=== PATIENT | male | born 1980 | race African-American/Black ===

== ENCOUNTER 2016-11-14 12:08 | Emergency (ER) ==
[2016-11-14 12:57] LABS: MANUAL DIFF NEEDED? NO
[2016-11-14 13:03] LABS: BASO% 0.4 % (0.0-0.8); EOS# 0.23 X1000 (0.0-0.7); EOS% 2.2 % (0.0-10.0); HEMATOCRIT 40.6 % (42.0-52.0); HEMOGLOBIN 13.6 g/dL (14.0-18.0); IMM GRAN# 0.02 X1000 (0.0-0.04); IMM GRAN% 0.2 % (0.0-0.5); LYMPH# 2.31 X1000 (1.2-3.4); LYMPH% 22.3 % (20.5-51.1); MCH 33.7 PG (27-31); MCHC 33.5 g/dL (33-37); MCV 100.7 FL (81-99); MONO# 0.83 X1000 (0.11-0.59); MPV 9.8 FL (7.4-10.4); NEUT% 66.9 % (42.2-75.2); PLT 203 X1000 (130-400); RBC 4.03 XMIL (4.7-6.1)
[2016-11-14 13:20] LABS: INR 1.44; PROTIME 14.6 Seconds (9.2-11.7); PTT 24.4 Seconds (22.0-36.0)
[2016-11-14 13:30] LABS: ALBUMIN 3.5 g/dL (3.5-5.0); CALCIUM 9.5 mg/dL (8.8-10.2); MAGNESIUM 1.8 mg/dL (1.5-2.7); POTASSIUM 3.9 mmol/L (3.5-5.1); TOTAL BILIRUBIN 2.25 mg/dL (0.20-1.00)
--- NOTE | 2016-11-14 13:35 | ED EKG INTERP ---
EKG Interpretation - EKG Time of EKG reading by physician:: 12:23 EKG Read and Signed by:: Jessica Roy EKG Interpretation (*Must complete 3 of following elements*): Abnormal Rate: 88 (possible left atrial enlargement; left anterior fasciclar block; possible anterior infarct; ST and T wave abnormality, consider lateral ischemia ) Rhythm: NSR Attestation - Scribe Verification/Attestation Scribe:: Ekaterina Suárez Acting as Scribe for:: Jessica Roy Scribe documention review:: This chart was documented by a scribe and accurately reflects the service the provider performed and the decisions made by the provider.
[2016-11-14] MEDS ORDERED: LASIX IV ONE (13:47)
[2016-11-14] MEDS ORDERED: VALIUM PO ONE (13:47)
--- NOTE | 2016-11-14 13:54 | PROVIDER DOCUMENTATION ---
HPI-General Adult - General Chief Complaint: Anxiety Stated Complaint: GENERAL Time Seen by Provider: 11/14/16 13:43 Source: patient Allergies/Adverse Reactions: Patient Allergies Allergy/AdvReac Type Severity Reaction Status Date / Time No Known Allergies Allergy Verified 11/14/16 14:19 Home Medications: Home Medication List Medication Instructions Recorded Confirmed Last Taken Type Amlodipine [Norvasc] 5 mg PO DAILY #30 tablet 04/29/16 3 Days Ago Rx Carvedilol [Coreg] 12.5 mg PO BID #60 tablet 04/29/16 3 Days Ago Rx Furosemide 40 mg PO DAILY #30 tablet 04/29/16 3 Days Ago Rx Isosorbide Mononitrate E.r. [Imdur] 60 mg PO DAILY #60 tablet 04/29/16 3 Days Ago Rx LISINOpril [Prinivil] 10 mg PO BID #60 tablet 04/29/16 3 Days Ago Rx - History of Present Illness -Gen Adult Nature of Presenting Problems: Pt is a 36 yom who came to the ED with a cc of chest pain/ panic attack. Pt reports he had pneumonia a year ago and he said he hasn't felt better ever since then. Pt reports he has anxiety and he is taking his friends xanax but hasn't taken it in four days. Pt reports his chest is hurting and thinks its a panic attack. Pt has a hx of a stroke. Location of Pain/Injury: reports: chest Pain Radiation: reports: no radiation Quality of Pain: reports: sharp, tightness Severity: reports: mild Onset/Duration: reports: unsure Timing: reports: still present Associated Symptoms: reports: anxiety, chest pain Similar Symptoms Previously?: No Recently seen or treated by another doctor?: No Review of Systems - Adult - REVIEW OF SYSTEMS - ADULT Constitutional: denies: chills, fever Eyes: denies: decreased vision, double vision Ears, Nose, Mouth & Throat: reports: no symptoms reported Cardiovascular: reports: chest pain. denies: orthopnea, poor circulation Respiratory: reports: no symptoms reported Gastrointestinal: reports: no symptoms reported Genitourinary: reports: no symptoms reported Musculoskeletal: reports: no symptoms reported Integumentary: reports: no symptoms reported Neurological: reports: no symptoms reported Psychiatric: reports: anxiety, panic attacks. denies: anti-depressant use, emotional problems Endocrine: reports: no symptoms reported Hematologic/Lymphatic: reports: no symptoms reported Allergic/Immunologic: reports: no symptoms reported All Other Systems: Reviewed and Negative Past History - Adult - PAST MEDICAL HISTORY-ADULT Review of Records: reports: Old Records Reviewed, Nursing Assessment Review Major Childhood Illnesses: reports: denies history Cardiovascular: reports: HTN Respiratory: reports: denies history. denies: asthma Gastrointestinal: reports: denies history. denies: hepatitis Obstetrical/Gynecological: reports: denies history Genitourinary: reports: denies history Musculoskeletal: reports: denies history Neurological: reports: denies history Endocrine/Immune: reports: denies history Other Conditions: reports: denies history - PRIOR SURGERIES/PROCEDURES Surgical/Procedure History: reports: none - PRIOR HOSPITALIZATIONS Prior Hospitalizations: reports: none - IMMUNIZATION STATUS Childhood Immunizations: See Nurse Assessment Flu Vaccine: See Nurse Assessment - FAMILY HISTORY Family History: reviewed, not pertinent Physical Exam-General - PHYSICAL EXAM-ADULT Initial Vital Signs Reviewed: Yes - CONSTITUTIONAL General Appearance: alert, anxious - EYES Eyes: PERRL/EOMI, pink conjunctivae, fundi clear, no AV nicking - HEAD, EARS, NOSE, MOUTH & THROAT HENMT: normocephalic/atraumatic, moist mucous membranes, normal ENT inspection, TMs normal - RESPIRATORY Respiratory: chest non-tender, lungs clear, normal breath sounds, other ( tachypnic) - CARDIOVASCULAR Cardiovascular: normal peripheral pulses, regular rate, rhythm - GASTROINTESTINAL (ABDOMEN) Abdominal Exam: normal bowel sounds, non tender, soft - MUSCULOSKELETAL Back Exam: normal inspection, no CVA tenderness Extremity: non-tender - NEUROLOGIC Neurologic: grossly normal - PSYCHIATRIC Psych/Mental Status: oriented x 3, anxious Progress - PLAN OF CARE/RESULTS Progress/Plan/Lab Results: Vital Signs - 24 hr 11/14/16 12:15 Temperature 97.5 F L Pulse Rate 90 Respiratory 24 Rate Blood Pressure 166/121 O2 Sat by Pulse 99 Oximetry Orders Category Date Time Status IV Insertion ORDERED Care 11/14/16 13:47 Active ANGIOGRAM/PULMONARY ARTERIES [CT] Stat Exams 11/14/16 13:47 Ordered CHEST-2 VIEWS [RAD] Stat Exams 11/14/16 12:28 Taken CBC WITH ELECTRONIC DIFF [HEME] Stat Lab 11/14/16 12:30 Completed CK PROFILE [SP CHEM] Stat Lab 11/14/16 12:30 Completed COMPREHENSIVE METABOLIC PANEL [CHEM] Stat Lab 11/14/16 12:30 Completed D-DIMER [CHEM] Stat Lab 11/14/16 12:30 Completed MAGNESIUM [CHEM] Stat Lab 11/14/16 12:30 Completed PRO B-NATRIURETIC PEPTIDE Stat Lab 11/14/16 12:30 Completed PROTIME WITH INR [COAG] Stat Lab 11/14/16 12:30 Completed PTT [COAG] Stat Lab 11/14/16 12:30 Completed TROPONIN T Stat Lab 11/14/16 12:30 Completed Diazepam [Valium] Med 11/14/16 13:47 Discontinued 2 mg PO NOW ONE Furosemide [Lasix] Med 11/14/16 13:47 Discontinued 60 mg IV NOW ONE EKG [EKG] Stat Ther 11/14/16 12:18 Ordered Laboratory Tests 11/14/16 11/14/16 11/14/16 12:30 12:30 12:30 WBC 10.35 RBC 4.03 L Hgb 13.6 L Hct 40.6 L MCV 100.7 H MCH 33.7 H MCHC 33.5 RDW Std Deviation 13.2 Plt Count 203 MPV 9.8 Immature Gran % (Auto) 0.2 Neut % (Auto) 66.9 Lymph % (Auto) 22.3 Baldwin % (Auto) 8.0 Eos % (Auto) 2.2 Baso % (Auto) 0.4 Immature Gran # (Auto) 0.02 Neut # (Auto) 6.92 H Lymph # (Auto) 2.31 Baldwin # (Auto) 0.83 H Eos # (Auto) 0.23 Baso # (Auto) 0.04 PT INR PTT (Actin FS) D-Dimer 3.15 H Sodium 138 Potassium 3.9 Chloride 99 Carbon Dioxide 24 L Anion Gap 15 BUN 18 Creatinine 1.7 H Estimated GFR/1.73 m2 55 BUN/Creatinine Ratio 11 Glucose 153 H Calculated Osmolality 281 Calcium 9.5 Magnesium 1.8 Total Bilirubin 2.25 H AST 166 H ALT 200 H Alkaline Phosphatase 90 Creatine Kinase 108 Troponin T [id number]-[id number] Pept Total Protein 6.0 L Albumin 3.5 Globulin 2.5 Albumin/Globulin Ratio 1.4 11/14/16 11/14/16 11/14/16 12:30 12:30 12:30 WBC RBC Hgb Hct MCV MCH MCHC RDW Std Deviation Plt Count MPV Immature Gran % (Auto) Neut % (Auto) Lymph % (Auto) Baldwin % (Auto) Eos % (Auto) Baso % (Auto) Immature Gran # (Auto) Neut # (Auto) Lymph # (Auto) Baldwin # (Auto) Eos # (Auto) Baso # (Auto) PT 14.6 H INR 1.44 PTT (Actin FS) 24.4 D-Dimer Sodium Potassium Chloride Carbon Dioxide Anion Gap BUN Creatinine Estimated GFR/1.73 m2 BUN/Creatinine Ratio Glucose Calculated Osmolality Calcium Magnesium Total Bilirubin AST ALT Alkaline Phosphatase Creatine Kinase Troponin T < 0.010 [id number] Pept 8106 H Total Protein Albumin Globulin Albumin/Globulin Ratio - REASSESSMENT Reassessment #1 Time Reassessed: 15:50 (pt reports he feels better after urinating all of the fluid off. ) Status: improving Reassessment #2 Time Reassessed: 16:07 (pt feels better with medication and will follow up with a PCP. Pt is okay with going home. ) Status: improving - CT/MRI 1 CT Study: Angiogram (1. No evidence of pulmonary embolism 2. Cardiomegaly with apparent mild pulmonary edema/congestive heart failure.) Departure - Departure Time of Disposition Order: 16:06 DIAGNOSIS: Panic attack Congestive heart failure (CHF) Qualifiers: Congestive heart failure type: unspecified congestive heart failure type Congestive heart failure chronicity: unspecified congestive heart failure chronicity Qualified Code(s): I50.9 - Heart failure, unspecified Hypertension Qualifiers: Hypertension type: unspecified secondary hypertension Qualified Code(s): I15.9 - Secondary hypertension, unspecified; I15 - Secondary hypertension Disposition: HOME 01 Certified Medical Emergency: Emergent Condition: Stable Attestation - Scribe Verification/Attestation Scribe:: Ekaterina Suárez Acting as Scribe for:: Jessica Roy Scribe documention review:: This chart was documented by a scribe and accurately reflects the service the provider performed and the decisions made by the provider.
[2016-11-14] MEDS ORDERED: XOPENEX NEB INH ONE (14:04)
[2016-11-14] MEDS ORDERED: NS NEB INH SCH (14:15)
--- NOTE | 2016-11-14 15:36 | Diag Imaging Result Document ---
PROCEDURE NAME: ANGIOGRAM/PULMONARY ARTERIES - 11/14/2016 CT ANGIOGRAM OF PULMONARY ARTERIES WITH CONTRAST: Exam performed with intravenous contrast. A dose-reduction protocol was used. Axial and reformatted coronal images are obtained. COMPARISON: 02/04/2016. FINDINGS: There are no filling defects identified in the pulmonary arteries. There is cardiomegaly similar to the previous exam. There is a small right pleural effusion. There are hazy bilateral pulmonary opacities which may relate to pulmonary edema. There is mild valvular infiltrate or edema at the inferior right lower lobe. There is apparent mild scarring at the anterior right lower lobe. There is no dense consolidation or pneumothorax identified. IMPRESSION: 1. No evidence of pulmonary embolism. 2. Cardiomegaly with apparent mild pulmonary edema/congestive heart failure.
[2016-11-14 15:42] VITALS: BP 167/99
[2016-11-14] MEDS ORDERED: CATAPRES PO ONE (15:50)
--- NOTE | 2016-11-14 15:59 | Diag Imaging Result Document ---
PROCEDURE NAME: CHEST-2 VIEWS - 11/14/2016 CHEST 2 VIEWS: COMPARISON: 04/25/2016. FINDINGS: There is stable cardiomegaly. There is mild infiltrate or edema at the right base. There is no dense consolidation, gross pulmonary edema, pleural effusion, or pneumothorax identified. IMPRESSION: Stable cardiomegaly. Mild infiltrate or edema at the right base.
--- NOTE | 2016-11-16 10:38 | EKG Report ---
Test Performed on : 11/14/2016 12:23:25 PM Test Reason : anxiety Blood Pressure : / mmHG Vent. Rate : 088 BPM Atrial Rate : 088 BPM P-R Int : 174 ms QRS Dur : 094 ms QT Int : 402 ms P-R-T Axes : 059 -50 117 degrees QTc Int : 486 ms Normal sinus rhythm. Possible Left atrial enlargement Left anterior fascicular block Cannot rule out Inferior infarct (masked by fascicular block?) , age undetermined Possible Anterior infarct , age undetermined ST & T wave abnormality, consider lateral ischemia Abnormal ECG No previous ECGs available Unconfirmed Result
== END 2016-11-14 16:35 | disposition home or self-care (01) ==
LOC: ED 12:08
DX: F41.0 Panic disorder [episodic paroxysmal anxiety] (principal); I50.9 Heart failure, unspecified; I10 Essential (primary) hypertension; R94.31 Abnormal electrocardiogram [ECG] [EKG]; R07.89 Other chest pain; R06.82 Tachypnea, not elsewhere classified; Z86.73 Personal history of transient ischemic attack (TIA), and cerebral infarction without residual deficits
CPT/HCPCS: 71020; 71275; 80053; 82550; 83735; 83880; 84484; 85025; 85379; 85610; 85730; 93005; 94640; J1940; Q9967

== ENCOUNTER 2019-06-05 18:09 | Inpatient (IN) ==
[2019-06-05] MEDS ORDERED: LASIX IV ONE (18:49)
[2019-06-05 19:15] LABS: BASO# 0.04 X1000 (0.0-0.2); BASO% 0.3 % (0.0-0.8); EOS# 0.24 X1000 (0.0-0.7); EOS% 1.7 % (0.0-10.0); HEMATOCRIT 40.3 % (42.0-52.0); HEMOGLOBIN 13.9 g/dL (14.0-18.0); IMM GRAN# 0.04 X1000 (0.0-0.04); IMM GRAN% 0.3 % (0.0-0.5); LYMPH# 3.84 X1000 (1.2-3.4); LYMPH% 27.5 % (20.5-51.1); MCH 31.8 PG (27-31); MCHC 34.5 g/dL (33-37); MCV 92.2 FL (81-99); MONO# 1.39 X1000 (0.11-0.59); MPV 10.2 FL (7.4-10.4); NEUT# 8.41 X1000 (1.4-6.5); NEUT% 60.2 % (42.2-75.2); PLT 191 X1000 (130-400); RBC 4.37 XMIL (4.7-6.1); RDW 14.6 % (11.5-14.5); WBC 13.96 X1000 (4.8-10.8)
[2019-06-05 19:36] LABS: AGAP 14; ALBUMIN 3.9 g/dL (3.5-5.0); ALKALINE PHOSPHATASE 79 U/L (32-122); BUN 17 mg/dL (8-22); CALCIUM 8.8 mg/dL (8.8-10.2); CHLORIDE 100 mmol/L (98-107); COSMO 274; CREATININE 1.2 mg/dL (0.7-1.2); ESTIMATED GFR > 60; GLUCOSE 116 mg/dL (70-104); GOT 138 U/L (10-34); GPT 372 U/L (10-44); LIPASE 31 U/L (13-60); POTASSIUM 3.1 mmol/L (3.5-5.1); SODIUM 136 mmol/L (136-145); TCO2 22 mmol/L (25-35); TOTAL PROTEIN 6.8 g/dL (6.3-8.3)
[2019-06-05 19:37] LABS: AMYLASE 39 U/L (20-200); CK PROFILE 156 U/L (24-204)
--- NOTE | 2019-06-05 20:06 | Diag Imaging Result Doc PS360 ---
CHEST-PORTABLE - 06/05/2019 INDICATION: shortness of breath COMPARISON: 12/22/2016 FINDINGS: Stable cardiomegaly. Pulmonary vascularity is top normal. No infiltrates or edema. No pneumothorax or pleural effusion. IMPRESSION: Cardiomegaly. Electronically signed by Kaushik Mcelroy 06/05/2019 8:03 PM
[2019-06-05 23:38] LABS: BILIRUBIN URINE NEGATIVE (NEGATIVE); BLOOD URINE NEGATIVE (NEGATIVE); CLARITY CLEAR (CLEAR); COLOR YELLOW; GLUCOSE URINE NEGATIVE (NEGATIVE); KETONE URINE NEGATIVE (NEGATIVE); LEUKOCYTES URINE NEGATIVE (NEGATIVE); NITRITE URINE NEGATIVE (NEGATIVE); PROTEIN URINE TRACE mg/dL (NEGATIVE); SP GRAVITY URINE 1.005; UROBILINOGEN URINE NORMAL
[2019-06-05] MEDS: XANAX PO PRN (23:47)
[2019-06-05] MEDS: CATAPRES PO SCH (23:47)
[2019-06-05 23:48] LABS: URINE BACTERIA 3+ /HFP; URINE EPITHELIAL CELLS <10 /HPF (<10); URINE YEAST NONE SEEN /HPF
[2019-06-05 23:49] LABS: URINE CAST NONE SEEN /LPF; URINE CRYSTAL CA OXALATE PRESENT /HPF
[2019-06-05 23:50] LABS: URINE SOURCE CLEAN CATCH; URINE WBC <10 /HPF (<10)
--- NOTE | 2019-06-06 03:20 | EKG Report ---
Test Performed on : 06/05/2019 9:27:45 PM Test Reason : shortness of breath Blood Pressure : / mmHG Vent. Rate : 084 BPM Atrial Rate : 084 BPM P-R Int : 166 ms QRS Dur : 110 ms QT Int : 460 ms P-R-T Axes : 060 -50 100 degrees QTc Int : 543 ms Normal sinus rhythm. Biatrial enlargement Pulmonary disease pattern Left anterior fascicular block Left ventricular hypertrophy ST & T wave abnormality, consider lateral ischemia Prolonged QT Abnormal ECG When compared with ECG of 05-DEC-2018 19:19, premature ventricular complexes. are no longer present Nonspecific T wave abnormality now evident in Anterior leads Unconfirmed Result
[2019-06-06 06:33] LABS: BASO# 0.04 X1000 (0.0-0.2); BASO% 0.3 % (0.0-0.8); EOS# 0.28 X1000 (0.0-0.7); EOS% 1.9 % (0.0-10.0); HEMATOCRIT 39.5 % (42.0-52.0); HEMOGLOBIN 13.1 g/dL (14.0-18.0); IMM GRAN# 0.06 X1000 (0.0-0.04); IMM GRAN% 0.4 % (0.0-0.5); LYMPH# 4.23 X1000 (1.2-3.4); MCH 31.1 PG (27-31); MCHC 33.2 g/dL (33-37); MCV 93.8 FL (81-99); MONO# 1.83 X1000 (0.11-0.59); MONO% 12.5 % (1.7-9.3); MPV 10.3 FL (7.4-10.4); NEUT# 8.15 X1000 (1.4-6.5); NEUT% 55.9 % (42.2-75.2); PLT 181 X1000 (130-400); RBC 4.21 XMIL (4.7-6.1); RDW 14.8 % (11.5-14.5); WBC 14.59 X1000 (4.8-10.8)
[2019-06-06 06:38] LABS: ALBUMIN 3.6 g/dL (3.5-5.0); CALCIUM 8.9 mg/dL (8.8-10.2); CREATININE 1.4 mg/dL (0.7-1.2); PHOSPHORUS 3.1 mg/dL (2.7-4.5); POTASSIUM 3.6 mmol/L (3.5-5.1)
[2019-06-06] MEDS ORDERED: POTASSIUM CHLORIDE 60 MEQ in NS 500 ML IV ONE (08:00)
[2019-06-06] MEDS ORDERED: PRINIVIL PO SCH (09:00)
[2019-06-06] MEDS: PRINIVIL PO SCH (09:32)
[2019-06-06] MEDS: LASIX IV SCH ×2 (09:32→21:38)
[2019-06-06] MEDS: NORVASC PO SCH (09:32)
[2019-06-06] MEDS: CATAPRES PO SCH ×3 (09:32→17:21)
[2019-06-06] MEDS: XANAX PO PRN (09:45)
--- NOTE | 2019-06-06 13:42 | ECHO REPORT ---
ORDER DATE: 06/05/2019 INDICATION FOR THE STUDY: Congestive heart failure. FINDINGS: 1. The right atrium is severely enlarged with a dimension of 5.6 cm. 2. Moderate tricuspid regurgitation. RV systolic pressure of 56. 3. The right ventricle is dilated with severe reduction in RV systolic function. 4. Mild pulmonic insufficiency. 5. Severe left atrial enlargement with a volume index of 70. 6. No mitral valve prolapse. There is apical tenting of the mitral leaflets, consistent with a dilated left ventricle. Mild to moderate mitral regurgitation. No evidence of mitral stenosis. 7. Severe dilatation of the left ventricle with an end-diastolic dimension of 7.5 cm. Normal wall thicknesses with a posterior and interventricular septal wall thickness of 0.9 cm each. Severe reduction in LV systolic function with an estimated ejection fraction of 10%. Definity echocontrast was used and seems to demonstrate thrombus adherent to the distal inferior wall. The ejection fraction was noted to be 15-20% in April of 2016. 8. The aortic valve opens well. It is trileaflet. Mild insufficiency. No stenosis. 9. The aorta appears normal in visualized segments. 10. There is no pericardial effusion identified on this study. IMPRESSION: 1. Severe four-chamber enlargement. 2. Severe biventricular systolic dysfunction with a left ventricular systolic function of 10%. 3. Likely ventricular thrombus identified adherent to the distal inferior wall. Results of this were relayed to the primary team at 1325 hours. 4. Valvular insufficiencies as described above. cc: MD Preston Brown MD
[2019-06-06] MEDS ORDERED: LOVENOX SUBQ ONE (15:00)
[2019-06-06 15:17] LABS: INR 1.26; PROTIME 16.5 Seconds (11.0-16.0)
[2019-06-06] MEDS: COUMADIN PO SCH (21:38)
--- NOTE | 2019-06-06 23:24 | HISTORY AND PHYSICAL ---
CHIEF COMPLAINT: Shortness of breath. HISTORY OF PRESENT ILLNESS: The patient is a 38-year-old male whose entire history is unfortunately quite difficult to follow. He states that he just got out of correction today, but notes that he has been out of his medications for a month. He then states he has been having symptoms for a day or 2. Upon asking the question again, he has had symptoms for 2 or 3 weeks. He notes that he has had increased cough, increased shortness of breath and increased swelling. All of these symptoms seem to worsen when he lies in the bed. ALLERGIES: No known drug allergies. MEDICATIONS: He appears to have been on Lasix 40 mg, Norvasc 10 mg, clonidine 0.1 t.i.d. and lisinopril 10, although it is unclear as to when he has taken these in the past. PAST MEDICAL HISTORY: Congestive heart failure. He has had a stroke that affected his vision and his memory. PAST SURGICAL HISTORY: Denies any surgical intervention. REVIEW OF SYSTEMS: As noted above. Denies any fevers or chills. He does have cough, congestion, shortness of breath, increased work of breathing, dyspnea on exertion, pedal edema, PND, orthopnea. Denies true chest pains. Denies headaches. Denies focalized weakness. Denies dysuria or frequency. Denies constipation, melena or hematochezia. FAMILY HISTORY: Positive for hypertension. SOCIAL HISTORY: The patient does have a history of smoking, although notes he has not been smoking recently. Denies any recent illicit drug use. PHYSICAL EXAMINATION: VITAL SIGNS: Temperature 97 degrees, pulse 75, respiratory 18, BP 130/100, saturation 99% on room air. GENERAL: The patient is awake, alert, currently in mild respiratory distress, but he is also lying flat in his bed as he has just had an echocardiogram. HEENT: Normocephalic. NECK: Supple. No appreciable JVD. CARDIOVASCULAR: Regular rate. No murmurs. CHEST: Decreased breath sounds bilaterally, with mild wheezing throughout. The patient is obviously short of breath. ABDOMEN: Soft, nondistended. EXTREMITIES: Moves all extremities. He has trace edema. NEUROLOGIC: No focal changes. LABORATORY DATA: WBC is 13, creatinine 1.2, glucose 116. DIAGNOSTIC DATA: Chest x-ray demonstrates cardiomegaly, and pulmonary vascularity appears to be increased. ASSESSMENT: Congestive heart failure with exacerbation. The patient has not had an echocardiogram recently. We are going to perform this, place him on Lasix intravenously. Use breathing treatments as needed. Further orders as needed. ADDENDUM: Prior to dictation, the patient has had an echocardiogram. It demonstrates a significantly depressed EF of 10% as well as a probable LV thrombus. We have consulted Cardiology, given this information. We are going to transfer him to [facility] for further evaluation, place him on Lasix as well as Lovenox until we can further delineate the thrombus. cc: Shaheen Page MD
[2019-06-07] MEDS: LOVENOX SUBQ SCH ×2 (05:18→18:17)
[2019-06-07 06:37] LABS: INR 1.19; PROTIME 15.3 Seconds (11.0-16.0)
[2019-06-07 07:16] LABS: AGAP 15; ALBUMIN 3.6 g/dL (3.5-5.0); BUN 20 mg/dL (8-22); CALCIUM 8.5 mg/dL (8.8-10.2); CHLORIDE 100 mmol/L (98-107); COSMO 289; CREATININE 1.3 mg/dL (0.7-1.2); ESTIMATED GFR > 60; GLUCOSE 99 mg/dL (70-104); POTASSIUM 2.8 mmol/L (3.5-5.1); SODIUM 144 mmol/L (136-145); TCO2 29 mmol/L (25-35)
[2019-06-07] MEDS: CATAPRES PO SCH (08:37)
[2019-06-07] MEDS: LASIX IV SCH ×2 (08:37→20:06)
[2019-06-07] MEDS: PRINIVIL PO SCH (08:38)
[2019-06-07] MEDS: NORVASC PO SCH (08:38)
[2019-06-07] MEDS ORDERED: KLOR-CON PO ONE ×2 (08:58→14:47)
[2019-06-07] MEDS: COREG PO SCH ×2 (15:40→20:06)
[2019-06-07] MEDS: COUMADIN PO SCH (20:06)
--- NOTE | 2019-06-08 00:33 | CONSULTATION ---
DATE OF CONSULTATION: 06/07/2019 IMPRESSION: 1. Left ventricular thrombus. 2. Acute on chronic systolic heart failure, improving with diuresis. 3. Severe nonischemic cardiomyopathy. 4. Polysubstance abuse. 5. Previous pulmonary embolus in the past. 6. Hypertension. 7. Tobacco abuse. RECOMMENDATIONS: 1. Continue ANGEL inhibitor and beta-dot. 2. Continue diuresis. 3. Anticoagulation with Lovenox, transitioning to warfarin is appropriate. Target INR is 2.0 to 3.0. The rationale for anticoagulation discussed with the patient. 4. Cessation of polysubstance abuse and smoking strongly advised. HISTORY: This is a 38-year-old, male with past history of severe nonischemic cardiomyopathy, polysubstance abuse with cocaine, chronic cigarette use, previous pulmonary embolus, and hypertension was admitted for further management of acute on chronic systolic heart failure. He has had progressive shortness of breath for more than a week as well as some lower extremity swelling. He was recently hospitalized. He was recently incarcerated for a few weeks and was unable to get his medications during that time. He is being diuresed with IV Lasix and is improving. Echocardiography demonstrated severely depressed left ventricular ejection fraction of 10 to 15 percent as well as apical thrombus. PAST MEDICAL HISTORY: 1. Chronic systolic heart failure. 2. Severe nonischemic cardiomyopathy. 3. Polysubstance abuse. 4. Hypertension. 5. Previous pulmonary embolus. 6. Hypertension. 7. Previous cerebrovascular accident. PAST SURGICAL HISTORY: None. ALLERGIES: No known drug allergies. MEDICATIONS PRIOR TO ADMISSION: As listed. SOCIAL HISTORY: He is . He is disabled but has not obtained disability through SSI. He smokes 1/2 pack of cigarettes per day. He has history of cocaine abuse. Does not use alcohol. FAMILY HISTORY: Positive for hypertension. REVIEW OF SYSTEMS: Pulmonary: Noncontributory beyond history of present illness. Gastrointestinal: Noncontributory beyond history of present illness. Constitutional: Noncontributory beyond history of present illness. Remainder review of systems negative/noncontributory with 14 total systems reviewed. PHYSICAL EXAM: General: This is an adult male, in no distress on room air. Vital signs: Blood pressure 121/91, heart rate 88. HEENT: Extraocular movements appear intact. Mucous membranes are moist. Neck: Supple without jugular venous distention evident. Chest: Clear to auscultation. Cardiac: Reveals a regular rate and rhythm without appreciable murmur or gallop. Abdomen: Soft. Bowel sounds normal. Extremities: Without edema. Neurologic: Reveals him to be alert and fully oriented. Speech is fluent. Moves all 4 extremities equally well. Skin: Warm and dry. Psychiatric: Reveals mood to be appropriate. PERTINENT DATA: A 12-lead electrocardiogram demonstrates normal sinus rhythm, biatrial enlargement, left anterior fascicular block, and left hypertrophy with repolarization abnormality. LABORATORY DATA: Includes a sodium 144, potassium 2.8, chloride 100, carbon dioxide 29, BUN 20, creatinine 1.3. Glucose 99. White blood cell count 14.6, hematocrit 39.5, hemoglobin 13.1, platelet count 181,000. CPK 156. Troponin T less than 0.01. cc: Chapo Ward MD
[2019-06-08] MEDS: TYLENOL PO PRN ×3 (03:14→23:02)
--- NOTE | 2019-06-08 03:49 | PROGRESS NOTE ---
DATE: 06/07/2019 SUBJECTIVE: The patient is resting comfortably in bed. He denies any shortness of breath. He states that the swelling in his legs is a little bit better. OBJECTIVE: Vital Signs: Temperature 97.8 degrees, blood pressure 116/90, heart rate 91, respirations 18, O2 saturation 99% on 2 L nasal cannula. Intake 925; output 1.2 L. General: This is a young male, lying in bed in no acute distress. Heart: S1, S2 normal. Regular rate and rhythm. Lungs: Equal air entry bilaterally. No wheezing. No rales. Abdomen: Positive bowel sounds. Soft, nontender, nondistended. Extremities: 2+ edema bilaterally. Neurologic: The patient is alert and oriented x4. LABS: Sodium 144, potassium 2.8, chloride 100, CO2 29, BUN 20, creatinine 1.3, glucose 99. ASSESSMENT AND PLAN: 1. Acute on chronic systolic CHF exacerbation. The patient is currently on diuretic therapy. Continue with the current medications as directed by the collar sewer. 2. Severe nonischemic cardiomyopathy. Aware. The patient likely needs a LifeVest or possible automatic implantable cardiac defibrillator implantation. Further discussions to be planned by the collar sewer. 3. Left ventricular thrombus. The patient is currently on full dose Lovenox and warfarin therapy. Monitor the INR daily. 4. Alcohol dependence. The patient has been counseled about alcohol cessation. 5. Hypokalemia. Will replace the patient's potassium. 6. Polysubstance abuse. Aware. Counseled the patient about cessation. cc: Alexa Enriquez MD MTDD
[2019-06-08] MEDS: LOVENOX SUBQ SCH ×2 (05:32→18:28)
--- NOTE | 2019-06-08 06:40 | Diag Imaging Result Doc PS360 ---
EXAM: CHEST-PORTABLE HISTORY: dyspnea TECHNIQUE: Chest single view COMPARISON: 06/05/2019 FINDINGS: The lungs are well expanded. The heart remains enlarged. No pulmonary edema. No pneumonia. No pleural effusions identified. IMPRESSION: Cardiomegaly Electronically signed by Reynold Holley 06/08/2019 6:38 AM
[2019-06-08 06:42] LABS: HEMATOCRIT 44.6 % (42.0-52.0); HEMOGLOBIN 15.8 g/dL (14.0-18.0); MCH 33.3 PG (27-31); MCHC 35.4 g/dL (33-37); MCV 94.1 FL (81-99); MPV 10.9 FL (7.4-10.4); RBC 4.74 XMIL (4.7-6.1); RDW 14.9 % (11.5-14.5); WBC 13.09 X1000 (4.8-10.8)
[2019-06-08 06:51] LABS: INR 1.12; PROTIME 14.6 Seconds (11.0-16.0)
[2019-06-08 07:09] LABS: AGAP 15; ALBUMIN 3.5 g/dL (3.5-5.0); BUN 25 mg/dL (8-22); CHLORIDE 101 mmol/L (98-107); COSMO 285; CREATININE 1.3 mg/dL (0.7-1.2); ESTIMATED GFR > 60; GLUCOSE 124 mg/dL (70-104); MAGNESIUM 1.8 mg/dL (1.5-2.7); PHOSPHORUS 3.9 mg/dL (2.7-4.5); POTASSIUM 3.6 mmol/L (3.5-5.1); SODIUM 140 mmol/L (136-145); TCO2 24 mmol/L (25-35)
--- NOTE | 2019-06-08 07:32 | EKG Report ---
Test Performed on : 06/08/2019 06:52:59 AM Test Reason : dyspnea Blood Pressure : / mmHG Vent. Rate : 070 BPM Atrial Rate : 070 BPM P-R Int : 174 ms QRS Dur : 104 ms QT Int : 450 ms P-R-T Axes : 052 -46 083 degrees QTc Int : 486 ms Normal sinus rhythm. Biatrial enlargement Left axis deviation Left ventricular hypertrophy Nonspecific ST and T wave abnormality Prolonged QT Abnormal ECG When compared with ECG of 05-JUN-2019 21:27, (Unconfirmed) Nonspecific T wave abnormality no longer evident in Anterior leads QT has shortened Confirmed by Laura DANIEL, Justen Betts ([id number]) on 06/09/2019 6:59:11 AM
[2019-06-08] MEDS: NORVASC PO SCH (08:17)
[2019-06-08] MEDS: COREG PO SCH ×2 (08:17→20:24)
[2019-06-08] MEDS: LASIX IV SCH ×2 (08:18→20:23)
[2019-06-08] MEDS: PRINIVIL PO SCH (08:18)
[2019-06-08] MEDS ORDERED: MAGNESIUM SULFATE 2 GM/S.W.I. 2 GM/50 ML IVPB IV ONE (08:23)
[2019-06-08] MEDS: XANAX PO PRN (08:28)
--- NOTE | 2019-06-08 18:29 | PROGRESS NOTE ---
DATE: 06/08/2019 SUBJECTIVE: Patient continues without chest discomfort or shortness of breath on room air. OBJECTIVE: Blood pressure 110/82, heart rate 78, oxygen saturation 95% on room air. There is no significant jugular venous distention. Chest is clear to auscultation. Cardiac exam reveals a regular rate and rhythm without appreciable murmur or gallop. Extremities are without edema. LABORATORY DATA: White blood cell count 13.09, hematocrit 44.6, hemoglobin 15.8 and platelet count 222,000. ProTime 14.6, INR 1.12. Sodium 140, potassium 3.6, chloride 101, carbon dioxide 24, BUN 25, creatinine 1.3, and glucose 124. IMPRESSION: 1. Chronic systolic heart failure. Volume status improved with diuresis. 2. Left ventricular thrombus. 3. Severe nonischemic cardiomyopathy. 4. Polysubstance abuse. 5. Previous pulmonary embolus in the past. 6. Hypertension. 7. Chronic cigarette use. RECOMMENDATIONS: 1. Reduce amlodipine to 5 mg daily and increase lisinopril. 2. Transition from IV Lasix to oral Lasix 40 mg p.o. daily. 3. Continue efforts to anticoagulate with Lovenox transitioning to warfarin once INR is at least 2.0. Target INR 2.0 to 3.0. 4. Cessation of polysubstance abuse and smoking strongly advised. cc: Chapo Ward MD
--- NOTE | 2019-06-08 20:23 | PROGRESS NOTE ---
DATE: 06/08/2019 SUBJECTIVE: The patient is resting comfortably in bed. He has no complaints today. OBJECTIVE: Vital Signs: Temperature 97.6 degrees, blood pressure 124/81, heart rate 83, respirations 16, O2 saturations 100% on room air. General: This is a young male lying in bed in no acute distress. Heart: S1, S2 normal. Regular rate and rhythm. Lungs: Clear to auscultation bilaterally. Abdomen: Positive bowel sounds. Soft, nontender, nondistended. Extremities: No edema, no cyanosis. Neurologic: The patient is alert and oriented x4. LABORATORY DATA: White blood cell count 13, hemoglobin 15, hematocrit 44, platelets 222,000. Sodium 140, potassium 3.6, chloride 101, CO2 24, BUN 25, creatinine 1.3, glucose 125. ASSESSMENT AND PLAN: 1. Acute on chronic systolic congestive heart failure exacerbation. Continue with the current medications as directed by the corporate vp advertising & online. 2. Severe nonischemic cardiomyopathy. Aware. The patient will likely need a LifeVest prior to discharge. 3. Left ventricular thrombus. Continue on Lovenox and full-dose warfarin. We will continue to monitor the INR until therapeutic. 4. Alcohol dependence. The patient has been counseled about alcohol cessation. 5. Polysubstance abuse. Aware. The patient has been counseled about cessation. 6. Chronic kidney disease. Stable. cc: Alexa Enriquez MD
[2019-06-08] MEDS: COUMADIN PO SCH (20:24)
[2019-06-09] MEDS: XANAX PO PRN (04:07)
[2019-06-09 05:42] LABS: INR 1.17; PROTIME 15.1 Seconds (11.0-16.0)
[2019-06-09 05:50] LABS: CALCIUM 9.4 mg/dL (8.8-10.2); CREATININE 1.6 mg/dL (0.7-1.2); POTASSIUM 3.5 mmol/L (3.5-5.1)
[2019-06-09] MEDS: LASIX IV SCH (08:06)
[2019-06-09] MEDS: COREG PO SCH ×2 (08:06→21:12)
[2019-06-09] MEDS: TYLENOL PO PRN ×2 (08:06→21:12)
[2019-06-09] MEDS: PRINIVIL PO SCH (08:06)
[2019-06-09] MEDS: NORVASC PO SCH (08:06)
[2019-06-09] MEDS: LOVENOX SUBQ SCH ×2 (08:11→21:12)
--- NOTE | 2019-06-09 17:42 | PROGRESS NOTE ---
DATE: 06/09/2019 SUBJECTIVE: The patient is resting comfortably in bed. He has no complaints. OBJECTIVE: Vital Signs: Temperature 98.5 degrees, blood pressure 138/86, heart rate 87, respirations 15, O2 saturations 100% on room air. General: This is an elderly male lying in bed in no acute distress. Heart: S1, S2 normal. Regular rate and rhythm. Lungs: Clear to auscultation bilaterally. Abdomen: Positive bowel sounds. Soft, nontender, nondistended. Extremities: No edema. No cyanosis. Neurologic: The patient is alert and oriented x3. LABORATORY DATA: Sodium 141, potassium 3.5, chloride 98, CO2 28, BUN 29, creatinine 1.6, glucose 127. ASSESSMENT AND PLAN: 1. Acute on chronic systolic congestive heart failure exacerbation. Improved. The patient's diuretic therapy has been discontinued. Continue to monitor closely. 2. Severe nonischemic cardiomyopathy. Aware. 3. Left ventricular thrombus. We will increase the warfarin dosage to 7.5 mg at bedtime. Continue with Lovenox bridge. Continue to monitor the INR daily. 4. Alcohol dependence. The patient has been counseled about cessation. 5. Acute kidney injury. This is likely diuretic induced. The diuretic has been discontinued. We will monitor the patient's renal function closely. 6. Polysubstance abuse. Aware. The patient has been counseled about cessation. cc: Alexa Enriquez MD
--- NOTE | 2019-06-09 18:52 | PROGRESS NOTE ---
DATE: 06/09/2019 SUBJECTIVE: Patient continues without chest discomfort or dyspnea. He continues on room air. OBJECTIVE: Vital Signs: Blood pressure 138/86, heart rate 87, oxygen saturation 100% on room air. Neck: Jugular venous distention cannot be appreciated. Chest: Clear to auscultation bilaterally. Cardiac Exam: Reveals a regular rate and rhythm without appreciable murmur or gallop. Extremities: Without edema. LABORATORY DATA: Includes pro time 15.1, INR 1.2. Sodium 141, potassium 3.5, chloride 98, carbon dioxide 28, BUN 29, creatinine 1.6. Glucose 127. IMPRESSION: 1. Chronic systolic heart failure. The patient probably a bit over diuresed today with rise in BUN and creatinine suggesting intravascular volume depletion. 2. Severe nonischemic cardiomyopathy. 3. Left ventricular thrombus. 4. Polysubstance abuse. 5. Previous pulmonary embolus in the past. 6. Hypertension. 7. Chronic cigarette use. RECOMMENDATIONS: 1. Stop IV Lasix. 2. Lasix "holiday" tomorrow and resume oral Lasix Wednesday morning. 3. Anticoagulation with Lovenox transitioning to warfarin with target INR 2.0 to 3.0. 4. Cessation of polysubstance abuse and smoking strongly advised. 5. Dr. Magallon available if needed over the weekend. cc: Chapo Ward MD
[2019-06-09] MEDS ORDERED: COUMADIN PO SCH (21:00)
[2019-06-10] MEDS: XANAX PO PRN (01:11)
[2019-06-10 06:40] LABS: INR 1.27; PROTIME 16.1 Seconds (11.0-16.0)
[2019-06-10 07:06] LABS: AGAP 14; BUN 27 mg/dL (8-22); CALCIUM 9.1 mg/dL (8.8-10.2); CHLORIDE 101 mmol/L (98-107); COSMO 288; CREATININE 1.2 mg/dL (0.7-1.2); ESTIMATED GFR > 60; GLUCOSE 102 mg/dL (70-104); POTASSIUM 3.7 mmol/L (3.5-5.1); SODIUM 142 mmol/L (136-145); TCO2 27 mmol/L (25-35)
[2019-06-10 07:19] LABS: MAGNESIUM 2.1 mg/dL (1.5-2.7); PHOSPHORUS 3.4 mg/dL (2.7-4.5)
[2019-06-10] MEDS: COREG PO SCH ×2 (09:33→20:00)
[2019-06-10] MEDS: NORVASC PO SCH (09:33)
[2019-06-10] MEDS: PRINIVIL PO SCH (09:33)
[2019-06-10] MEDS: LOVENOX SUBQ SCH ×2 (09:34→20:00)
--- NOTE | 2019-06-10 17:18 | PROGRESS NOTE ---
DATE: 06/10/2019 SUBJECTIVE: The patient is resting in bed. He has no complaints. OBJECTIVE: Vital signs: Temperature 98.5 degrees, blood pressure 146/85, heart rate 99, respirations 21, O2 saturation is 99% on room air. General: This is a young male lying in bed in no acute distress. Heart: S1, S2 normal. Regular rate and rhythm. Lungs: Clear to auscultation bilaterally. Abdomen: Positive bowel sounds. Soft, nontender, nondistended. Extremities: No edema. No cyanosis. Neurologic: The patient is alert and oriented x4. LABORATORY DATA: INR 1.27. Sodium 142, potassium 3.7, chloride 101, CO2 of 27, BUN 27, creatinine 1.2. ASSESSMENT AND PLAN: 1. Acute on chronic systolic congestive heart failure exacerbation. Continue on the current cardiac medications. 2. Severe nonischemic cardiomyopathy. Aware. 3. Left ventricular thrombus. Continue on warfarin plus Lovenox with a goal INR of 2 to 3. 4. Alcohol dependence. The patient has been counseled about cessation. 5. Acute kidney injury. Improved. The patient's diuretic therapy has been held. 6. Polysubstance abuse. The patient has been counseled about cessation. 7. Disposition. The patient should be able to be discharged home once his INR is therapeutic. The patient will require assistance with obtaining his prescriptions upon discharge. Sales Technician has been consulted. cc: Alexa Enriquez MD
[2019-06-10] MEDS: TYLENOL PO PRN (20:00)
[2019-06-10] MEDS: COUMADIN PO SCH (20:00)
[2019-06-11] MEDS: XANAX PO PRN (04:21)
[2019-06-11 06:30] LABS: INR 1.45; PROTIME 17.9 Seconds (11.0-16.0)
[2019-06-11 06:54] LABS: MAGNESIUM 1.9 mg/dL (1.5-2.7); PHOSPHORUS 2.6 mg/dL (2.7-4.5)
[2019-06-11 06:56] LABS: AGAP 10; BUN 22 mg/dL (8-22); CHLORIDE 105 mmol/L (98-107); COSMO 290; CREATININE 1.1 mg/dL (0.7-1.2); ESTIMATED GFR > 60; GLUCOSE 132 mg/dL (70-104); POTASSIUM 3.6 mmol/L (3.5-5.1); SODIUM 143 mmol/L (136-145); TCO2 28 mmol/L (25-35)
[2019-06-11] MEDS: COREG PO SCH ×2 (08:52→20:34)
[2019-06-11] MEDS: PRINIVIL PO SCH (08:52)
[2019-06-11] MEDS: NORVASC PO SCH (08:52)
[2019-06-11] MEDS: LASIX PO SCH (08:52)
[2019-06-11] MEDS: LOVENOX SUBQ SCH ×2 (08:54→20:35)
[2019-06-11] MEDS: TYLENOL PO PRN (16:20)
--- NOTE | 2019-06-11 17:09 | PROGRESS NOTE ---
DATE: 06/11/2019 SUBJECTIVE: The patient is resting comfortably in bed. He has no complaints at this time. OBJECTIVE: Vital Signs: Temperature 97.6 degrees, blood pressure 124/74, heart rate 91, respirations 18, O2 saturation is 100% on room air. General: This is a young male, lying in bed in no acute distress. Heart: S1, S2 normal. Regular rate and rhythm. Lungs: Equal air entry bilaterally. No wheezing. No rales. No rhonchi. Abdomen: Positive bowel sounds. Soft, nontender, nondistended. Extremities: No edema, no cyanosis. Neurologic: The patient is alert and oriented x4. LABORATORY DATA: INR 1.4. BUN 22, creatinine 1.1 glucose 132. ASSESSMENT AND PLAN: 1. Acute on chronic systolic congestive heart failure exacerbation. Stable. Continue with current cardiac medications. 2. Left ventricular thrombus. Continue on Lovenox and warfarin. The patient's INR is 1.4 today. 3. Severe nonischemic cardiomyopathy. Aware. The patient will need a LifeVest. 4. Alcohol dependence. The patient has been counseled about cessation. 5. Polysubstance abuse. The patient has been counseled about cessation. DISPOSITION: The patient will be discharged home once his INR is therapeutic. cc: Alexa Enriquez MD MTDD
[2019-06-11] MEDS: COUMADIN PO SCH (20:34)
[2019-06-12] MEDS: TYLENOL PO PRN ×2 (02:48→23:22)
[2019-06-12] MEDS: XANAX PO PRN ×2 (02:48→23:22)
[2019-06-12 06:12] LABS: HEMATOCRIT 44.4 % (42.0-52.0); HEMOGLOBIN 14.7 g/dL (14.0-18.0); MCH 31.9 PG (27-31); MCHC 33.1 g/dL (33-37); MCV 96.3 FL (81-99); MPV 10.2 FL (7.4-10.4); RBC 4.61 XMIL (4.7-6.1); RDW 14.4 % (11.5-14.5); WBC 12.75 X1000 (4.8-10.8)
[2019-06-12 06:27] LABS: INR 1.74; PROTIME 20.7 Seconds (11.0-16.0)
[2019-06-12 06:47] LABS: AGAP 12; ALBUMIN 3.4 g/dL (3.5-5.0); BUN 19 mg/dL (8-22); CALCIUM 8.7 mg/dL (8.8-10.2); CHLORIDE 104 mmol/L (98-107); COSMO 280; ESTIMATED GFR > 60; GLUCOSE 100 mg/dL (70-104); PHOSPHORUS 3.8 mg/dL (2.7-4.5); POTASSIUM 4.3 mmol/L (3.5-5.1); SODIUM 139 mmol/L (136-145); TCO2 23 mmol/L (25-35)
[2019-06-12] MEDS: PRINIVIL PO SCH (08:21)
[2019-06-12] MEDS: NORVASC PO SCH (08:21)
[2019-06-12] MEDS: COREG PO SCH ×2 (08:21→20:59)
[2019-06-12] MEDS: LOVENOX SUBQ SCH ×2 (08:21→21:00)
[2019-06-12] MEDS: LASIX PO SCH (08:21)
--- NOTE | 2019-06-12 10:19 | PROGRESS NOTE ---
DATE: 06/12/2019 SUBJECTIVE: The patient is resting comfortably in bed. He has no complaints. OBJECTIVE: Vital Signs: Temperature 97.7 degrees, blood pressure 138/84, heart rate 94, respirations 15, O2 saturation 98% on room air. General: This is a young male, lying in bed in no acute distress. Heart: S1, S2 normal. Regular rate and rhythm. Lungs: Equal air entry bilaterally. No wheezing. No rales. No rhonchi. Abdomen: Positive bowel sounds. Soft, nontender, nondistended. Extremities: No edema. No cyanosis. Neurologic: The patient is alert and oriented x4. LABORATORY DATA: White blood cell count 12. INR 1.7. Sodium 139, potassium 4.3, chloride 104, CO2 of 23, BUN 19, creatinine 1, glucose 100. ASSESSMENT AND PLAN: 1. Acute on chronic systolic congestive heart failure exacerbation. Continue with the current cardiac medications as directed by the plating tank operator apprentice. 2. Left ventricular thrombus. Continue on Lovenox and warfarin. The patient's INR is 1.7. 3. Severe nonischemic cardiomyopathy. Aware. The patient will likely need a LifeVest. 4. Alcohol dependence. The patient has been counseled about cessation. 5. Polysubstance abuse. The patient has been counseled about cessation. 6. Leukocytosis. Will check a urinalysis and a chest x-ray. cc: Alexa Enriquez MD
--- NOTE | 2019-06-12 11:06 | Diag Imaging Result Doc PS360 ---
CHEST-PORTABLE - 06/12/2019 INDICATION: dyspnea COMPARISON: 06/08/2019 FINDINGS: Stable cardiomegaly. Pulmonary vascularity is grossly normal. No infiltrates or edema. No pneumothorax or large pleural effusion. IMPRESSION: Cardiomegaly. Electronically signed by Kaushik Mcelroy 06/12/2019 11:04 AM
[2019-06-12 15:19] LABS: URINE SOURCE CLEAN CATCH
[2019-06-12 15:22] LABS: BILIRUBIN URINE NEGATIVE (NEGATIVE); BLOOD URINE NEGATIVE (NEGATIVE); COLOR YELLOW; GLUCOSE URINE NEGATIVE (NEGATIVE); KETONE URINE NEGATIVE (NEGATIVE); LEUKOCYTES URINE NEGATIVE (NEGATIVE); NITRITE URINE NEGATIVE (NEGATIVE); PROTEIN URINE NEGATIVE (NEGATIVE); SP GRAVITY URINE 1.012; TURBIDITY URINE CLEAR (CLEAR); UROBILINOGEN URINE NORMAL (NORMAL)
[2019-06-12 15:23] LABS: UR EPITHELIAL CELLS <10 /HPF (<10); URINE BACTERIA NEGATIVE /HPF; URINE RBC <10 /HPF (<10); URINE WBC <10 /HPF (<10)
--- NOTE | 2019-06-12 18:35 | PROGRESS NOTE ---
DATE: 06/12/2019 SUBJECTIVE: Patient continues without chest discomfort or shortness of breath on room air. OBJECTIVE: Vital Signs: Blood pressure 128/87, heart rate 90, oxygen saturation 100% on room air. Neck: There is no significant jugular venous distention. Chest: Clear to auscultation bilaterally. Cardiac: A regular rate and rhythm without appreciable murmur, rub, or gallop. There is no evidence of peripheral edema. LABORATORY DATA: Includes a white blood cell count 12.75, hematocrit 44.4, hemoglobin 14.7, platelet count 304,000. Pro time 20.7, INR 1.7, sodium 139, potassium 4.3, chloride 104, carbon dioxide 23, BUN 19, creatinine 1. IMPRESSION: 1. Chronic systolic heart failure. Patient appears to be near euvolemic. 2. Severe nonischemic cardiomyopathy. 3. Left ventricular thrombus. 4. Polysubstance abuse. 5. Previous pulmonary embolus in the past. 6. Hypertension. 7. Chronic cigarette use. RECOMMENDATIONS: 1. Continue current cardiovascular regimen, unchanged. 2. If blood pressure rises, consider further increase in lisinopril. 3. Continue efforts to anticoagulate with warfarin with target INR 2 to 3. 4. Cessation of polysubstance abuse and smoking strongly advised. 5. The patient approaching maximal hospital benefit. It would appear appropriate for him to be discharged home tomorrow. cc: Chapo Ward MD
[2019-06-12] MEDS: COUMADIN PO SCH (20:59)
[2019-06-13 07:08] LABS: INR 1.93; PROTIME 22.5 Seconds (11.0-16.0)
[2019-06-13 07:22] LABS: AGAP 12; ALBUMIN 3.4 g/dL (3.5-5.0); BUN 23 mg/dL (8-22); CALCIUM 9.1 mg/dL (8.8-10.2); CHLORIDE 105 mmol/L (98-107); COSMO 285; CREATININE 1.1 mg/dL (0.7-1.2); ESTIMATED GFR > 60; GLUCOSE 98 mg/dL (70-104); PHOSPHORUS 4.9 mg/dL (2.7-4.5); SODIUM 141 mmol/L (136-145); TCO2 24 mmol/L (25-35)
[2019-06-13] MEDS: COREG PO SCH (09:31)
[2019-06-13] MEDS: LASIX PO SCH (09:31)
[2019-06-13] MEDS: LOVENOX SUBQ SCH (09:31)
[2019-06-13] MEDS: NORVASC PO SCH (09:32)
[2019-06-13] MEDS: PRINIVIL PO SCH (09:32)
[2019-06-13 11:31] VITALS: BP 123/79
== END 2019-06-13 14:18 | disposition home or self-care (01) | DRG 292 ==
LOC: P.MEDSURG 18:09 → P.ED 18:09 → OBSVTOIN 22:21 → SUATTDRO 22:21 → 2N 06-06 20:02 → 4N 06-12 10:04
PROVIDERS: ATTEND Internal Medicine

== ENCOUNTER 2019-07-11 10:10 | Inpatient (IN) ==
--- NOTE | 2019-07-11 10:32 | EKG Report ---
Test Performed on : 07/11/2019 10:22:00 AM Test Reason : SOB Blood Pressure : / mmHG Vent. Rate : 080 BPM Atrial Rate : 080 BPM P-R Int : 184 ms QRS Dur : 110 ms QT Int : 450 ms P-R-T Axes : 063 -38 139 degrees QTc Int : 519 ms Normal sinus rhythm. Left atrial enlargement Left axis deviation Left ventricular hypertrophy ST & T wave abnormality, consider lateral ischemia Prolonged QT Abnormal ECG When compared with ECG of 08-JUL-2019 23:51, (Unconfirmed) Criteria for Inferior infarct are no longer present Unconfirmed Result
[2019-07-11] MEDS ORDERED: LASIX IV ONE (11:07)
[2019-07-11 11:28] LABS: BASO# 0.03 X1000 (0.0-0.2); BASO% 0.3 % (0.0-0.8); EOS# 0.28 X1000 (0.0-0.7); EOS% 2.4 % (0.0-10.0); HEMATOCRIT 40.2 % (42.0-52.0); HEMOGLOBIN 13.1 g/dL (14.0-18.0); IMM GRAN# 0.03 X1000 (0.0-0.04); IMM GRAN% 0.3 % (0.0-0.5); LYMPH# 2.92 X1000 (1.2-3.4); LYMPH% 25.3 % (20.5-51.1); MCH 31.1 PG (27-31); MCHC 32.6 g/dL (33-37); MCV 95.5 FL (81-99); MONO# 0.84 X1000 (0.11-0.59); MONO% 7.3 % (1.7-9.3); MPV 10.3 FL (7.4-10.4); NEUT# 7.43 X1000 (1.4-6.5); NEUT% 64.4 % (42.2-75.2); PLT 247 X1000 (130-400); RBC 4.21 XMIL (4.7-6.1); RDW 15.5 % (11.5-14.5); WBC 11.53 X1000 (4.8-10.8)
[2019-07-11 11:41] LABS: INR 5.3; PROTIME 50.5 Seconds (11.0-16.0)
[2019-07-11 11:51] LABS: AGAP 13; ALB/GLOB RATIO 1.5; ALKALINE PHOSPHATASE 81 U/L (32-122); BUN 18 mg/dL (8-22); CALCIUM 8.7 mg/dL (8.8-10.2); CHLORIDE 103 mmol/L (98-107); CK PROFILE 171 U/L (24-204); COSMO 287; CREATININE 1.4 mg/dL (0.7-1.2); ESTIMATED GFR > 60; GLUCOSE 105 mg/dL (70-104); GOT 45 U/L (10-34); GPT 51 U/L (10-44); POTASSIUM 3.6 mmol/L (3.5-5.1); SODIUM 143 mmol/L (136-145); TCO2 27 mmol/L (25-35); TOTAL BILIRUBIN 0.97 mg/dL (0.20-1.00); TOTAL PROTEIN 6.7 g/dL (6.3-8.3)
--- NOTE | 2019-07-11 12:49 | Diag Imaging Result Doc PS360 ---
EXAM: CT ANGIOGRM PULMONARY ARTERIES INDICATION: sob, PE TECHNIQUE: This exam was performed using automated exposure control, adjustment of mA or kV according to patient size, and/or use of iterative reconstruction technique. Thin section axial images and 3-D MIPS were obtained. COMPARISON: 11/14/2016 FINDINGS: There is no evidence of pulmonary embolism. The aorta is not opacified but there is no evidence of thoracic aortic aneurysm. There is marked cardiomegaly that is essentially stable. There are a few calcified mediastinal lymph nodes on the left indicating prior granulomatous disease. There are other small shotty nonspecific mediastinal and hilar lymph nodes bilaterally that are similar to the previous study. There is stable fibrosis and/or chronic atelectasis at both lower lobes near the base as well as the right middle lobe. There is mild patchy groundglass opacity in the right lower lobe near the base suggesting mild edema or possibly developing pneumonia. There is trace pleural fluid at the right lung base. Limited views of the upper abdomen reveals reflux of contrast into the hepatic veins, which is a feature of heart failure. There is stable thickening of the left adrenal gland likely representing an underlying adenoma or hyperplasia. IMPRESSION: 1.Mild patchy groundglass opacity in the right lower lobe near the base suggesting edema versus developing pneumonia. 2.Stable patchy scarring at the lower lung zones bilaterally. 3.Trace right pleural effusion. 4.Stable marked cardiomegaly. 5.No evidence of pulmonary embolism. Electronically signed by Joseph Tirado 07/11/2019 12:46 PM
--- NOTE | 2019-07-11 14:45 | PROVIDER DOCUMENTATION ---
HPI-Cardiac General - General Chief Complaint: Shortness of Breath Stated Complaint: SOB,CHF Time Seen by Provider: 07/11/19 10:49 Allergies/Adverse Reactions: Patient Allergies Allergy/AdvReac Type Severity Reaction Status Date / Time No Known Allergies Allergy Verified 07/11/19 10:42 Home Medications: Home Medication List Medication Instructions Recorded Confirmed Last Taken Type Carvedilol [Coreg] 12.5 mg PO BID #60 tab 06/13/19 07/11/19 07/10/19 07:00 Rx Furosemide [Lasix] 40 mg PO DAILY #30 tab 06/13/19 07/11/19 07/11/19 07:00 Rx LISINOpril [Prinivil] 10 mg PO DAILY #30 tab 06/13/19 07/11/19 07/10/19 07:00 Rx Warfarin [Coumadin] 10 mg PO QHS #30 tab 06/13/19 07/11/19 07/10/19 21:00 Rx - History of Present Illness-Cardiac Nature of Presenting Problem: Patient with a h/o HTN, CHF, polysubstance abuse recent PE on Coumadin. Patient is here today for sob. he was treated here a month ago but did not have a follow up with PCP. Present sob started 3 weeks ago and getting worse. He decided on coming to the ER instead of seeing his wood pile driver operator Dr Chapo Quiroz for a defibrillator today. Denies chest pain Location: reports: other (sob) Quality of Pain: reports: none Onset/Duration: 4-6 hours ago Timing: still present Context/Activities at Onset: reports: none Modifying Factors: improves with: exercise Palpitation Quality: N/A History of arrythmia: reports: A-Fib Nitro Today/Relief: reports: no nitro taken today Aspirin Treatment Today: reports: no aspirin today Review of Systems - Adult - REVIEW OF SYSTEMS - ADULT Constitutional: reports: no symptoms reported Eyes: reports: no symptoms reported Ears, Nose, Mouth & Throat: reports: no symptoms reported Cardiovascular: reports: see HPI Respiratory: reports: see HPI Gastrointestinal: reports: no symptoms reported Genitourinary: reports: no symptoms reported Musculoskeletal: reports: no symptoms reported Integumentary: reports: no symptoms reported Neurological: reports: no symptoms reported Psychiatric: reports: no symptoms reported Endocrine: reports: no symptoms reported Hematologic/Lymphatic: reports: no symptoms reported Allergic/Immunologic: reports: no symptoms reported Past History - Adult - PAST MEDICAL HISTORY-ADULT Review of Records: reports: Nursing Assessment Review, Medications Reviewed, Social history reviewed & non-contributory. Major Childhood Illnesses: reports: denies history Cardiovascular: reports: CHF, HTN Respiratory: reports: asthma Gastrointestinal: reports: denies history. denies: hepatitis Obstetrical/Gynecological: reports: denies history Genitourinary: reports: denies history Musculoskeletal: reports: denies history Neurological: reports: denies history Endocrine/Immune: reports: denies history Other Conditions: reports: denies history - PRIOR SURGERIES/PROCEDURES Surgical/Procedure History: reports: none - PRIOR HOSPITALIZATIONS Prior Hospitalizations: reports: none - IMMUNIZATION STATUS Childhood Immunizations: See Nurse Assessment Flu Vaccine: See Nurse Assessment - FAMILY HISTORY Family History: reviewed, not pertinent - SOCIAL HISTORY Smoking: cigarettes (but quit recently) Substance Use: none presently/history of abuse (cocaine but non in the past 8 months), marijuana Physical Exam-General - PHYSICAL EXAM-ADULT Initial Vital Signs Reviewed: Yes - CONSTITUTIONAL General Appearance: appears well, alert, no apparent distress - EYES Eyes: PERRL/EOMI - HEAD, EARS, NOSE, MOUTH & THROAT HENMT: normocephalic/atraumatic - NECK Neck: non-tender, full range of motion, supple - RESPIRATORY Respiratory: chest non-tender, wheezing (all over) - CARDIOVASCULAR Cardiovascular: no edema, no JVD, other (irregular pulse) - GASTROINTESTINAL (ABDOMEN) Abdominal Exam: non tender, soft - MUSCULOSKELETAL Back Exam: normal inspection Extremity: normal range of motion - SKIN Integumentary: normal color - NEUROLOGIC Neurologic: grossly normal - PSYCHIATRIC Psych/Mental Status: oriented x 3 Progress - PLAN OF CARE/RESULTS Progress/Plan/Lab Results: Vital Signs - 8 hr 07/11/19 10:14 Temperature 98.5 F Pulse Rate 83 Respiratory Rate 18 Blood Pressure 138/104 O2 Sat by Pulse Oximetry 95 Laboratory Results - last 24 hr 07/11/19 07/11/19 07/11/19 10:37 10:37 10:37 WBC 11.53 H RBC 4.21 L Hgb 13.1 L Hct 40.2 L MCV 95.5 MCH 31.1 H MCHC 32.6 L RDW Std Deviation 15.5 H Plt Count 247 MPV 10.3 Immature Gran % (Auto) 0.3 Neut % (Auto) 64.4 Lymph % (Auto) 25.3 [place]well % (Auto) 7.3 Eos % (Auto) 2.4 Baso % (Auto) 0.3 Immature Gran # (Auto) 0.03 Neut # (Auto) 7.43 H Lymph # (Auto) 2.92 [place]well # (Auto) 0.84 H Eos # (Auto) 0.28 Baso # (Auto) 0.03 PT 50.5 H INR 5.30 Sodium 143 Potassium 3.6 Chloride 103 Carbon Dioxide 27 Anion Gap 13 BUN 18 Creatinine 1.4 H Estimated GFR/1.73 m2 > 60 BUN/Creatinine Ratio 13 Glucose 105 H Calculated Osmolality 287 Calcium 8.7 L Total Bilirubin 0.97 AST 45 H ALT 51 H Alkaline Phosphatase 81 Creatine Kinase 171 Troponin T Vzr-E-Eldkdyqtsom Pept Total Protein 6.7 Albumin 4.0 Globulin 2.7 Albumin/Globulin Ratio 1.5 07/11/19 07/11/19 10:37 10:37 WBC RBC Hgb Hct MCV MCH MCHC RDW Std Deviation Plt Count MPV Immature Gran % (Auto) Neut % (Auto) Lymph % (Auto) [place] % (Auto) Eos % (Auto) Baso % (Auto) Immature Gran # (Auto) Neut # (Auto) Lymph # (Auto) [place]well # (Auto) Eos # (Auto) Baso # (Auto) PT INR Sodium Potassium Chloride Carbon Dioxide Anion Gap BUN Creatinine Estimated GFR/1.73 m2 BUN/Creatinine Ratio Glucose Calculated Osmolality Calcium Total Bilirubin AST ALT Alkaline Phosphatase Creatine Kinase Troponin T < 0.010 Amt-P-Hiwxbkgleaw Pept 17356 H Total Protein Albumin Globulin Albumin/Globulin Ratio Orders Category Date Time Status CTA [CT ANGIOGRM PULMONARY ARTERIES] [CT] Stat Exams 07/11/19 11:08 Completed CBC WITH DIFF [HEME] Stat Lab 07/11/19 10:37 Completed CK PROFILE [SP CHEM] Stat Lab 07/11/19 10:37 Completed COMPREHENSIVE METABOLIC PANEL [CHEM] Stat Lab 07/11/19 10:37 Completed PROTIME WITH INR [COAG] Stat Lab 07/11/19 10:37 Completed TROPONIN T Stat Lab 07/11/19 10:37 Completed TROPONIN T Stat Lab 07/11/19 15:11 Received pro-bnp [PRO B-NATRIURETIC PEPTIDE] Stat Lab 07/11/19 10:37 Completed Furosemide [Lasix] Med 07/11/19 11:07 Discontinued 40 mg IV NOW ONE Hydralazine [Apresoline] Med 07/11/19 14:47 Discontinued 20 mg IV NOW ONE EKG [EKG] Stat Ther 07/11/19 10:18 Draft Result Diagrams: 07/11/19 10:37 07/11/19 10:37 - REASSESSMENT Reassessment #1 Time Reassessed: 14:45 Status: improving (Patient reports improvement of sob. lung exam reveals scanty wheezing- much improved from previous. he wonders why he still having sob inspite of his comnpliance with med. BP remains elevated. Will treat with hydralazine and call for admission) - CT/MRI 1 CT Study: Thorax ( EXAM: CT ANGIOGRM PULMONARY ARTERIES INDICATION: sob, PE TECHNIQUE: This exam was performed using automated exposure control, adjustment of mA or kV according to patient size, and/or use of iterative reconstruction technique. Thin section axial images and 3-D MIPS were obtained. COMPARISON: 11/14/2016 FINDINGS: There is no evidence of pulmonary embolism. The aorta is not opacified but there is no evidence of thoracic aortic aneurysm. There is marked cardiomegaly that is essentially stable. There are a few calcified mediastinal lymph nodes on the left indicating prior granulomatous disease. There are other small shotty nonspecific mediastinal and hilar lymph nodes bilaterally that are similar to the previous study. There is stable fibrosis and/or chronic atelectasis at both lower lobes near the base as well as the right middle lobe. There is mild patchy groundglass opacity in the right lower lobe near the base suggesting mild edema or possibly developing pneumonia. There is trace pleural fluid at the right lung base. Limited views of the upper abdomen reveals reflux of contrast into the hepatic veins, which is a feature of heart failure. There is stable thickening of the left adrenal gland likely representing an underlying adenoma or hyperplasia. IMPRESSION: 1.Mild patchy groundglass opacity in the right lower lobe near the base suggesting edema versus developing pneumonia. 2.Stable patchy scarring at the lower lung zones bilaterally. 3.Trace right pleural effusion. 4.Stable marked cardiomegaly. 5.No evidence of pulmonary embolism. Electronically signed by Joseph Tirado 07/11/2019 12:46 PM) - CONSULTS/PCP/HOSPITALIST Notification #1 *Consult/PCP/Hospitalist*: Alice Time Discussed: 03:20 Consult Disposition: Admit (Discussed with wood pile driver operator Dr May, also discussed with Alice who will admit patient for Hospitalist.) Departure - Departure Date of Disposition Decision: 07/11/19 Time of Disposition Decision: 15:39 DIAGNOSIS: Supratherapeutic international normalized ratio (INR) CHF exacerbation Qualifiers: Heart failure type: unspecified Qualified Code(s): I50.9 - Heart failure, unspecified Hypertension Qualifiers: Hypertension type: unspecified Qualified Code(s): I10 - Essential (primary) hypertension Pneumonia Qualifiers: Pneumonia type: due to unspecified organism Laterality: right Lung location: lower lobe of lung Qualified Code(s): J18.1 - Lobar pneumonia, unspecified organism Disposition: ADMITTED INPATIENT 09 Certified Medical Emergency: Emergent Condition: Fair Referrals and Follow-Ups: None,PCP [Primary Care Provider] - - Critical Care Note This patient required my direct & personal management of CC.: No Attestation - Physician/ HOANG Attestation Patient care was provided by Advanced Practice Provider:: No The physician spent face to face time with patient:: Yes Advanced Practice Provider documentation review:: Supervising physician onsite and consulted in the evaluation and care of this patient. The physician did have a face to face encounter with the patient.
[2019-07-11] MEDS ORDERED: APRESOLINE IV ONE (14:47)
[2019-07-11] MEDS ORDERED: LEVAQUIN 500 MG/D5W 500 MG/100 ML IVPB IV ONE (16:18)
[2019-07-11] MEDS ORDERED: TYLENOL PO PRN (16:32)
[2019-07-11] MEDS ORDERED: ZOFRAN IV PRN (16:32)
--- NOTE | 2019-07-11 16:50 | EKG Report ---
Test Performed on : 07/11/2019 3:15:37 PM Test Reason : ED. No order in [place] Blood Pressure : / mmHG Vent. Rate : 094 BPM Atrial Rate : 094 BPM P-R Int : 180 ms QRS Dur : 108 ms QT Int : 416 ms P-R-T Axes : 058 -48 115 degrees QTc Int : 520 ms Normal sinus rhythm. Biatrial enlargement Left axis deviation Left ventricular hypertrophy with repolarization abnormality Prolonged QT Abnormal ECG When compared with ECG of 11-JUL-2019 10:22, (Unconfirmed) No significant change was found Unconfirmed Result
[2019-07-11 19:12] LABS: URINE SOURCE CLEAN CATCH
[2019-07-11 19:18] LABS: BILIRUBIN URINE NEGATIVE (NEGATIVE); BLOOD URINE NEGATIVE (NEGATIVE); COLOR YELLOW; GLUCOSE URINE NEGATIVE (NEGATIVE); KETONE URINE NEGATIVE (NEGATIVE); LEUKOCYTES URINE NEGATIVE (NEGATIVE); NITRITE URINE NEGATIVE (NEGATIVE); PH URINE 7.5; PROTEIN URINE TRACE mg/dL (NEGATIVE); SP GRAVITY URINE 1.019; TURBIDITY URINE CLEAR (CLEAR); UROBILINOGEN URINE NORMAL (NORMAL)
[2019-07-11 19:20] LABS: UR EPITHELIAL CELLS <10 /HPF (<10); URINE BACTERIA NEGATIVE /HPF; URINE RBC <10 /HPF (<10); URINE WBC <10 /HPF (<10)
--- NOTE | 2019-07-11 20:02 | HISTORY AND PHYSICAL ---
PRIMARY CARE PROVIDER: None. BOILER WATER TESTER: Chapo Ward MD CHIEF COMPLAINT: Shortness of breath. HISTORY OF PRESENT ILLNESS: Mr. Kyle Nieto is a 38-year-old male with a medical history of severe nonischemic cardiomyopathy. He is now here with complaints of shortness of breath and nhxey-[id number]-lhvgqxg systolic congestive heart failure. He has had worsening orthopnea and he states today he has had at least a 6-pound fluid weight gain since his discharge. He was most recently here the first week of June. He had his prescriptions filled by June 13, and apparently he states he ran out of his lisinopril and his Lasix yesterday, according to him, but he should have had a few more left. He states he may have possibly taken more of his Lasix than prescribed, because at first he thought he was supposed to take it twice a day. He has had decreased appetite because of the shortness of breath. He has felt like he has had restless legs syndrome as well. White count is 11,000. When discussing adding an antibiotic for possible underlying pneumonia, he described having swelling along the gums line in the right lower part of his jaw, with some mild swelling of a lymph node noted. It really just looks like it is more bruising or hematoma. He denies any fever with this. He does have a supratherapeutic INR over 5 since he has been placed on Coumadin for left ventricular thrombus. There is also a report of pulmonary emboli, but there is no imaging here that reports pulmonary emboli. His echocardiogram that was performed here in early June shows LV thrombus, for which he was initiated on Coumadin. He denies any other signs or symptoms of bleeding. We will admit him. He was supposed to have been fitted for a LifeVest today. It was scheduled for 8:00. He states he had car trouble and did not show up until 10 a.m., and so they rescheduled him for later this month. Since he has received Lasix, he states he already feels better and he is breathing better. PAST MEDICAL HISTORY: 1. Apparently he had ARDS secondary to either bronchitis or pneumonia. He said there was some sort of bacterial infection in the lungs that required him to have tracheostomy at the age of 21 at [facility]. The tracheostomy has been removed since then. 2. Severe nonischemic cardiomyopathy. 3. Chronic systolic congestive heart failure. 4. CVA with no residual. 5. Hypertension. 6. Anxiety with panic attacks. 7. Left ventricular thrombus. PAST SURGICAL HISTORY: Tracheostomy with reversal. SOCIAL HISTORY: Lives with 4 children and his significant other with whom he has had his children. He smokes maybe once every couple of months. He is a social smoker, occasionally marijuana. He has used cocaine, with the last being around a year ago, and denies alcohol. FAMILY HISTORY: Mother had a stroke at age 42. ALLERGIES: No known drug allergies. HOME MEDICATIONS: 1. Coumadin 10 mg p.o. nightly. 2. Coreg 12.5 mg p.o. twice daily. 3. Lasix 40 mg p.o. daily. 4. Lisinopril 10 mg p.o. daily. REVIEW OF SYSTEMS: Fourteen-point review of systems are complete and all were negative except for those mentioned in the above HPI. PHYSICAL EXAMINATION: VITAL SIGNS: Temperature 98.5 degrees, heart rate 89, respiratory rate 22, blood pressure 122/92, O2 saturation 97% on room air. GENERAL: Mr. Kyle Nieto is a 38-year-old male. He is in no acute distress. He is able to answer questions appropriately. HEENT: Atraumatic, normocephalic. Pupils equal, round and reactive to light. Extraocular movements intact. Mucous membranes are moist. Along the right lower part of his gumline there is swelling noted. No signs or symptoms of infection. NECK: Trachea midline. CARDIOVASCULAR: S1, S2. Regular rate and rhythm. No rubs, gallops or murmurs. Trace lower extremity edema. Dorsalis and radial pulses +2. Negative carotid bruits. Mild JVD. PULMONARY: He is now clear to auscultate. Bilateral breath sounds, tolerating room air. GASTROINTESTINAL: Soft, nontender, nondistended. Positive bowel sounds x4. NEUROLOGIC: Alert and oriented x3. Follows commands. Sensory is intact. SKIN: Warm, dry, intact. LABORATORY DATA: White blood cells 11,000, hemoglobin 13, hematocrit 40, platelet count 247,000. INR is 5.3. Sodium 143, potassium 3.6, BUN 18, creatinine 1.4, glucose 105, calcium 8.7, bilirubin 0.97, AST 45, ALT 51. CK 171, troponin less than 0.01 x 2. ProBNP 11,307. Albumin 4.0. DIAGNOSTIC DATA: Pulmonary arteriogram: Mild patchy ground-glass opacity in the right lower lobe near the base, suggesting edema versus developing pneumonia; stable patchy scarring at the lower lung zones bilaterally; trace right pleural effusion; stable marked cardiomegaly; no evidence of PE. EKG at 10:18 a.m.: Normal sinus rhythm, rate 80; QTc was 519. EKG at 3:15: Normal sinus rhythm, rate 94; QTc 520. ASSESSMENT AND PLAN: 1. Iopga-zo-sxbkndi systolic congestive heart failure with severe nonischemic cardiomyopathy, ejection fraction 10%. He was supposed to be fitted for a LifeVest today but missed his appointment. He also states he ran out of his Lasix, although he should have a few days left of it. Also states he is out of his lisinopril, even though he should still have a few days of that as well. Cardiology is aware that the patient is here. He is only going to be here for observation, so we will consult them if we need to. He has already received an intravenous dose of Lasix, which has relieved his symptoms of shortness of breath. We will continue intravenous Lasix 40 mg twice daily. Normally, he is on Coreg 12.5 mg p.o. twice daily since he is in acute exacerbation. We will decrease the dose to 6.25 mg p.o. twice daily for now. 2. Hypertension. Continue lisinopril and Coreg. 3. Leukocytosis, could be a possible right lower jaw tooth abscess or it could be a right lower lobe pneumonia that is trying to develop. He did receive a onetime dose of Levaquin, but since QTc is prolonged we will not continue that. He will actually get Augmentin 875 mg p.o. twice daily. 4. History of anxiety attacks and panic attacks. No current medications for that. 5. Left ventricular thrombus found earlier in June. He was started on Coumadin. He is now supratherapeutic, so we will hold tonight's dose. He was given 10 mg. We will decrease it to 5 mg nightly, starting tomorrow night. We will do daily INRs. 6. Deep venous thrombosis prophylaxis. He is currently supratherapeutic on Coumadin. Dictated by LILIANA Zarate for Renny Sanon MD cc: LILIANA Zarate Patient with mild volume overload. 6 lbs weight gain in the last few days associated with some dyspnea. already improving with lasix administered in the ED. minimal R base crackles. lungs otherwise CTAB. good O2 sats on room air. will diurese overnight but can likely be discharged in the morning. MTDD
[2019-07-11] MEDS: COREG PO SCH (22:15)
[2019-07-11] MEDS: LASIX IV SCH (22:16)
[2019-07-11] MEDS: AUGMENTIN PO SCH (23:21)
[2019-07-12 05:11] LABS: UR AMPHETAMINES QUAL NONE DETECTED (NONE DETECT); UR BARBITUATES QUAL NONE DETECTED (NONE DETECT); UR BENZODIAZEPIN QUAL NONE DETECTED (NONE DETECT); UR CANNABINOIDS QUAL NONE DETECTED (NONE DETECT); UR COCAINE QUAL NONE DETECTED (NONE DETECT); UR METHADONE QUAL NONE DETECTED (NONE DETECT); UR OPIATES QUAL NONE DETECTED (NONE DETECT); UR OXYCODONE QUAL NONE DETECTED (NONE DETECT); UR PCP QUAL NONE DETECTED (NONE DETECT)
--- NOTE | 2019-07-12 07:04 | EKG Report ---
Test Performed on : 07/12/2019 06:40:58 AM Test Reason : chest pain Blood Pressure : / mmHG Vent. Rate : 072 BPM Atrial Rate : 072 BPM P-R Int : 196 ms QRS Dur : 108 ms QT Int : 476 ms P-R-T Axes : 062 -54 093 degrees QTc Int : 521 ms Normal sinus rhythm. Biatrial enlargement Left axis deviation Pulmonary disease pattern Left ventricular hypertrophy Nonspecific ST and T wave abnormality Prolonged QT Abnormal ECG When compared with ECG of 11-JUL-2019 15:15, (Unconfirmed) T wave inversion less evident in Lateral leads Unconfirmed Result
[2019-07-12 07:15] LABS: BASO# 0.05 X1000 (0.0-0.2); BASO% 0.5 % (0.0-0.8); EOS# 0.54 X1000 (0.0-0.7); EOS% 5.4 % (0.0-10.0); HEMATOCRIT 42.1 % (42.0-52.0); HEMOGLOBIN 14.2 g/dL (14.0-18.0); IMM GRAN# 0.02 X1000 (0.0-0.04); IMM GRAN% 0.2 % (0.0-0.5); LYMPH# 3.01 X1000 (1.2-3.4); LYMPH% 30.4 % (20.5-51.1); MCH 31.3 PG (27-31); MCHC 33.7 g/dL (33-37); MCV 92.7 FL (81-99); MONO# 0.84 X1000 (0.11-0.59); MONO% 8.5 % (1.7-9.3); NEUT# 5.45 X1000 (1.4-6.5); PLT 285 X1000 (130-400); RBC 4.54 XMIL (4.7-6.1); RDW 15.2 % (11.5-14.5); WBC 9.91 X1000 (4.8-10.8)
[2019-07-12 07:25] LABS: INR 4.09
[2019-07-12 07:26] LABS: PTT 60.4 Seconds (22.3-41.8)
[2019-07-12 07:48] LABS: AGAP 13; ALB/GLOB RATIO 1.2; ALBUMIN 3.9 g/dL (3.5-5.0); ALKALINE PHOSPHATASE 80 U/L (32-122); BUN 15 mg/dL (8-22); CALCIUM 9.3 mg/dL (8.8-10.2); CHLORIDE 100 mmol/L (98-107); COSMO 284; CREATININE 1.2 mg/dL (0.7-1.2); ESTIMATED GFR > 60; GLUCOSE 104 mg/dL (70-104); GOT 35 U/L (10-34); GPT 49 U/L (10-44); MAGNESIUM 1.9 mg/dL (1.5-2.7); SODIUM 142 mmol/L (136-145); TCO2 29 mmol/L (25-35); TOTAL BILIRUBIN 1.03 mg/dL (0.20-1.00); TOTAL PROTEIN 7.2 g/dL (6.3-8.3)
[2019-07-12] MEDS ORDERED: PRINIVIL PO SCH (09:00)
--- NOTE | 2019-07-12 09:17 | Diag Imaging Result Doc PS360 ---
CHEST-2 VIEWS - 07/12/2019 INDICATION: sob COMPARISON: 07/08/2019 FINDINGS: Stable significant cardiomegaly and pulmonary vascular congestion. Stable trace nonspecific atelectasis or edema at the lower lobes bilaterally. IMPRESSION: No change from prior. Electronically signed by Kaushik Mcelroy 07/12/2019 9:14 AM
[2019-07-12] MEDS: AUGMENTIN PO SCH (09:48)
[2019-07-12] MEDS: COREG PO SCH (09:48)
[2019-07-12] MEDS: LASIX IV SCH (09:49)
[2019-07-12 11:51] VITALS: BP 133/114
[2019-07-12] MEDS ORDERED: FLU VACCINE IM ONE (12:36)
[2019-07-12] MEDS ORDERED: COUMADIN PO SCH (21:00)
[2019-07-13] MEDS ORDERED: KLOR-CON PO ONE (10:21)
== END 2019-07-12 13:59 | disposition home or self-care (01) | DRG 292 ==
LOC: ED 10:10 → EDIPHOLD 16:38 → 4N 18:18
PROVIDERS: ATTEND Internal Medicine

== ENCOUNTER 2019-09-01 10:32 | Inpatient (IN) ==
--- NOTE | 2019-09-01 11:03 | PROVIDER DOCUMENTATION ---
HPI-General Adult - General Chief Complaint: Unresponsive Stated Complaint: FOUND UNRESPONSIVE Time Seen by Provider: 09/01/19 10:50 Source: EMS Allergies/Adverse Reactions: Patient Allergies Allergy/AdvReac Type Severity Reaction Status Date / Time No Known Allergies Allergy Verified 08/18/19 21:01 Home Medications: Home Medication List Medication Instructions Recorded Confirmed Last Taken Type Warfarin Sodium [Coumadin] 7.5 mg PO QHS #30 tab 07/12/19 08/23/19 Unknown Rx Furosemide [Lasix] 40 mg PO DAILY #30 tab 08/18/19 08/23/19 Unknown Rx Carvedilol [Coreg] 3.125 mg PO BID 08/23/19 08/23/19 Unknown History Sacubitril/Valsartan [Entresto 24 1 ea PO BID 08/23/19 08/23/19 Unknown History mg-26 mg Tablet] - History of Present Illness -Gen Adult Nature of Presenting Problems: Patient was brought by EMS today that responded to call by his that patient was unresponsive. Per ems, patient came home, went to bed and slumped out of bed this morning. He received a dose of narcan by ems and patient was able to open his eyes, minimally obeying commands but no verbal response. EMS gives a h/o HTN, CHF and drug abuse Review of Systems - Adult - REVIEW OF SYSTEMS - ADULT ROS:: unobtainable per condition Constitutional: reports: no symptoms reported Eyes: reports: no symptoms reported Ears, Nose, Mouth & Throat: reports: no symptoms reported Cardiovascular: reports: no symptoms reported Respiratory: reports: no symptoms reported Gastrointestinal: reports: no symptoms reported Genitourinary: reports: no symptoms reported Musculoskeletal: reports: no symptoms reported Integumentary: reports: no symptoms reported Neurological: reports: see HPI, loss of balance, other. denies: ataxia, dizziness/vertigo, headache/migraines, numbness, paresthesia, seizure, slurred speech, syncope Psychiatric: reports: see HPI, alcohol/drug dependence, emotional problems Endocrine: reports: no symptoms reported Allergic/Immunologic: reports: no symptoms reported All Other Systems: Reviewed and Negative Past History - Adult - PAST MEDICAL HISTORY-ADULT Review of Records: reports: Old Records Reviewed, Nursing Assessment Review, Medications Reviewed, Social history reviewed & non-contributory. Major Childhood Illnesses: reports: denies history Cardiovascular: reports: cardiac disease, CAD, CHF, PVD Respiratory: reports: denies history Gastrointestinal: reports: denies history Obstetrical/Gynecological: reports: denies history Genitourinary: reports: denies history Musculoskeletal: reports: denies history Neurological: reports: CVA Endocrine/Immune: reports: denies history Other Conditions: reports: denies history - PRIOR SURGERIES/PROCEDURES Surgical/Procedure History: reports: reviewed, not pertinent - IMMUNIZATION STATUS Childhood Immunizations: UTD - FAMILY HISTORY Family History: reviewed, not pertinent - SOCIAL HISTORY Smoking: cigarettes, greater than 1 pack/day Provider spent 3-5 mins advising pt. on dangers of tobacco.: Discussed manners to quit use, and f/u contacts for add'l counseling. Substance Use: none presently/history of abuse, marijuana, amphetamines, cocaine Alcohol Use Frequency: occasionally Living Situation: family Physical Exam-General - PHYSICAL EXAM-ADULT Initial Vital Signs Reviewed: Yes - CONSTITUTIONAL General Appearance: lethargic (and non verbal, responds minimally to commands), slow to respond - EYES Eyes: PERRL/EOMI, pink conjunctivae - HEAD, EARS, NOSE, MOUTH & THROAT HENMT: normocephalic/atraumatic - NECK Neck: non-tender (no grimacing) - RESPIRATORY Respiratory: chest non-tender, lungs clear, normal breath sounds - CARDIOVASCULAR Cardiovascular: regular rate, rhythm - GASTROINTESTINAL (ABDOMEN) Abdominal Exam: non tender, soft - MUSCULOSKELETAL Back Exam: normal inspection Extremity: non-tender, normal capillary refill - SKIN Integumentary: diaphoresis (and cold) - NEUROLOGIC Neurologic: experience specialist II-XII nml as tested, aphasia, other (altered). negative: grossly normal, no motor/sensory deficits - PSYCHIATRIC Psych/Mental Status: disoriented x 3, other (altered). negative: normal mood/affect, normal thought content, normal thought process, oriented x 3 Progress - PLAN OF CARE/RESULTS Progress/Plan/Lab Results: Vital Signs - 8 hr 09/01/19 10:41 09/01/19 10:54 Temperature 98.5 F Pulse Rate 86 Respiratory Rate 25 H Blood Pressure 142/109 O2 Sat by Pulse Oximetry 94 L Laboratory Results - last 24 hr 09/01/19 10:48 POC Glucose 125 H Orders Category Date Time Status Cardiac Monitoring DIRECTED Care 09/01/19 10:55 Ordered Finger Stick Blood Sugar (ED) DIRECTED Care 09/01/19 10:55 Ordered Saline Loc NOW Care 09/01/19 10:55 Ordered CHEST-PORTABLE [RAD] Stat Exams 09/01/19 10:[address] HEAD W/O CONTRAST [CT] Stat Exams 09/01/19 10:55 Ordered CBC WITH ELECTRONIC DIFF [HEME] Stat Lab 09/01/19 10:55 Uncollected CK PROFILE [SP CHEM] Stat Lab 09/01/19 10:55 Uncollected COMPREHENSIVE METABOLIC PANEL [CHEM] Stat Lab 09/01/19 10:55 Uncollected LACTATE, PLASMA [CHEM] Stat Lab 09/01/19 10:57 Uncollected PRO B-NATRIURETIC PEPTIDE Stat Lab 09/01/19 10:58 Ordered PROTIME WITH INR [COAG] Stat Lab 09/01/19 10:55 Uncollected PTT [COAG] Stat Lab 09/01/19 10:55 Uncollected TROPONIN T Stat Lab 09/01/19 10:55 Uncollected URINALYSIS W/POSS RFLX CULT [URINALYSIS] Stat Lab 09/01/19 10:55 Uncollected URINE DRUG SCREEN Stat Lab 09/01/19 10:55 Uncollected EKG [EKG] Stat Ther 09/01/19 10:55 Ordered Result Diagrams: 09/03/19 05:45 09/03/19 05:45 - REASSESSMENT Reassessment #1 Time Reassessed: 13:44 Status: unchanged (seen and examined by me. Case discussed with Dr. Yu on shift change. It is unclear why patient has AMS at this time, awaiting CT scan. Will need admission. ?hypertensive encephalopathy vs substance abuse. Will give IV lasix and labetalol, pr ASA as troponin is elevated.) Reassessment #2 Time Reassessed: 14:44 Status: unchanged - EKG 1 Time of EKG reading by physician:: 10:55 EKG Read and Signed by:: Edilson Yu EKG Interpretation (*Must complete 3 of following elements*): Abnormal Rate: 83 Rhythm: sinus [place]: normal QRS: normal Comments: prolonged QTC - XRAY 1 XRAY Study: Chest Impression: See EMR Report (marked cardiomegally) - CT/MRI 1 CT Study: Head Impression: Abnormal, See EMR Report ( CT HEAD W/O CONTRAST - 09/01/2019 INDICATION: stroke like symptoms COMPARISON: 04/23/2016 FINDINGS: There is a rather large area of old encephalomalacia at the posterior left cerebral hemisphere from a prior left posterior cerebral artery territory stroke. There is also an old stroke in the posterior right parietal lobe. There is a small lacunar infarct in the head of the right caudate which was not present previously. This is age-indeterminate. No intracranial mass or hemorrhage. The skull is intact. The sinuses are clear. IMPRESSION: There is an age- indeterminate lacunar infarction in the right caudate head that was not present previously. Otherwise no change from prior. This exam was performed using automated exposure control, adjustment of mA or kV according to patient size, an d/or use of iterative reconstruction technique Electronically signed by Kaushik Mcelroy 09/01/2019 2:19 PM 09/01/19 1419 Interpreting Physician: Kaushik Mcelroy MD Dictated Date/Time: 09/01/19 1411 cc: Edilson Yu MD; None,PCP) - CONSULTS/PCP/HOSPITALIST Notification #1 *Consult/PCP/Hospitalist*: Lalo Reason/Comments: consulted by Aimee around 1300, reportedly had normal Coronaries on cath Consult Disposition: Admit (can follow as consult) #2 Consult: slaten Time Discussed: 14:45 Consult Disposition: Will see in ED, Admit - CHANGE OF SHIFT REPORT (ED Provider) 1 Report Given and Care Transferred to:: Dr Paul as I was leaving for [place] Time of Transfer: 13:00 Departure - Departure Date of Disposition Decision: 09/01/19 Time of Disposition Decision: 14:29 DIAGNOSIS: Hypertensive encephalopathy syndrome, Marijuana abuse, Elevated troponin I measurement Altered mental status, unspecified Qualifiers: Altered mental status type: stupor Qualified Code(s): R40.1 - Stupor CVA (cerebral vascular accident) Qualifiers: CVA mechanism: thrombosis Precerebral and cerebral artery: anterior cerebral artery Laterality of affected vessel: right Qualified Code(s): I63.321 - Cerebral infarction due to thrombosis of right anterior cerebral artery Disposition: ADMITTED INPATIENT 09 Certified Medical Emergency: Emergent Condition: Serious - Critical Care Note This patient required my direct & personal management of CC.: Yes Total Time (mins): 45 Critical Care Statement: This patient required my direct personal management to treat or rule out processes, the absence of which, could potentiallly result in sudden, clinically significant life or limb threatening deterioration. Attestation - Physician/ HOANG Attestation Patient care was provided by Advanced Practice Provider:: No The physician spent face to face time with patient:: Yes Advanced Practice Provider documentation review:: Supervising physician onsite and consulted in the evaluation and care of this patient. The physician did have a face to face encounter with the patient. Stroke tPA Guidelines - Inclusion Criteria for IV tPA 18 years old or older: Yes Ischemic stroke with measurable deficit: No Onset <3 hours ago *OR* 3-4.5 hours ago: Unable to Obtain - Exclusion Criteria for IV tPA Evidence of intracranial hemorrhage on CT: No Presentation suggest SAH: No CT reveals defined area of hypodensity: Yes Evidence of AVM, neoplasm, aneurysm: No Seizure at stroke onset: No Active internal bleeding or acute trauma: No Platelet Count Less Than 100,000: No Heparin Within Last 48 HRS (PTT >Lab normal limits): No INR > 1.7 (warfarin use): No Use IIB/IIIA inhibitors within 24 hours: No Serious Head Trauma Within Last 3 Months: No Arterial Puncture Within Last 7 Days: No Lumbar Puncture Within Last 7 Days: No Repeated systolic Blood Pressure >185 or Diastolic >110: No - Additional Exclusion Criteria for IV tPA Currently on Coumadin: No Patient older than 80: No Prior stroke and diabetes: No Baseline NIHSS score > 25: No - Relative Contraindications to IV tPA CT reveals extensive area of infarct (>1/3 MCA territory): No Minor or rapidly improving stroke symptoms: No Major Surgery or Serious Trauma In Previous 14 Days: No AMI within 3 months: No Gastrointestinal or Urinary Tract hemorrhage in Past 21 Days: No Post - AMI pericarditis: No Blood Glucose Less Than 50 mg/dl or Greater Than 400 mg/dl: No - Consultation Candidate for:: NOT A CANDIDATE - NIH Stroke Scale NIH Type: Initial Evaluation Level of Consciousness: 1-Drowsy, but arousable with minimal stimulation LOC Questions (ask month and age): 2-Both Incorrect LOC Commands (ask to open & close eyes;make a fist, let go): 2-Both Incorrect Best Gaze (horizontal eye movement): 0-Normal Visual (use finger movement, counting or visual threat): 0-No Visual Loss Facial Palsy (show teeth or raise eyebrows & close eyes tght: 0-Symmetrical Movement Motor Function-left arm: 2-Some Effort Against [place] Motor Function-right arm: 2-Some Effort Against [place] Motor Function-left le-Some Effort Against [place] Motor Function-right le-Some Effort Against [place] Limb Ataxia(excxrh-vzza-[id number], or heel to patel): 0-No Ataxia Sensory(pin prick to face,arms,trunk,legs-compare side/side): 0-No Ataxia Best Language(name item/read sentence.Ex-Down to Earth): 3-Mute Dysarthria(Pt read words or say words Ex.Mama,Tip-Top,Thanks: 3-Intubated or Other Extinction and Inattention: 0-Normal Modified [place] Score Criteria: 5-severe disability
[2019-09-01 11:17] LABS: BASO# 0.09 X1000 (0.0-0.2); BASO% 0.9 % (0.0-0.8); EOS# 0.56 X1000 (0.0-0.7); EOS% 5.8 % (0.0-10.0); HEMATOCRIT 48.6 % (42.0-52.0); LYMPH# 3.84 X1000 (1.2-3.4); LYMPH% 39.6 % (20.5-51.1); MCHC 32.9 g/dL (33-37); MONO# 1.18 X1000 (0.11-0.59); MONO% 12.2 % (1.7-9.3); MPV 10.7 FL (7.4-10.4); NEUT# 4.02 X1000 (1.4-6.5); NEUT% 41.5 % (42.2-75.2); PLT 323 X1000 (130-400); RBC 5.34 XMIL (4.7-6.1); RDW 14.7 % (11.5-14.5); WBC 9.69 X1000 (4.8-10.8)
--- NOTE | 2019-09-01 11:32 | Diag Imaging Result Doc PS360 ---
EXAM: CHEST-PORTABLE HISTORY: unresponsive TECHNIQUE: Single view COMPARISON: None. FINDINGS: The lungs are well expanded. The heart is enlarged. The vessels are not distended. There are no infiltrates. No effusion identified. IMPRESSION: Marked cardiomegaly Electronically signed by Reynold Holley 09/01/2019 11:30 AM
[2019-09-01 11:37] LABS: URINE SOURCE CATH
[2019-09-01 11:41] LABS: BILIRUBIN URINE NEGATIVE (NEGATIVE); BLOOD URINE NEGATIVE (NEGATIVE); COLOR YELLOW; GLUCOSE URINE NEGATIVE (NEGATIVE); KETONE URINE NEGATIVE (NEGATIVE); LEUKOCYTES URINE NEGATIVE (NEGATIVE); NITRITE URINE NEGATIVE (NEGATIVE); PH URINE 7.5; PROTEIN URINE 300 mg/dL (NEGATIVE); SP GRAVITY URINE 1.014; TURBIDITY URINE CLEAR (CLEAR); UROBILINOGEN URINE 2 mg/dL (NORMAL)
[2019-09-01 11:42] LABS: UR EPITHELIAL CELLS <10 /HPF (<10); URINE BACTERIA NEGATIVE /HPF; URINE RBC <10 /HPF (<10); URINE WBC <10 /HPF (<10)
--- NOTE | 2019-09-01 11:51 | EKG Report ---
Test Performed on : 09/01/2019 10:49:51 AM Test Reason : unresponsive Blood Pressure : / mmHG Vent. Rate : 083 BPM Atrial Rate : 083 BPM P-R Int : 186 ms QRS Dur : 112 ms QT Int : 440 ms P-R-T Axes : 064 -51 099 degrees QTc Int : 517 ms Sinus rhythm. with fusion complexes Biatrial enlargement Left axis deviation Pulmonary disease pattern Left ventricular hypertrophy with repolarization abnormality Prolonged QT Abnormal ECG No previous ECGs available Unconfirmed Result
[2019-09-01 11:53] LABS: UR AMPHETAMINES QUAL NONE DETECTED (NONE DETECT); UR BARBITUATES QUAL NONE DETECTED (NONE DETECT); UR BENZODIAZEPIN QUAL NONE DETECTED (NONE DETECT); UR CANNABINOIDS QUAL PRESUMPTIVE POSITIVE (NONE DETECT); UR COCAINE QUAL NONE DETECTED (NONE DETECT); UR METHADONE QUAL NONE DETECTED (NONE DETECT); UR OPIATES QUAL NONE DETECTED (NONE DETECT); UR OXYCODONE QUAL NONE DETECTED (NONE DETECT); UR PCP QUAL NONE DETECTED (NONE DETECT)
[2019-09-01 12:01] LABS: INR 1.11; PROTIME 14.5 Seconds (11.0-16.0); PTT 24.4 Seconds (22.3-41.8)
[2019-09-01 12:09] LABS: ALB/GLOB RATIO 1.1; ALBUMIN 3.4 g/dL (3.5-5.0); CREATININE 1.2 mg/dL (0.7-1.2); POTASSIUM 3.3 mmol/L (3.5-5.1); TOTAL BILIRUBIN 0.9 mg/dL (0.20-1.00); TOTAL PROTEIN 6.4 g/dL (6.3-8.3)
--- NOTE | 2019-09-01 13:19 | EKG Report ---
Test Performed on : 09/01/2019 12:31:03 PM Test Reason : REPEAT Blood Pressure : / mmHG Vent. Rate : 084 BPM Atrial Rate : 084 BPM P-R Int : 188 ms QRS Dur : 112 ms QT Int : 444 ms P-R-T Axes : 060 -50 106 degrees QTc Int : 524 ms Normal sinus rhythm. Biatrial enlargement Left axis deviation Pulmonary disease pattern Left ventricular hypertrophy with repolarization abnormality Inferior infarct (cited on or before 18-AUG-2019) Prolonged QT Abnormal ECG When compared with ECG of 23-AUG-2019 13:28, (Unconfirmed) No significant change was found Unconfirmed Result
[2019-09-01] MEDS: LABETALOL IV ONE ×2 (13:43→15:12)
[2019-09-01] MEDS ORDERED: NS 1,000 ML IV ONE (13:44)
[2019-09-01] MEDS ORDERED: ASPIRIN PR ONE (13:55)
[2019-09-01 14:04] LABS: ALLEN TEST YES; BE 1.9 mmoll (-3.0-3.0); BLOOD TYPE ARTERIAL; HCO3-(ACT) 26.3 mmoll (20.0-26.0); METHB 0.7 % (0.0-1.5); O2(CT) 23.2 mL/dL (15.0-23.0); O2HB 95.3 % (95.0-99.0); PCO2(98.6) 37 mmHg (35-45); PO2(98.6) 84 mmHg (60-100); SAMPLE BLOOD; THB 17.3 g/dL (11.5-17.4); pH(98.6) 7.45 (7.35-7.45)
[2019-09-01 14:05] LABS: MODALITY ROOM AIR
--- NOTE | 2019-09-01 14:21 | Diag Imaging Result Doc PS360 ---
CT HEAD W/O CONTRAST - 09/01/2019 INDICATION: stroke like symptoms COMPARISON: 04/23/2016 FINDINGS: There is a rather large area of old encephalomalacia at the posterior left cerebral hemisphere from a prior left posterior cerebral artery territory stroke. There is also an old stroke in the posterior right parietal lobe. There is a small lacunar infarct in the head of the right caudate which was not present previously. This is age-indeterminate. No intracranial mass or hemorrhage. The skull is intact. The sinuses are clear. IMPRESSION: There is an age-indeterminate lacunar infarction in the right caudate head that was not present previously. Otherwise no change from prior. This exam was performed using automated exposure control, adjustment of mA or kV according to patient size, and/or use of iterative reconstruction technique Electronically signed by Kaushik Mcelroy 09/01/2019 2:19 PM
[2019-09-01] MEDS: LASIX IV ONE ×2 (15:04→15:07)
[2019-09-01] MEDS ORDERED: ZOFRAN IV PRN (16:16)
[2019-09-01] MEDS ORDERED: ATIVAN IV ONE (16:41)
[2019-09-01] MEDS ORDERED: LABETALOL IV PRN (16:43)
[2019-09-01] MEDS ORDERED: ATIVAN IV PRN (16:44)
[2019-09-01] MEDS ORDERED: NS 1,000 ML IV SCH (16:45)
[2019-09-01] MEDS ORDERED: MORPHINE IV PRN (16:46)
[2019-09-01] MEDS: FOLIC ACID 1 MG in NS 50 ML IV SCH (16:47)
[2019-09-01] MEDS: THIAMINE IM SCH (17:10)
--- NOTE | 2019-09-01 17:32 | HISTORY AND PHYSICAL ---
ADDENDUM: I have seen and examined Mr. Nieto today in the emergency room. was at the bedside at the time of the encounter. Mr. Nieto himself is remarkably obtunded and he is not able to give me any history. According to the , Mr. Nieto is known to have congestive heart failure, severe dilated nonischemic cardiomyopathy with a known ejection fraction of 10% on a recent echocardiogram in May of this year, who is supposed to be following up with Dr. Ward. Unfortunately, he does not seem to be keeping up with his appointment nor very compliant with medications. I understand Mr. nieto was at home until the day before Chris Merna, and he disappeared. The thinks he might have gone to the house of the [facility]. He did not take his medications with him. He was lost for about 3 days, came home this morning at about 3:00 in the morning. According to the , Mr. Nieto spoke to her and then he went to sleep. At about 10:00 this morning, Mr. Nieto woke up, and when he got up, he just fell down on the floor and he became unresponsive. According to the , she noted that he was still breathing, but he was just not talking. EMS was called. Per documentation from the ER note, it appears that EMS gave him a dose of Narcan and patient was able to open his eyes, minimally obeying commands, but no verbal response. The patient was brought to the emergency room, where he was evaluated. His initial vitals revealed a blood pressure of 142/109, pulse of 89, respiration was 25. The patient's O2 saturation was 94. He was evaluated. A chest x-ray did show marked cardiomegaly, but no distended vessels or any infiltrates. He had a CT scan of his head, which showed an old encephalomalacia in the left posterior cerebral artery territory. There is also an age- indeterminate lacunar infarct in the right caudate head that was not present in the previous CT scan in April 2016. Currently, he continues to be nonverbal. He seems to be barely responding to some verbal commands, but for the most part, he is not cooperative. He keeps moving all his lower extremities constantly. According to the , he has restless leg syndrome. His urine toxicology did show positive presumed cannabinoids. Alcohol was none. Rest of urine drug screen was unremarkable. LABORATORY DATA: Also been reviewed. ASSESSMENT/PLAN: 1. Altered mental status with no focalization. Presumably related to recreational drug use, however, we are uncertain. The patient's urine toxicology was positive for cannabinoids. It is stated that he responded minimally to Narcan. Mr. Nieto is going to be admitted to the ICU for close neurological observation. We will get hopefully an MRI of the brain when he is more stable and we will get an EEG whenever possible to rule out seizures if he continues to be unresponsive. 2. 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 We will follow this up with an MRI if possible. 3. History of severe dilated nonischemic cardiomyopathy with ejection fraction of 10% noted. At this point, Mr. Nieto is not showing any signs of congestive heart failure. We will continue to control his blood pressure. 4. Severe uncontrolled hypertension. Unsure if this is related to any drugs or if it is from his previous history of hypertension that is not being controlled because of noncompliance. We are going to start Mr. Nieto on p.r.n. labetalol, but we will also put him on Ativan. If it is drug related, then that will help even better. We will restart him on his home medications once his mentation gets clear. We will also we are going to put Mr. Nieto on a very low dose, 20 mL of normal saline overnight, and pay critical attention to his volume status. 5. Troponin elevation presumably from demand mismatch. We are going to continue to trend this and Cardiology will be consulted if it continues to be elevated. In general, Mr. Nieto is extremely critical. He is very altered. I think it is all related to some form of recreational drug use. However, a genuine underlying neurological event cannot be completely ruled out. His initial CT scan does show an age-indeterminate lacunar infarct in the right caudate head and an old left PUBLIC ADDRESS SYSTEM INSTALLER territory encephalomalacia. If he continues to be altered tomorrow, we will pursue an MRI and we will also pursue an EEG. For now, slow gentle hydration overnight and neurological observation in the ICU. Please refer to the details of the history and physical that has been dictated by the AQUACULTURAL WORKER SUPERVISOR. I have discussed the plan with her and I have also discussed the plan with the who was at the bedside at the time of the encounter. CRITICAL TIME SPENT: One hour. cc: Estuardo Domínguez MD
[2019-09-01] MEDS ORDERED: MORPHINE IV ONE (18:14)
[2019-09-01 19:26] LABS: CK INDEX 1.3 (0.0-2.5); CK-MB 2.81 ng/mL (0.0-5.0)
--- NOTE | 2019-09-01 20:14 | HISTORY AND PHYSICAL ---
CHIEF COMPLAINT: Unresponsive. HISTORY OF PRESENT ILLNESS: This is a 38-year-old gentleman with a prior history of chronic systolic failure with ejection fraction of 10%, hypertension, and a left ventricular thrombus per echocardiogram of 06/05/2019. He presented to the emergency room via EMS after being found by his unresponsive. The patient is obtunded. At the time of my exam, he does have a significant other at the bedside with whom he lives. The significant other states that the patient "disappeared for 3 days and returned at 3:00 this morning and went straight to bed". She stated at about 10:00 this morning, he woke up and fell on the floor and became unresponsive. 911 was called. According to the emergency room chart, EMS gave Narcan. The patient opened his eyes, minimally obeyed commands, gave no verbal response. On arrival to the emergency room, he was nonverbal. He has constantly moved his lower extremities, which his states is normal for him, having restless leg syndrome. He does withdraw from pain. CT scan of the head revealed old encephalomalacia in the left posterior cerebral artery territory, with an age-indeterminate lacunar infarct in the right caudate head that was not present on the scan in April 2016. PAST MEDICAL HISTORY: Taken from prior admissions: 1. Severe nonischemic cardiomyopathy, with an ejection fraction of 10%. 2. Chronic systolic congestive heart failure. 3. CVA with no residual. 4. Hypertension. 5. Left ventricular thrombus. 6. History of ARDS secondary to bronchitis or pneumonia at the age of 21, that required him have a tracheostomy. That has since been removed. SURGICAL HISTORY: Tracheostomy with reversal. SOCIAL HISTORY: He has 4 children with a significant other with whom he lives. He smokes cigarettes. He does smoke marijuana. He drinks alcohol. The significant other is not forthcoming regarding any illicit drug use. ALLERGIES: No known drug allergies documented in the chart. HOME MEDICATIONS: Per the significant other, home medications list will be obtained per the nursing staff. REVIEW OF SYSTEMS: Unable to obtain from the patient. PHYSICAL EXAMINATION: GENERAL: This is a 38-year-old gentleman who is lying on the stretcher in the emergency room, obtunded, with constant movement of his lower extremities, who does withdraw from pain, but does not follow commands. VITAL SIGNS: Blood pressure is 136/76 with a heart rate of 92, respirations are 22, temperature is 98.5 degrees, with O2 saturations 94 to 96 percent. HEENT: Head is normocephalic, atraumatic. Mucous membranes are moist. Pupils are equal, round, and react to light. Sclerae are anicteric. NECK: Supple with trachea midline. CARDIOVASCULAR: Regular rate and rhythm. S1 and S2 are appreciated. He has no lower extremity edema. Peripheral pulses are palpable x4 extremities. PULMONARY: Breath sounds are clear with no increased work of breathing noted. Chest rises and falls symmetrically with respiration. GASTROINTESTINAL: Abdomen is soft, nondistended, with bowel sounds in all 4 quadrants. SKIN: Warm and dry. NEUROLOGIC: He moves extremities at random. He does withdraw from pain. He does not follow commands and he has been nonverbal since arrival to the emergency room. LABORATORY DATA: WBC is 9.6 with hemoglobin 16, hematocrit 48.6, and platelets of 323,000. INR is 1.11. Sodium 140, potassium 3.3, BUN 14, creatinine 1.2, with a glucose of 148. Troponin is 0.119 with a proBNP of 8939. Urinalysis is essentially negative. Urine drug screen is presumptive positive for cannabinoids. CT of the head revealed an age indeterminate lacunar infarct in the right caudate head that was not present on April 2016 scan. Chest x-ray revealed marked cardiomegaly with no infiltrates and no effusion identified. EKG revealed sinus rhythm at a rate of 84. ASSESSMENT AND PLAN: 1. Altered mental status. This is presumably related to recreational drug use, although we are uncertain. He was minimally responsive to Narcan. We will admit him to the intensive care unit for close observation, with neurologic checks every 4 hours. Once he is stable enough, we will get MRI of the brain. 2. 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 We will follow up with MRI and neurologic checks. 3. History of severe dilated nonischemic cardiomyopathy with ejection fraction of 10%, in a patient who is noncompliant with medications. We will monitor vital signs, inputs, outputs. 4. Severe uncontrolled hypertension. We will use labetalol p.r.n. with Ativan p.r.n. 5. Elevated troponin. This is presumably from a demand mismatch. We will continue to trend troponin and cardiac enzymes and consult Cardiology if the enzymes continue to be elevated. 6. Left ventricular thrombus. Aware. 7. The patient was examined and plan was discussed with Dr. Domínguez. Further treatments pending hospital course. Dictated by LILIANA Kenny for Estuardo Domínguez MD cc: LILIANA Kenny MD
[2019-09-01 22:08] LABS: URINE SOURCE CATH
[2019-09-01 22:29] LABS: BILIRUBIN URINE NEGATIVE (NEGATIVE); BLOOD URINE TRACE (NEGATIVE); COLOR YELLOW; GLUCOSE URINE NEGATIVE (NEGATIVE); KETONE URINE NEGATIVE (NEGATIVE); LEUKOCYTES URINE NEGATIVE (NEGATIVE); NITRITE URINE NEGATIVE (NEGATIVE); PROTEIN URINE 200 mg/dL (NEGATIVE); SP GRAVITY URINE 1.012; TURBIDITY URINE CLEAR (CLEAR); UROBILINOGEN URINE NORMAL (NORMAL)
[2019-09-01 22:30] LABS: UR EPITHELIAL CELLS <10 /HPF (<10); URINE BACTERIA NEGATIVE /HPF; URINE RBC <10 /HPF (<10); URINE WBC <10 /HPF (<10)
[2019-09-02 06:49] LABS: BASO# 0.06 X1000 (0.0-0.2); BASO% 0.5 % (0.0-0.8); EOS# 0.24 X1000 (0.0-0.7); EOS% 1.8 % (0.0-10.0); HEMATOCRIT 54.8 % (42.0-52.0); HEMOGLOBIN 17.9 g/dL (14.0-18.0); IMM GRAN# 0.03 X1000 (0.0-0.04); IMM GRAN% 0.2 % (0.0-0.5); LYMPH# 2.57 X1000 (1.2-3.4); LYMPH% 19.4 % (20.5-51.1); MCH 29.2 PG (27-31); MCHC 32.7 g/dL (33-37); MCV 89.5 FL (81-99); MONO# 1.47 X1000 (0.11-0.59); MONO% 11.1 % (1.7-9.3); MPV 10.4 FL (7.4-10.4); PLT 285 X1000 (130-400); RBC 6.12 XMIL (4.7-6.1); RDW 14.6 % (11.5-14.5); WBC 13.27 X1000 (4.8-10.8)
[2019-09-02 06:57] LABS: AGAP 18; ALB/GLOB RATIO 0.8; ALBUMIN 3.3 g/dL (3.5-5.0); ALKALINE PHOSPHATASE 92 U/L (32-122); BUN 14 mg/dL (8-22); CALCIUM 9.2 mg/dL (8.8-10.2); CHLORIDE 102 mmol/L (98-107); COSMO 279; CREATININE 1.1 mg/dL (0.7-1.2); ESTIMATED GFR > 60; GLUCOSE 120 mg/dL (70-104); GOT 29 U/L (10-34); GPT 26 U/L (10-44); MAGNESIUM 1.8 mg/dL (1.5-2.7); POTASSIUM 3.3 mmol/L (3.5-5.1); SODIUM 139 mmol/L (136-145); TCO2 19 mmol/L (25-35); TOTAL BILIRUBIN 1.34 mg/dL (0.20-1.00); TOTAL PROTEIN 7.2 g/dL (6.3-8.3)
--- NOTE | 2019-09-02 10:03 | PROGRESS NOTE ---
DATE: 09/02/2019 SUBJECTIVE: This morning Mr. Nieto is seen in the ICU. The mother of his kids was at the bedside at the time of the encounter. Per the pin drafting machine operator, Mr. Nieto remains fairly the same. She did however say that he was able to wake up and look at her early on today. During the encounter, the nurses changed his bed lining, and he was able to move very actively, participating to change his lining moving more actively towards his right side, not so much towards the left side. He was also able to drink a cup of water with ice. He would wake up and look at the side where the pin drafting machine operator is, but he continues to be nonverbal. OBJECTIVE: Vital signs: Blood pressure is 133/103, pulse of 92 respiration is 18, temperature is 99.4 degrees. General exam: Mr. Nieto is a 38-year-old gentleman. He is in bed. He does not seem to be in any distress. HEENT: Mucosa is pink and moist. Anicteric. Acyanotic. Neck: Supple. I did not see any JVD, and there was no carotid bruit. There is an old tracheostomy scar in the anterior lower neck. Chest: Good air entry bilaterally. There were no crepitations, no rhonchi. Cardiovascular: Regular rate and rhythm. No murmurs, no rubs, no gallops. GI/Abdomen: Soft, nontender. Bowel sounds present. Extremities: There was no pedal edema. SILHOUETTE ARTIST: Patient is sleepy. However, he would wake up intermittently, look in the pin drafting machine operator's direction, and then close his eyes back. He was, however, awake and followed commands enough to drink a cup of water in front of me and the attending nurse and the mother of the kids. He was able to move very actively his left side, not so the right. He would lift up his arm and move the left lower extremity, but when I stimulate the right side, he would barely move the right lower extremity. When the nurses ask him to move his right upper extremity in attempt to put on his gown, he was not able to help with that. His face has also mild right-sided facial weakness. ASSESSMENT: 1. Altered mental status. Initially there was no focalization. However, this morning there is what appears to be a right-side weakness. Unsure if the patient had an acute cerebrovascular accident, so we are going to repeat his CAT scan this morning. Of note, the CAT scan that was done yesterday did show an old left posterior cerebral territorial old stroke, but there was also lacunar infarct in the right caudate head. The weakness is at the right side, and we would hope to see more findings on the left side of his brain. Unfortunately, the age- indeterminate infarct in the CAT scan was on the right side. We are going to repeat a CAT scan to see if there have been any changes. Mr. Nieto's, however, mentation seems to be getting better because this morning he is able to sit up. He is able to help the nurses change his bedding by moving. 2. Suspected recreational drug use. Initially, Mr. Nieto's presentation of altered mental status was suspected to be all related to drug induced. His urine drug screen was positive for cannabinoids. This morning, I think his mentation is getting clearer. 3. Uncontrolled hypertension. For now we are going to be extremely cautious with the blood pressure management because we are not certain if Mr. Nieto has a new stroke. We will give more recommendations on the blood pressure management after the new neural imaging. Unfortunately, we cannot do an MRI over the weekend. 4. History of severe dilated nonischemic cardiomyopathy with ejection fraction of 10% is noted. 5. Mildly elevated troponin on admission, presumably from demand ischemia. 6. Clinical volume depletion. Patient is on very low gentle intravenous fluids, and we are keeping a very close eye on his fluid status. cc: Estuardo Domínguez MD Critical time spent 1 hour [facility]ENTERSharifa
[2019-09-02] MEDS: THIAMINE IM SCH (10:28)
--- NOTE | 2019-09-02 10:44 | Diag Imaging Result Doc PS360 ---
CT HEAD W/O CONTRAST - 09/02/2019 INDICATION: right sided weakness COMPARISON: 09/01/2019 FINDINGS: There is now appearance of significant hypodensity of the anterior left middle cerebral artery territory consistent with a recent stroke here. This mainly involves the lateral left frontal lobe, and also the temporal lobe. No mass effect or hemorrhage. IMPRESSION: Recent, relatively large stroke in the left middle cerebral artery territory. This report was discussed with RT Lianne on 09/02/2019 at 10:40 AM and was readback. This exam was performed using automated exposure control, adjustment of mA or kV according to patient size, and/or use of iterative reconstruction technique Electronically signed by Kaushik Mcelroy 09/02/2019 10:42 AM
--- NOTE | 2019-09-02 11:16 | Diag Imaging Result Doc PS360 ---
CT ANGIOGRAM HEAD/NECK - 09/02/2019 INDICATION: CVA. Right side weakness TECHNIQUE: Axial CT images were obtained after administering intravenous contrast. Three-dimensional angiographic images were generated. COMPARISON: None FINDINGS: Normal aortic arch and great vessels. The carotid artery systems are patent bilaterally. No vascular calcification or significant plaque buildup. There is significant thrombosis of the M1 segment of the left middle cerebral artery within the sylvian fissure. Other cerebral arteries are patent and appear normal. Vertebral and basilar arteries are patent. Cerebellar arteries are patent. IMPRESSION: Significant vascular thrombosis of the left middle cerebral artery. No other significant arterial disease. This indicates a thromboembolic phenomenon. This report was discussed with Moira on 09/02/2019 at 11:10 AM and was readback. This exam was performed using automated exposure control, adjustment of mA or kV according to patient size, and/or use of iterative reconstruction technique Electronically signed by Kaushik Mcelroy 09/02/2019 11:14 AM
[2019-09-02] MEDS ORDERED: HEPARIN IV PRN (13:20)
[2019-09-02] MEDS ORDERED: HEPARIN 25,000 UNITS/D5W 25,000 UNIT/250 ML IV.SOLN IV SCH (13:30)
[2019-09-02 13:58] LABS: INR 1.12; PROTIME 14.6 Seconds (11.0-16.0)
[2019-09-02 13:59] LABS: PTT 26.4 Seconds (22.3-41.8)
--- NOTE | 2019-09-02 14:30 | PROGRESS NOTE ---
DATE: 09/02/2019 This morning Mr. Nieto did have a right-side weakness and we were concerned of a CVA, so we repeated a CAT scan. The report of the CAT scan shows that there is a recent relatively large stroke in the left and middle cerebral artery territory. The head and neck CTA shows a significant vascular thrombosis of the left middle cerebral artery. No other significant arterial disease. This indicated a thromboembolic phenomenon. Of note, Mr. Nieto is known to have ventricular thrombus on a recent echo in May and he was supposed to be on Coumadin. Apparently, he has not been taking his Coumadin nor any of his other medications. His current INR is 1.11. Upon receiving the results of the CAT scan, I called [facility] transfer center and was able with Dr. Odom, who is the neurologist sanitation worker hosing machinery, read the report of the recent CAT scan and the CTA and he recommended that he Mr. Nieto seems to be out of the window of any intervention and that [facility] at this point does not have any neuro spotter driver covering for the weekend so they would not be able to do even anything if we send him there and he did recommend that we try [facility] or any other place. I called [facility] transfer center and I was able to talk with Dr. Jessica Hughes, who is the stroke neurologist sanitation worker hosing machinery, told him about the presentation of Mr. Nieto, his past medical history, and the fact that he also has a clot in the left ventricle with ejection fraction of 10 and that he came yesterday and he seems to have been just altered encephalopathic generally but this morning he did show signs of right-sided weakness and a CAT scan report as well as a CTA report were all read to him. His recommendation was that for now Mr. Nieto is out of any window for even thrombectomy since the stroke is even apparent on the CAT scan and that most times if they do any thrombectomy in this instance the patient get worse outcomes. He also recommends that the reason why he had this large stroke is because of the clots in his heart and that being noncompliant with his Coumadin has been the cause, so he recommended to start him on heparin drip and repeat his CAT scan tomorrow morning and just keep the APTT within therapeutic range. I did voiced my concern of hemorrhagic transformation however Dr Hughes thinks that though the risk is real, Mr Pillar will need Heparin and the sooner the better. We will continue with his recommendations over here and get a CAT scan tomorrow morning and hopefully I will get neurology to see him here on Wednesday. I have discussed these recommendations with the attending nurse. cc: Estuardo Domínguez MD MTDD
[2019-09-02] MEDS: FOLIC ACID 1 MG in NS 50 ML IV SCH (16:09)
[2019-09-03 06:18] LABS: BASO# 0.05 X1000 (0.0-0.2); BASO% 0.3 % (0.0-0.8); EOS# 0.16 X1000 (0.0-0.7); EOS% 1.1 % (0.0-10.0); HEMATOCRIT 52.1 % (42.0-52.0); HEMOGLOBIN 17.1 g/dL (14.0-18.0); IMM GRAN# 0.03 X1000 (0.0-0.04); IMM GRAN% 0.2 % (0.0-0.5); LYMPH# 3.34 X1000 (1.2-3.4); LYMPH% 23.3 % (20.5-51.1); MCH 29.5 PG (27-31); MCHC 32.8 g/dL (33-37); MCV 89.8 FL (81-99); MONO# 1.69 X1000 (0.11-0.59); MONO% 11.8 % (1.7-9.3); MPV 10.5 FL (7.4-10.4); NEUT# 9.09 X1000 (1.4-6.5); NEUT% 63.3 % (42.2-75.2); PLT 256 X1000 (130-400); RDW 14.8 % (11.5-14.5); WBC 14.36 X1000 (4.8-10.8)
[2019-09-03 06:27] LABS: AGAP 17; ALB/GLOB RATIO 0.9; ALBUMIN 3.3 g/dL (3.5-5.0); ALKALINE PHOSPHATASE 92 U/L (32-122); BUN 16 mg/dL (8-22); CALCIUM 9.4 mg/dL (8.8-10.2); CHLORIDE 102 mmol/L (98-107); COSMO 283; CREATININE 1.5 mg/dL (0.7-1.2); ESTIMATED GFR > 60; GLUCOSE 114 mg/dL (70-104); GOT 62 U/L (10-34); GPT 48 U/L (10-44); POTASSIUM 3.4 mmol/L (3.5-5.1); SODIUM 141 mmol/L (136-145); TCO2 22 mmol/L (25-35); TOTAL BILIRUBIN 1.08 mg/dL (0.20-1.00); TOTAL PROTEIN 7.1 g/dL (6.3-8.3)
[2019-09-03] MEDS: THIAMINE IM SCH (10:00)
[2019-09-03] MEDS ORDERED: NS 1,000 ML IV SCH (12:00)
[2019-09-03] MEDS ORDERED: PROTONIX PO ONE (12:02)
--- NOTE | 2019-09-03 12:25 | PROGRESS NOTE ---
DATE: 09/03/2019 SUBJECTIVE: This morning, Mr. Nieto remains aphasic. He was able to move the left side very actively. He is also able to move the right lower extremity upon stimulation. However, he is not moving the right upper extremity. OBJECTIVE: Vital Signs: Blood pressure 127/105, pulse of 89, respirations 20, temperature is 97.4 degrees. General: Mr. Nieto is a 38-year-old gentleman. He is in bed. No distress. He is not on any supplemental oxygen. HEENT: Mucosa is pink and moist. Anicteric. Acyanotic. Neck: Supple. Chest: Good air entry bilaterally. There are no crepitations, no rhonchi. Cardiovascular: Regular rate and rhythm. No murmurs, no rubs, no gallops. GI: Abdomen is soft. Bowel sounds present. Extremities: No pedal edema. DANCE STUDIO MANAGER: The patient is sleepy, but easily arousable. I understand he woke up this morning and fed himself for breakfast. He seems to follow commands. He is able to move the left side very actively on command. He will withdrawal very actively the right lower extremity, but he is not moving the right upper extremity, and he remains aphasic. IMAGING: A CT scan yesterday did show a recent relatively large stroke in the left middle cerebral artery territory. A head CTA showed a significant vascular thrombosis of the left middle cerebral artery. ASSESSMENT: 1. Right-sided hemiparesis associated with aphasia secondary to acute cerebrovascular accident in the left dominant hemisphere (middle cerebral artery territory infarct). A CTA showed an acute thrombosis in the middle cerebral artery, which is presumed to be thromboembolic from the heart. I spoke extensively with Dr. Hughes yesterday, and he did give us some recommendations. He did say that the patient was not a candidate for any neurological intervention at this point, and just medical management and observation. And to start heparin 2. Uncontrolled hypertension. We are going to continue to allow some permissive hypertension to help perfuse the penumbra of the ischemic zone. 3. Severe dilated nonischemic cardiomyopathy with ejection fraction of 10% is noted with LV clot on previous echo. The patient continues to be euvolemic. 4. Elevated troponin on admission, presumably from demand ischemia. However, it could also reflect the injury from the brain. 5. Clinical volume depletion. Will continue with gentle intravenous fluids. 6. Recreational drug use with urine drug toxicology positive for cannabinoids. 7. Subtherapeutic INR. Non compliance with warfarin therapy In general, I think Mr. Nieto remains stable. I think his right upper extremity seems to be weaker today than yesterday. We are going to continue to monitor neurologically. We are going to continue with his heparin drip. A CT scan of the brain, which was recommended by Dr. Hughes for this morning, is still pending. We will get Neurology to evaluate Mr. Nieto tomorrow morning. Will continue with the folic acid. Will also continue with timing proton pump inhibitor, and start him on statin as well as aspirin. We are going to repeat a bedside echocardiogram, looking mainly for ejection fraction and possible thrombus in the heart. I think at some point, Mr. Nieto, within the next day or two, would have to overlap Coumadin with the heparin therapy, and get him therapeutic on INR before he gets discharged. cc: Estuardo Domínguez MD Addendum: Ct head of head shows hemorrhagic transformation. Dc Heparin. Neuro checks q [address] Simon in the morning. Continue with gentle hydration. Monitor BP and repeat CT scan in AM. MTDD
[2019-09-03] MEDS ORDERED: HEPARIN 25,000 UNITS/D5W 25,000 UNIT/250 ML IV.SOLN IV SCH (13:02)
[2019-09-03] MEDS: THERA M PLUS PO SCH (13:10)
--- NOTE | 2019-09-03 13:46 | Diag Imaging Result Doc PS360 ---
CT HEAD W/O CONTRAST - 09/03/2019 INDICATION: cva. pte on heparin. r/o hemorrhagic transformasti COMPARISON: 09/01/2019 FINDINGS: There is a moderately large acute intraparenchymal hematoma. This is centered in the middle of the right frontal-temporal lobe area. There is some mass effect with deviation of the midline towards the right, by about 2 to 3 mm. This also compresses the anterior horn of the left lateral ventricle. Maximally, the hematoma measures 3.4 x 1.9 cm. The skull is intact. The sinuses are clear. IMPRESSION: Recent, large left middle cerebral artery territory stroke. Complicated by an acute intraparenchymal hemorrhage. This report was discussed with RT Lianne on 09/03/2019 at 1:40 PM and was readback. This exam was performed using automated exposure control, adjustment of mA or kV according to patient size, and/or use of iterative reconstruction technique Electronically signed by Kaushik Mcelroy 09/03/2019 1:43 PM
[2019-09-03] MEDS ORDERED: COREG PO SCH (21:00)
[2019-09-04 05:16] LABS: BASO# 0.04 X1000 (0.0-0.2); BASO% 0.3 % (0.0-0.8); EOS# 0.15 X1000 (0.0-0.7); HEMATOCRIT 48.7 % (42.0-52.0); IMM GRAN# 0.04 X1000 (0.0-0.04); IMM GRAN% 0.3 % (0.0-0.5); LYMPH# 2.63 X1000 (1.2-3.4); LYMPH% 18.2 % (20.5-51.1); MCH 29.9 PG (27-31); MCHC 32.9 g/dL (33-37); MONO# 1.92 X1000 (0.11-0.59); MONO% 13.3 % (1.7-9.3); MPV 10.4 FL (7.4-10.4); NEUT# 9.64 X1000 (1.4-6.5); NEUT% 66.9 % (42.2-75.2); PLT 197 X1000 (130-400); RBC 5.35 XMIL (4.7-6.1); RDW 14.8 % (11.5-14.5); WBC 14.42 X1000 (4.8-10.8)
[2019-09-04 05:51] LABS: AGAP 13; ALB/GLOB RATIO 0.9; ALBUMIN 2.9 g/dL (3.5-5.0); ALKALINE PHOSPHATASE 80 U/L (32-122); BUN 19 mg/dL (8-22); CALCIUM 8.5 mg/dL (8.8-10.2); CHLORIDE 104 mmol/L (98-107); COSMO 282; CREATININE 1.2 mg/dL (0.7-1.2); ESTIMATED GFR > 60; GLUCOSE 104 mg/dL (70-104); GOT 37 U/L (10-34); GPT 35 U/L (10-44); POTASSIUM 3.5 mmol/L (3.5-5.1); SODIUM 140 mmol/L (136-145); TCO2 23 mmol/L (25-35); TOTAL BILIRUBIN 1.13 mg/dL (0.20-1.00); TOTAL PROTEIN 6.3 g/dL (6.3-8.3)
[2019-09-04] MEDS: PROTONIX PO SCH (06:02)
--- NOTE | 2019-09-04 07:53 | ECHO REPORT ---
ORDER DATE: 09/03/2019 INTERPRETING PHYSICIAN: Dr. Magallon REQUESTING PHYSICIAN: Hospitalist CLINICAL INDICATIONS: This is a 38-year-old male, test requested for evaluation of ejection fraction and a presence of ventricular thrombus as noted on previous study from 06/05/2019. Optison added for optimization of endocardium M-MODE MEASUREMENTS: Right ventricle: cm. Left ventricle end diastole: 7.2 cm. Left ventricle end systole: 3.9 cm. Posterior wall: 1.0 cm. Interventricular septum: 1.0 cm. Left atrium: cm. Aortic root: cm. SUMMARY OF 2-DIMENSIONAL IMAGIN. Left ventricular chamber is markedly dilated. The end systolic volume is 361 mL with an index of 194 mL per m sq of body surface area, indicating that it is really a huge ventricle. Global ejection fraction is severely decreased, estimated at 15% to 20%. 2. Aortic valve looks grossly normal. Color flow mapping is unremarkable. 3. Tricuspid valve looks grossly normal. Color flow mapping indicates mild regurgitation. 4. The mitral valve shows also minimal degree of regurgitation. 5. There is evidence of an apical thrombus that appears to have sort of a polypoid appearance. It is attached to the most apical portion of the inferior wall of the left ventricle measuring 2.3 x 1.5 cm in largest dimensions. It is very dense, indicating that it is an old organized thrombus. There is evidence of spontaneous echocontrast within the left ventricular chamber indicating low flow status. 6. The color flow mapping of the aortic valve showed mild degree of aortic regurgitation. 7. The color flow mapping of the mitral valve indicated mild to moderate degree of regurgitation. 8. Inferior vena cava is at the upper limits of normal. 9. When compared to prior study from May, I do not believe there is any significant change. cc: MD Estuardo Headley MD [facility] MED[facility] CENTERSharifa
--- NOTE | 2019-09-04 08:55 | Diag Imaging Result Doc PS360 ---
EXAM: CT HEAD W/O CONTRAST 09/04/2019 HISTORY: CVA with bleed TECHNIQUE: This exam was performed using automated exposure control, adjustment of mA or kV according to patient size, and/or use of iterative reconstruction technique. COMMENT: The current study is compared with the previous examination of 09/03/2019. In addition to the hematoma in the basal ganglia on the left, there is also a subcortical bleed in the left parietal convexity measuring almost 14 mm in greatest dimension with peripheral cytotoxic edema. This was less apparent on the previous examination. The hematoma which extends from the head of the caudate nucleus through the putamen on the left measures at least 4.4 cm in greatest dimension and is slightly larger in appearance than on the previous study with more discretely visible cytotoxic edema surrounding the hematoma. The septum pellucidum is displaced at least 5 mm to the right which has increased slightly since the previous examination at which time it was less than 4 mm. There is encephalomalacia in the posterior temporal and occipital lobes on the left adjacent to the lower portion of the falx and the tentorium, which has not changed since the previous study and is likely related to an old infarction in the distribution of the left posterior cerebral artery. There are some small lucencies in the right cerebellar hemisphere which were also present previously and are likely also be due to previous infarcts. There is encephalomalacia posteriorly in the right parietal lobe which also has not changed. The paranasal sinuses which are visible are clear and the calvarium is intact. IMPRESSION: 1. Subcortical intraparenchymal bleed in the posterior left parietal lobe. This was not evident at the time the previous study. 2. Slightly enlarged basal ganglia hematoma on the left with worsened cytotoxic edema. 3. Old infarcts as described. The findings were discussed with Estuardo Domínguez MD at 09/04/2019 8:53 AM. Electronically signed by Brenton Dey 09/04/2019 8:53 AM
[2019-09-04] MEDS: THERA M PLUS PO SCH (09:04)
[2019-09-04] MEDS: VITAMIN B-1 PO SCH (09:05)
--- NOTE | 2019-09-04 09:49 | CONSULTATION ---
DATE OF CONSULTATION: 09/04/2019 HISTORY OF PRESENT ILLNESS: Mr. Nieto is 38 years old and he had imaging evidence of acute ischemic dominant left hemisphere infarction. Subsequent scan showed some hemorrhagic conversion in that territory. He is not able to provide history. There is not a historian available at the bedside right now. Therefore, my history is taken solely from review of the current hospitalization records. He apparently was away from home for a time, returned, later seemed to be sleeping and then had a fall. He was poorly responsive on arrival in the emergency room 3 days ago. Initially, there was not clear focal neurologic feature identified. He developed definite right hemiparesis and that has continued. Initial noncontrast CT showed the old posterior infarctions bilaterally. (Brain MRI in 2016 showed the left posterior hemisphere infarction to be acute then and the right posterior hemisphere infarction to be old at that time.) He had noncontrast CT repeated the next day, showing evidence of acute ischemic infarction in the left middle cerebral territory. Followup scan the next day showed area of bleeding into that recent left MCA territory infarction. He has had CT scan repeated this morning. CT angiogram showed left middle cerebral artery thrombus. There is reported to be longstanding problems with poor heart function, low ejection fraction, documented left ventricular thrombus on echocardiogram several months ago. Echocardiogram this admission shows left apical thrombus, EF 15%-20%. He apparently was not compliant with his medical management including warfarin. He presented with PT 14.5 seconds, INR 1.11. He received IV heparin earlier this admission and that was stopped after discovery of intracerebral hemorrhage. PTT was 24.4 seconds on admission, reached 70s while on heparin and is back to 30.5 seconds this morning. Systolic blood pressures were 140s/100s initially, 120s/90s in recent hours. He has been afebrile. PHYSICAL EXAMINATION: On exam, Mr. Nieto is awake and alert. He seems attentive. He was able to mumble, but I could not stand any words. He seemed to attempt to follow commands, but was not able to follow any commands. He mimicked inconsistently. He has a left gaze preference, but there is full lateral eye movement with passive head turning. He seemed to regard me and to fix his gaze on me when I was in his left visual field, but not when I was to his right. He moved his left limbs purposefully. He did not move the right limbs purposefully during my time at the bedside. He did withdraw his right leg briskly with minimal noxious stimulation. IMPRESSION AND PLAN: Large dominant left middle cerebral artery infarction with moderate volume hemorrhage in the area of infarction. He has right hemiparesis and global dysphasia. I did not examine swallowing, visual field or sensation. There is imaging evidence of prior posterior hemisphere infarctions bilaterally, apparently occurring at different times since MRI showed the left to be acute and the right to be old in 2016. Risk factors include hypertension, but more concerning are his heart disease and ventricular thrombus as cardioembolic source of left MCA thrombus. I agree with recommendation for intermission coordinator anticoagulation when stable. However, in light of the size of ischemic infarction and recent cerebral hemorrhage, I think we need to withhold anticoagulation short term. We can make a decision to resume or continue holding anticoagulation in a few days, depending on his clinical course. Short term, I would continue allowing moderate hypertension from purely acute stroke management standpoint, but suspect cardiac status will limit that. Longer term, he will need to have blood pressure managed to best support his heart function. Thanks for asking Neurology to see Mr. Nieto. cc: MD SAUNDRA Borden III
--- NOTE | 2019-09-04 10:58 | PROGRESS NOTE ---
DATE: 09/04/2019 SUBJECTIVE: This morning, Mr. Nieto continues to be stable. The girlfriend was at the bedside at the time of the encounter. Mr. Nieto remains aphasic. However, he seems to understand when is asked to perform some tasks. He has been feeding himself and he uses very well the left side. It is documented that he has consumed 100% of his meals. OBJECTIVE: Current Vital Signs: Blood pressure is 128/102, pulse of 97, respirations are 23, temperature is 98.2 degrees. General Examination: Mr. Nieto is a 38-year-old, male. He is in bed. No distress. HEENT: Mucosa is pink and moist. Anicteric. Acyanotic. Neck: Supple. No JVD. Respiratory System: There is good air entry bilaterally. No crepitations. No rhonchi. No accessory muscle use. Cardiovascular: Regular rate and rhythm. No murmurs, no rubs, no gallops. GI: Abdomen is soft, nontender. Bowel sounds present. : Berrios catheter is in place. HOME HEALTH CLINICIAN: The patient is more alert this morning. He seems to follow basic commands. He is able to actively move the left side of his body upon command. He is not able to move the right side. He is able to withdrawal the right lower extremity on painful stimulation with positive Babinski but he is not able to lift it against gravity. He is not able to move the right upper extremity at all. Laboratory Data: WBC is 14.42, hemoglobin is 16, platelet count of 197,000. Chemistry is also reviewed and, for the most part, unremarkable. The patient's current medications have all been reviewed. A repeat CT scan this morning shows subcortical intraparenchymal bleed in the posterior left parietal lobe. There is also a slight enlarged basal ganglia hematoma on the left with worsened cytotoxic edema. There are old infarcts as well. ASSESSMENT: 1. Right side hemiparesis associated with aphasia secondary to acute left dominant hemispheric stroke (mid cerebral artery territorial infarct). A CT scan this morning shows hemorrhagic transformation which seems to be slightly worsened with cytotoxic edema. I have reached out to the [facility] team. Dr. Hughes is off today and I was able to talk with his partner, Dr. Waldron. We were also able to push all the CAT scan images into the [facility] PAC system. Dr. Waldron was able to review the images himself. At this point, he recommends to continue withholding anticoagulation for now. However, he thinks that long- term, the patient will need anticoagulation. He also recommends to continue monitoring and repeat his CAT scan tomorrow to make sure that there is not any major shift. Mr. Nieto is also pending evaluation today by neurology. 2. Uncontrolled hypertension. We will continue to allow some permissive hypertension for now. On the long-term, however, it is going to be imperative for Mr. Nieto to have adequate blood pressure control. 3. Severe dilated nonischemic cardiomyopathy with ejection fraction of 10% on a previous echocardiogram. A limited echocardiogram yesterday showed an ejection fraction of 15-20%. There is still a left ventricle apical thrombus noted on the echocardiogram. 4. Elevated troponin on admission, presumably from demand ischemia. 5. Clinical volume depletion, improved. 6. Recreational drug use with urine drug screen positive for cannabinoids. 7. Subtherapeutic INR, concerning for noncompliance with warfarin therapy. PLAN: In general, I think Mr. Nieto is clinically stable. A CAT scan this morning shows mild worsening. I have reached out to the [facility] team, spoken with Dr. Waldron, and his recommendations are noted in the plan. Mr. Nieto is also pending evaluation today by neurology. We will continue to monitor him in the ICU. We will repeat his CAT scan for tomorrow. In terms of disposition, I think Mr. Nieto will need to be discharged to rehab to see if he can benefit from any gain of function of his neurological deficit. cc: Estuardo Domínguez MD
[2019-09-05 06:11] LABS: BASO# 0.04 X1000 (0.0-0.2); BASO% 0.3 % (0.0-0.8); EOS% 2.2 % (0.0-10.0); HEMATOCRIT 45.5 % (42.0-52.0); HEMOGLOBIN 14.8 g/dL (14.0-18.0); IMM GRAN# 0.04 X1000 (0.0-0.04); IMM GRAN% 0.3 % (0.0-0.5); LYMPH# 2.88 X1000 (1.2-3.4); LYMPH% 20.7 % (20.5-51.1); MCHC 32.5 g/dL (33-37); MCV 92.1 FL (81-99); MONO# 1.59 X1000 (0.11-0.59); MONO% 11.4 % (1.7-9.3); MPV 10.4 FL (7.4-10.4); NEUT# 9.07 X1000 (1.4-6.5); NEUT% 65.1 % (42.2-75.2); PLT 162 X1000 (130-400); RBC 4.94 XMIL (4.7-6.1); RDW 14.9 % (11.5-14.5); WBC 13.92 X1000 (4.8-10.8)
[2019-09-05] MEDS: PROTONIX PO SCH (06:33)
[2019-09-05 06:46] LABS: AGAP 14; ALBUMIN 2.9 g/dL (3.5-5.0); BUN 21 mg/dL (8-22); CALCIUM 8.9 mg/dL (8.8-10.2); CHLORIDE 97 mmol/L (98-107); COSMO 271; CREATININE 1.3 mg/dL (0.7-1.2); ESTIMATED GFR > 60; GLUCOSE 91 mg/dL (70-104); PHOSPHORUS 3.4 mg/dL (2.7-4.5); POTASSIUM 3.7 mmol/L (3.5-5.1); SODIUM 134 mmol/L (136-145); TCO2 23 mmol/L (25-35)
--- NOTE | 2019-09-05 07:47 | Diag Imaging Result Doc PS360 ---
EXAM: CT HEAD W/O CONTRAST 09/05/2019 HISTORY: hemorrhagic transformation TECHNIQUE: This exam was performed using automated exposure control, adjustment of mA or kV according to patient size, and/or use of iterative reconstruction technique. COMMENT: The hemorrhagic infarcts present in the posterior left parietal convexity and basal ganglia region on the left are again noted. The extent of the bleed in the basal ganglia appears to have diminished slightly since the previous examination. There is no apparent change in the left parietal bleed. The degree of shift of the midline has also diminished to less than 4 mm. Otherwise are has been no appreciable change. IMPRESSION: Slightly improved cytotoxic edema and mass effect on the left as described. Electronically signed by Brenton Dey 09/05/2019 7:44 AM
[2019-09-05] MEDS: VITAMIN B-1 PO SCH (08:32)
[2019-09-05] MEDS: THERA M PLUS PO SCH (08:32)
--- NOTE | 2019-09-05 09:21 | PROGRESS NOTE ---
DATE: 09/05/2019 The patient's attending, hospitalist physician was previously Dr. Domínguez, though will be Dr. Oleary this morning, 09/05/2019. Mr. Nieto is a 38-year-old, male who was admitted on 09/01/2019 after having a syncopal episode. He was found to have right side hemiparesis associated with aphasia secondary to acute left dominant hemispheric stroke with a mid cerebral artery territorial infarct. He also was noted to have severe diastolic, nonischemic cardiomyopathy with an ejection fraction of 10% on a previous echocardiogram. His echocardiogram performed 2 days ago did show an ejection fraction of 15-20%. There was still a left ventricle apical thrombus noted. Yesterday morning, on September 04, Dr. Domínguez did order the patient to have a CT of head without contrast. It did show a hemorrhagic transformation of his stroke which seems to be slightly worsened with cytotoxic edema. He did call and speak to the [facility] Neurology team. He spoke with Dr. Waldron. They did discuss the patient's case. Dr. Waldron, from Dr. Domínguez's progress note, did review the images themselves and recommended to continue withholding anticoagulation. He did recommend to continue monitoring and repeat his CAT scan the next morning to make sure there was no major shift. The patient did have his repeat CT of the head without contrast performed this morning. The radiologist with the overnight radiology interpretation group did call critical findings of involving left basal ganglia, intraparenchymal hemorrhage with surrounding edema, similar 5 mm right or midline shift, and intraventricular extension. There was also similar left parietal vertex parenchymal hemorrhage with surrounding edema. There were chronic bilateral multifocal areas of encephalomalacia from prior infarcts. Given these findings, I did notify Dr. Otero, the overnight hospitalist attending physician. He and myself did go to the patient's bedside to assess him. The patient does seem to be pretty much at his baseline that he has been at since admission except for the nurse did state that he has been more drowsy throughout the night, a little bit harder to arouse then he has been previously. Other than this, all of his other neurological symptoms have not changed. He does still have the right-sided hemiparesis. He does open his eyes to verbal calling of his name with very light tactile stimulation. He will follow commands. He was able to squeeze my hand and wiggle his foot when asked. He does have a GCS of 11 at this time. Pupils are equal, round, and reactive bilaterally, though his pupils are dilated at approximately 4 to 5 mm bilaterally. He does moan and will nod his head yes and no, though he has been nonverbal. He does have global aphasia noted. This had been previously present, and is not new. Given the patient's CT findings, Dr. Otero and I did notify Dr. Oleary who will be taking over for Dr. Domínguez's patient today. We did update him on his history of present illness, past medical history, current medical problems, current physical examination, old and new CT results that were obtained this morning. We will continue to monitor the patient very closely in the ICU. He is on continuous cardiac telemetry and pulse oximetry. He does receive vital signs every 15 minutes per ICU protocol. We will continue with close neurological monitoring. Further orders and recommendations pending hospital course, diagnostic studies, and physician evaluation. Dictated by LILIANA Dixon for Steven Otero MD cc: Steven Otero MD MTD
--- NOTE | 2019-09-05 14:29 | PROGRESS NOTE ---
DATE: 09/05/2019 Mr. rose is actually neurologically improved. He is moving his feet and his arms. He opens his eyes. He appears to be comfortable. Temperature is 97.1 degrees, pulse 96, respirations 26, blood pressure 125/98. Pupils are equal and round. Lungs are clear in all lung shannon. Cardiovascular. Regular rhythm, rate without murmur or S3. Abdomen is soft, nondistended. No pedal edema and he is responding to voice and touch. ASSESSMENT AND PLAN: 1. Right-sided hemiparesis associated with aphasia secondary to acute left dominant hemispheric stroke, mid cerebral artery territorial infarct. CT scan done yesterday morning showed hemorrhagic transformation which seems to be slightly worsened with cytotoxic edema. We called [facility]. Dr. Hughes was off today but he was able to see Dr. Waldron and felt like we were able to send the CAT scan images to [facility]. Dr. Waldron reviewed the images. Recommend continue withholding anticoagulation. Thinks that long-term the patient will need anticoagulation. Also recommends continue monitoring CAT scans. We repeated 1 this morning, is question on whether it is worse but clinically he seems to be improving. 2. Uncontrolled hypertension so going to allow permissive hypertension for now and his blood pressures look like they are doing well. The ranges 125 to 138, diastolic it is 99 to 115. He is getting Protonix 40 mg a day and he is getting thiamine 100 mg p.o. daily. 3. Severe dilated nonischemic cardiomyopathy ejection fraction 10% on previous echocardiogram. Limited echocardiogram showed ejection fraction 15 to 20 percent. Still left ventricular apical thrombus noted in the echocardiogram. 4. Elevated troponin on admission presumably from demand ischemia, demand supply mismatch. 5. Clinical volume depletion improved. 6. Recreational drug use and urine drug screen positive for cannabinoids. 7. Subtherapeutic INR concerning for compliance of his Coumadin therapy . SUMMARY: He clinically is improving and continue conservative therapy. He is off anticoagulation. Neurologically hopefully will continue to improve. At some point we are going to have to put him back on anticoagulant because his mural thrombus. Dr. Simon is following along. [facility] did not want to transfer him at this time. cc: Mateusz Oleary MD
--- NOTE | 2019-09-05 16:30 | PROGRESS NOTE ---
DATE: 09/05/2019 SUBJECTIVE: No major overnight events. The significant other at bedside reports the patient has seemed to move his right lower extremity today. She believes she has noticed a gradual improvement. OBJECTIVE: vital signs: Blood pressures generally 120s to 140s systolic over 90s to low 100s diastolic today, pulse 95, respiratory rate 20. Neurologic: Mr. Nieto is sitting up in bed awake and alert. He regards as I enter the room. He tracks. I do not observe a gaze preference today at rest. There is full spontaneous horizontal eye movement. Pupils are equal, round, and reactive to bright light. Gaze is conjugate. There was not obvious facial droop at rest. With questions he seems to subtly mumble or he shakes his head and that seems to be mostly appropriate. He did raise his thumb on command. When asked to show 2 fingers, he simply raised his hand. He did not follow other commands. He did not speak. There was purposeful movement of the left arm and leg. I did today see him spontaneously move his right lower extremity with gravity. I did not see movement of the right upper extremity. He does respond to noxious stimuli in the right and left extremities with grimace and using the left arm to reach over. He also withdrew the right leg. DIAGNOSTICS: Head CT this morning with impression of slightly improved cytotoxic edema and mass effect on the left. LABORATORIES: Reviewed in the chart. PTT of 30. ASSESSMENT AND PLAN: Large dominant left middle cerebral artery territory ischemic infarct with moderate hemorrhagic transformation while on heparin. He has a right hemiparesis with evidence of global aphasia. Currently he seems clinically stable though he is not out of the window and needs continued close monitoring and neurologic checks. If there is any concern of clinical worsening, worsening headache, any vomiting, or difficulty arousing, then I would recommend urgent repeat CT. I would continue holding heparin for now given his recent large infarct and subsequent hemorrhagic conversion while on heparin. I understand he needs it more senior living, however. cc: Tsering Patel MD MTDD
[2019-09-06] MEDS: PROTONIX PO SCH (06:14)
[2019-09-06 06:30] LABS: BASO# 0.05 X1000 (0.0-0.2); BASO% 0.5 % (0.0-0.8); EOS# 0.41 X1000 (0.0-0.7); EOS% 3.8 % (0.0-10.0); HEMATOCRIT 47.2 % (42.0-52.0); HEMOGLOBIN 15.3 g/dL (14.0-18.0); IMM GRAN# 0.03 X1000 (0.0-0.04); IMM GRAN% 0.3 % (0.0-0.5); LYMPH# 3.36 X1000 (1.2-3.4); LYMPH% 31.1 % (20.5-51.1); MCH 29.7 PG (27-31); MCHC 32.4 g/dL (33-37); MCV 91.5 FL (81-99); MONO# 1.28 X1000 (0.11-0.59); MONO% 11.8 % (1.7-9.3); MPV 10.9 FL (7.4-10.4); NEUT# 5.68 X1000 (1.4-6.5); NEUT% 52.5 % (42.2-75.2); PLT 155 X1000 (130-400); RBC 5.16 XMIL (4.7-6.1); RDW 14.7 % (11.5-14.5); WBC 10.81 X1000 (4.8-10.8)
[2019-09-06 06:53] LABS: AGAP 16; ALB/GLOB RATIO 0.7; ALBUMIN 2.7 g/dL (3.5-5.0); ALKALINE PHOSPHATASE 73 U/L (32-122); BUN 19 mg/dL (8-22); CALCIUM 8.8 mg/dL (8.8-10.2); CHLORIDE 101 mmol/L (98-107); COSMO 280; CREATININE 1.2 mg/dL (0.7-1.2); ESTIMATED GFR > 60; GLUCOSE 98 mg/dL (70-104); GOT 31 U/L (10-34); GPT 25 U/L (10-44); POTASSIUM 3.9 mmol/L (3.5-5.1); SODIUM 139 mmol/L (136-145); TCO2 22 mmol/L (25-35); TOTAL BILIRUBIN 0.88 mg/dL (0.20-1.00); TOTAL PROTEIN 6.4 g/dL (6.3-8.3)
[2019-09-06] MEDS: THERA M PLUS PO SCH (08:27)
[2019-09-06] MEDS: VITAMIN B-1 PO SCH (08:27)
--- NOTE | 2019-09-06 11:38 | PROGRESS NOTE ---
DATE: 09/06/2019 SUBJECTIVE: Mr. Nieto is moving his left leg and left arm well. On his right side, he is wiggling his toes on the right foot and moving a little bit the right hand and he does open his eyes, he is hearing me and he denies any pain at this point. OBJECTIVE: Vital signs: He remains afebrile, temperature 97.4 degrees, pulse 99, respirations 24 and blood pressure 133/111. Blood pressures have been 164/115, 138/110, 125/106, 146/110, 133/111. HEENT: Pupils are equal. Neck: No distended neck veins. Lungs: Clear in all lung shannon. Cardiovascular: Regular rhythm and rate without murmur or S3. Abdomen: Soft. Skin: Warm and dry. Urine output is almost 2000 mL. ASSESSMENT AND PLAN: 1. Large dominant left middle cerebral artery territory ischemic infarct with moderate hemorrhage transformation while he was on heparin. He has a dense right hemiparesis with evidence of global aphasia. Seems to be clinically stable. He needs close monitoring. He is off blood thinner, but he is more awake and easier to arouse. 2. He has a cardiomyopathy with a mural thrombus and eventually will have to have some anticoagulation. Prevented from doing that now with his hemorrhagic stroke. 3. Uncontrolled hypertension. At this point, permissive hypertension. Blood pressures look pretty optimal. 4. Elevated troponin on admission, probably from demand ischemia. His volume status looks good. LABORATORY DATA: Blood work today, white count 54422, hematocrit is 47, platelet count is 155,000. Chemistry: Sodium 139, potassium 3.9, chloride 101, BUN 19, creatinine 1.2, so renal function looks good. REVIEW OF HIS ORDERS: He is on multivitamin, getting Protonix 40 mg daily, and he is on thiamine 100 mg p.o. daily. He is on a low-salt, healthy heart diet. cc: Mateusz Oleary MD
[2019-09-07] MEDS: PROTONIX PO SCH (06:41)
[2019-09-07] MEDS: THERA M PLUS PO SCH (09:31)
[2019-09-07] MEDS: VITAMIN B-1 PO SCH (09:31)
--- NOTE | 2019-09-07 09:57 | PROGRESS NOTE ---
DATE: 09/07/2019 Mr. Nieto is moving his left side well. He opens his eyes, understands, hears and understands speech. He is not able to talk. His right arm is completely flaccid. Right foot he can wiggle his toes. OBJECTIVE: Vital Signs: He remains afebrile, temperature 97.1 degrees, pulse 85, respirations 22, blood pressure 144/108. HEENT: Pupils are equal and round. Lungs: Are clear in all lung shannon. Cardiovascular: Regular rhythm and rate without murmur or S3. Abdomen: Is soft. Skin: Is warm and dry. Urine output is 2000 mL. ASSESSMENT AND PLAN: 1. Large dominant left middle cerebral artery territory ischemic infarct with some moderate hemorrhage while on anticoagulation so we stopped the anticoagulation. Neurologically has seen some improvement, especially in his ability to his awareness. He still has global aphasia and had total paresis of his right arm and very little movement of his right leg, some movement of his right toes. 2. Cardiomyopathy with mural thrombus. At some point, we will have to anticoagulate. At this point we have no choice but to hold the anticoagulation. 3. Uncontrolled hypertension. Blood pressures have been diastolic running a little bit high, but otherwise we will leave these along with tolerant hypertension. He is on thiamine. cc: Mateusz Oleary MD
--- NOTE | 2019-09-07 15:26 | PROGRESS NOTE ---
DATE: 09/07/2019 Mr. Nieto has been gradually more alert and attentive. Family at the bedside reports he was very attentive to physical therapy earlier today. He has not spoken. He continues afebrile. Systolic blood pressures have ranged 120s-160s over the last 12 hours. WBC count is down to 10,810. He has chronic mild low bicarb level and nothing else remarkable on chemistry profile. He is getting thiamine. He does not have anything on his medication list that would likely contribute to encephalopathy. On exam, he is awake, alert, attentive. He seemed to make good effort at communication. When I asked him to hold up fingers, he raised his left hand, opened and closed his hand, pronated and supinated his hand but did not hold up fingers. He did not follow any simple commands. He did not speak. He did not blink with visual threat approaching from the right on brief testing. He moved his left arm and leg purposefully. He moved his right leg. I did not see right arm movement. Neck is supple. IMPRESSION: Dominant left hemisphere syndrome with initial acute ischemic infarction, subsequent conversion into hemorrhagic lesion, stable course over the last several days. There is no clinical evidence of increased intracranial pressure, new bleeding, new infarction. I do not have any new suggestion. I would continue holding anticoagulation at this point. We might repeat CT scan later to assess extent of hemorrhage. If he deteriorates, we will need more urgent repeat imaging. Thanks for asking neurology to see Mr. Nieto. cc: MD SAUNDRA Borden III
[2019-09-08] MEDS: PROTONIX PO SCH (06:14)
[2019-09-08] MEDS: THERA M PLUS PO SCH (08:12)
[2019-09-08] MEDS: VITAMIN B-1 PO SCH (08:12)
--- NOTE | 2019-09-08 10:03 | PROGRESS NOTE ---
DATE: 09/08/2019 OBJECTIVE: Mr. Nieto is awake,alert, attentive. He seemed to make some effort to speak, but I could not understand his words. He slightly protruded his tongue to command. He raised his left arm to command. He used his left arm purposefully. I did not see voluntary right arm movement. IMPRESSION: Dominant left hemisphere syndrome with imaging evidence of ischemic infarction and transformation into hemorrhagic lesion. Clinical course has been stable for several days. There is no evidence of increased intracranial pressure, expansion of hemorrhage or new infarction. He is more consistently alert and he was able to follow commands slightly better today than yesterday. I do not have any new thoughts or new suggestions from Neurology standpoint. I would continue to hold full anticoagulation at this point. We will need another noncontrast CT of the head electively before making further decisions. That scan could be done Wednesday and could be done sooner if he shows clinical change. Thanks for asking Neurology to see Mr. Nieto. cc: MD SAUNDRA Borden III
--- NOTE | 2019-09-08 11:01 | PROGRESS NOTE ---
DATE: 09/08/2019 SUBJECTIVE: Mr. rose is able to move, squeeze with his right hand. He is moving his right leg a little more proximally. He is awake and alert. He is able to swallow and feed himself this morning. OBJECTIVE: Vital Signs: Temp 96.9 degrees, pulse 85, respirations 27, blood pressure 133/101. HEENT: Pupils are equal and round. Lungs: Clear in all lung shannon. Cardiovascular: Regular rhythm and rate without murmur or S3. Abdomen: Soft. Skin: Warm and dry. Urine Output: 1400 mL. ASSESSMENT AND PLAN: 1. Continue present measures. He appears to be showing slow improvement. He has a large dominant left middle cerebral artery territory ischemic infarct with moderate hemorrhage. We stopped the anticoagulant. Clinically, he seems to be improving a little bit. Blood pressure is stable. 2. Cardiomyopathy with mural thrombus. Aware. 3. History of uncontrolled hypertension in the past. REVIEW OF ORDERS: So, I have reviewed his orders. Continue thiamine 100 mg a day, Protonix 40 mg a day, and multivitamin. Physical therapy and speech therapy involved. cc: Mateusz Oleary MD
[2019-09-09] MEDS: PROTONIX PO SCH (06:26)
[2019-09-09] MEDS: THERA M PLUS PO SCH (08:33)
[2019-09-09] MEDS: VITAMIN B-1 PO SCH (08:33)
--- NOTE | 2019-09-09 11:59 | PROGRESS NOTE ---
DATE: 09/09/2019 SUBJECTIVE: Mr. Nieto is doing much better. 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 He does move his toes and distal foot. Left side he is moving well. He is grunting but nbot to form words. He is able swallow. He understands what I am saying. They would like to move a floor, so we are going to move to a floor today. OBJECTIVE: Vital signs: Temperature 97.6 degrees, pulse 96, respirations 20, blood pressure 151/115. HEENT: Pupils are equal and round. Lungs: Clear in all lung shannon. Cardiovascular: Regular rhythm and rate without murmur or S3. Abdomen: Soft. Skin: Warm and dry. Urine output has been 1500 mL. ASSESSMENT AND PLAN: 1. Cerebrovascular accident followed by moderate hemorrhage in the left middle cerebral artery territory. Clinically, he is making improvement. Continue physical therapy and speech therapy. He can move to a floor. 2. Cardiomyopathy with thrombus. Eventually will have to go back on anticoagulant but I want to wait several weeks. 3. Blood pressure appears well controlled. We are tolerating elevated blood pressure. I think he would benefit from an ANGEL inhibitor and I am going to start him on lisinopril and we will just do 5 mg twice a day for now. cc: Mateusz Oleary MD MTDD
[2019-09-09] MEDS: PRINIVIL PO SCH (21:18)
[2019-09-10] MEDS: PROTONIX PO SCH (06:08)
[2019-09-10] MEDS: PRINIVIL PO SCH ×2 (08:15→21:41)
[2019-09-10] MEDS: VITAMIN B-1 PO SCH (08:15)
[2019-09-10] MEDS: THERA M PLUS PO SCH (08:15)
--- NOTE | 2019-09-10 15:49 | PROGRESS NOTE ---
DATE: 09/10/2019 SUBJECTIVE: Mr. Nieto is breathing comfortably, and he actually almost got out of bed. He is moving his right leg a little better attempting to squeeze my hand. He is still not able to form any words, but he can moan and groan. OBJECTIVE: General: He is awake and alert and is understanding what is said to him. Vital Signs: Temperature 98.4 degrees, pulse 106, respirations 25, blood pressure 176/132. HEENT: Visual shannon are full. He is swallowing good. Pupils are equal and round. LUNGS: Are clear in all lung shannon.Cardiovascular: Regular rhythm and rate without murmur or S3. Abdomen: Soft. Skin: Warm and dry. Extremities: He can move his right foot and toes and even move his ankle some. The rest of the right leg is flaccid and his right arm he is not able to move. ASSESSMENT AND PLAN: 1. Dominant left hemisphere syndrome. Imaging evidence of ischemic infarction and transformation and hemorrhagic lesion, so we have held the blood thinner. He has showed some improvement, so continue physical therapy and speech therapy. 2. He has a cardiomyopathy with a mural thrombus. So eventually we are going to have to anticoagulate. 3. Blood pressure is still running pretty high. I am going to go up on the lisinopril to 10 mg twice a day, and we will add Norvasc to that. I do want permissive hypertension, but his diastolic numbers are still pretty high. cc: Mateusz Oleary MD
[2019-09-11] MEDS: PROTONIX PO SCH (06:07)
[2019-09-11] MEDS: THERA M PLUS PO SCH (08:25)
[2019-09-11] MEDS: PRINIVIL PO SCH ×2 (08:25→20:38)
[2019-09-11] MEDS: VITAMIN B-1 PO SCH (08:25)
--- NOTE | 2019-09-11 08:47 | PROGRESS NOTE ---
DATE: 09/11/2019 SUBJECTIVE: Mr. Nieto is moving his right leg a little more. He is able to attempt some squeeze. He is formulating some words, and so seeing some improvement. He is moving his right foot and ankle well, and some movement in his leg. OBJECTIVE: Vital Signs: He remains afebrile with temperature 97.1 degrees, pulse 99, respirations 20, blood pressure 156/115. HEENT: Pupils are equal and round. Lungs: Lungs are clear in all lung shannon anterolateral. Cardiovascular exam: Regular rhythm and rate without murmur or S3. Abdomen: Soft. Skin: Warm and dry. ASSESSMENT AND PLAN: 1. Dominant left hemisphere cerebrovascular accident; it started out ischemic infarction and then transformation to mild hemorrhagic lesion. We had to stop his blood thinner, but he has shown clinical improvement. I think he would benefit from going to rehabilitation for both speech and physical therapy, and we will ask Social Service to help us find a place. 2. Cardiomyopathy with mural thrombus. At some point, we are going to have to reinitiate his anticoagulant. I would like to hold off another couple weeks. 3. Blood pressure has been running a little bit high. I have adjusted his blood pressure medicine up. I do not want to drop his pressure too much because of his recent cerebrovascular accident and hemorrhagic stroke, but he is on lisinopril 10 mg twice a day. I think I will go up to 20 mg twice a day, and instead maybe I will add Norvasc. We will try 2.5 mg twice a day in addition to lisinopril 10 mg twice a day. cc: Mateusz Oleary MD
[2019-09-11] MEDS: NORVASC PO SCH ×2 (11:29→20:38)
[2019-09-12] MEDS ORDERED: MORPHINE IV ONE (01:36)
[2019-09-12] MEDS: PROTONIX PO SCH ×2 (06:07→06:12)
[2019-09-12] MEDS: THERA M PLUS PO SCH (08:46)
[2019-09-12] MEDS: NORVASC PO SCH ×2 (08:46→23:35)
[2019-09-12] MEDS: PRINIVIL PO SCH ×2 (08:46→23:35)
[2019-09-12] MEDS: VITAMIN B-1 PO SCH (08:46)
--- NOTE | 2019-09-12 17:01 | PROGRESS NOTE ---
DATE: 09/12/2019 SUBJECTIVE: Mr. Nieto we sent him down to get an ultrasound, venous ultrasound of his leg. He did not have any DVT. It does look like he may have some peripheral vascular disease, but he did not want to pursue arterial studies. OBJECTIVE: Vital Signs: He remains afebrile, temperature 97.8 degrees, pulse 114, respirations 38, blood pressure 155/98. HEENT: Pupils are equal and round. Lungs: Clear in all lung shannon. Cardiovascular: Regular rhythm and rate without murmur or S3. Abdomen: Soft. Skin: Warm and dry. ASSESSMENT AND PLAN: 1. Dominant left hemisphere cerebrovascular accident, started off with ischemic infarction and transformation to mild hemorrhagic lesion. We stopped his blood thinner, and he has had some clinical improvement, although very slow, on his right side. He is moving his right leg a little better, still not much strength or acquisition analyst strength in his right arm. His right arm is flaccid. 2. Cardiomyopathy with mural thrombus. At some point, we are going to have to give him anticoagulants, but at this point we had no choice but to hold it. 3. Watching his blood pressures, diastolic is still running high. I have titrated up the medicine to see if it will help. He is on Norvasc 2.5 mg twice daily. I will increase that to 5 mg b.i.d. He is on Prinivil 10 mg twice a day. We are giving him thiamine 100 mg daily. Continue physical therapy and speech therapy. I do not know that he will be eligible for inpatient rehab or even home health, so continue therapy while we are here and try and formulate discharge plans. cc: Mateusz Oleary MD
[2019-09-13] MEDS ORDERED: MORPHINE IV ONE (00:39)
[2019-09-13] MEDS: PROTONIX PO SCH ×2 (05:24→06:22)
[2019-09-13 06:02] LABS: BASO# 0.05 X1000 (0.0-0.2); BASO% 0.2 % (0.0-0.8); HEMATOCRIT 47.7 % (42.0-52.0); HEMOGLOBIN 15.7 g/dL (14.0-18.0); IMM GRAN# 0.09 X1000 (0.0-0.04); IMM GRAN% 0.3 % (0.0-0.5); LYMPH# 3.27 X1000 (1.2-3.4); LYMPH% 12.3 % (20.5-51.1); MCH 29.7 PG (27-31); MCHC 32.9 g/dL (33-37); MCV 90.3 FL (81-99); MONO# 2.39 X1000 (0.11-0.59); MPV 10.3 FL (7.4-10.4); NEUT# 20.85 X1000 (1.4-6.5); NEUT% 78.2 % (42.2-75.2); PLT 255 X1000 (130-400); RBC 5.28 XMIL (4.7-6.1); RDW 15.2 % (11.5-14.5); WBC 26.65 X1000 (4.8-10.8)
[2019-09-13 06:06] LABS: INR 1.37; PROTIME 17.2 Seconds (11.0-16.0)
[2019-09-13 06:07] LABS: PTT 33.9 Seconds (22.3-41.8)
[2019-09-13 06:14] LABS: URINE SOURCE CATH
[2019-09-13 06:22] LABS: BILIRUBIN URINE SMALL (NEGATIVE); BLOOD URINE LARGE (NEGATIVE); COLOR YELLOW; GLUCOSE URINE NEGATIVE (NEGATIVE); KETONE URINE NEGATIVE (NEGATIVE); LEUKOCYTES URINE NEGATIVE (NEGATIVE); NITRITE URINE NEGATIVE (NEGATIVE); PH URINE 6.5; PROTEIN URINE >600 mg/dL (NEGATIVE); SP GRAVITY URINE 1.037; TURBIDITY URINE CLEAR (CLEAR); UROBILINOGEN URINE 4 mg/dL (NORMAL)
[2019-09-13 06:31] LABS: UR EPITHELIAL CELLS <10 /HPF (<10); URINE BACTERIA NEGATIVE /HPF; URINE RBC 20-40 /HPF (<10); URINE WBC <10 /HPF (<10)
[2019-09-13 06:34] LABS: AGAP 15; ALB/GLOB RATIO 0.9; ALBUMIN 3.2 g/dL (3.5-5.0); ALKALINE PHOSPHATASE 93 U/L (32-122); BUN 23 mg/dL (8-22); CALCIUM 8.9 mg/dL (8.8-10.2); CHLORIDE 96 mmol/L (98-107); COSMO 266; CREATININE 1.1 mg/dL (0.7-1.2); ESTIMATED GFR > 60; GLUCOSE 129 mg/dL (70-104); GOT 225 U/L (10-34); GPT 78 U/L (10-44); POTASSIUM 4.4 mmol/L (3.5-5.1); SODIUM 130 mmol/L (136-145); TCO2 19 mmol/L (25-35); TOTAL PROTEIN 6.7 g/dL (6.3-8.3)
[2019-09-13 06:58] LABS: CK PROFILE 13181 U/L (24-204)
--- NOTE | 2019-09-13 07:05 | Diag Imaging Result Doc PS360 ---
EXAM: CHEST-1 VIEW 09/13/2019 HISTORY: sepsis protocol TECHNIQUE: AP portable at 0517 COMMENT: There is cardiomegaly. The inspiration is suboptimal and less optimal than on 09/01/2019. Otherwise are has been no significant change. IMPRESSION: Stable chest. Electronically signed by Brenton Dey 09/13/2019 7:03 AM
[2019-09-13 07:30] LABS: CK INDEX 0.4 (0.0-2.5); CK-MB 56.99 ng/mL (0.0-5.0)
[2019-09-13 07:57] LABS: BANDS 6 % (0-1); LYMPHS 12 % (21-51); MONO 2 % (1-9); SEGS 80 % (42-75)
[2019-09-13 08:18] LABS: URINE CASTS GRANULAR PRESENT
[2019-09-13] MEDS ORDERED: DUONEB (A & A) INH PRN (08:48)
[2019-09-13] MEDS ORDERED: MILK OF MAGNESIA PO PRN (08:50)
[2019-09-13] MEDS ORDERED: DULCOLAX PR PRN (08:50)
--- NOTE | 2019-09-13 09:24 | PROGRESS NOTE ---
DATE: 09/13/2019 SUBJECTIVE: Mr. Nieto is more restless. He has got a cough. He did have a little bit of fever. Concerned about maybe some aspiration pneumonitis. He is breathing more comfortably now, but he is pretty uncomfortable. We will try and give him some tramadol and use some morphine if needed. He still has no movement out of his arm, very little out of his leg. He can wiggle some of his toes on the right side. He is understanding what we are saying, and he can shake his head and he is able to swallow. They have not noticed any trouble with swallowing. OBJECTIVE: Vital Signs: Pulse 100, respirations 30, blood pressure 150/110. Eyes: Pupils are equal and round. Neck: No distended neck veins. Lungs: Lungs are clear in all lung shannon. Cardiovascular exam: Regular rhythm and rate without murmur or S3. Abdomen: Abdomen is soft. Skin: Skin is warm and dry. ASSESSMENT AND PLAN: Chest x-ray from this morning stable with cardiomegaly. I do not see any infiltrate. I am going to go ahead and put him on some Rocephin, give him some for his bowels as he is constipated. Try some milk of magnesia. Continue physical therapy and occupational therapy. We have gone up on his blood pressure medicines slowly. His diastolic pressure is still running a little bit high. He is on lisinopril 10 mg twice a day and amlodipine 5 mg twice daily. I have started him on ceftriaxone 2 grams intravenous every 24 hours. He is getting his thiamine 100 mg daily, and we will try the tramadol to help with some pain, morphine for severe pain, help him get comfortable. We will do the DuoNebs every 2 hours as needed. cc: Mateusz Oleary MD
[2019-09-13] MEDS: ULTRAM PO PRN ×2 (09:34→16:58)
[2019-09-13] MEDS: PRINIVIL PO SCH ×3 (09:35→20:09)
[2019-09-13] MEDS: NORVASC PO SCH ×2 (09:35→19:59)
[2019-09-13] MEDS: THERA M PLUS PO SCH (09:35)
[2019-09-13] MEDS: ROCEPHIN 2 GM in NS 50 ML IV SCH (09:35)
[2019-09-13] MEDS: VITAMIN B-1 PO SCH (09:49)
[2019-09-13] MEDS: DUONEB (A & A) INH SCH ×4 (10:57→23:43)
--- NOTE | 2019-09-13 11:10 | Diag Imaging Result Doc PS360 ---
EXAM: CHEST-PORTABLE 09/13/2019 HISTORY: elevated temp/wbc TECHNIQUE: Portable semiupright chest COMMENT: There is cardiomegaly. The lungs appear to be clear and unchanged since 09/13/2019 at 0517. IMPRESSION: Stable chest. Electronically signed by Brenton Dey 09/13/2019 11:08 AM
--- NOTE | 2019-09-13 15:32 | PROGRESS NOTE ---
DATE: 09/13/2019 SUBJECTIVE: Mr. Nieto has continued stable course neurologically. OBJECTIVE: On exam today, he is awake, alert, attentive. He communicated with gestures. He mimicked better today than several days ago. He continues globally dysphasic, unable to follow simple commands. He did not speak to me. IMPRESSION: Dominant left hemisphere infarction, subsequent hemorrhage into the area of infarction, stable course clinically. No clinical evidence of further bleeding, extension of infarct or new problem. At this point, I think we can consider resuming his anticoagulation. I will first order noncontrast CT to make sure there is not evidence of further bleeding or new infarction that would contraindicate anticoagulation. Thanks for asking Neurology to see Mr. Nieto. cc: Enzo Simon III, MD MTDD
[2019-09-13] MEDS: MORPHINE IV PRN (19:59)
--- NOTE | 2019-09-13 22:06 | Diag Imaging Result Doc PS360 ---
EXAM: CT HEAD W/O CONTRAST INDICATION: evaluate left hemisphere hemorrhage, infarct TECHNIQUE: This exam was performed using automated exposure control, adjustment of mA or kV according to patient size, and/or use of iterative reconstruction technique. COMPARISON: 09/05/2019 FINDINGS: There is a known aging left basal ganglion parenchymal hematoma. The blood is less dense than the previous study and the surrounding vasogenic edema has slightly decreased. However, there is still significant surrounding vasogenic edema and there is only slightly less effacement of the left lateral ventricle as compared to the previous study. There is adjacent cortical hyperdensity at the insula indicating laminar necrosis. There is stable encephalomalacia involving the right parietal lobe, left occipital lobe, and left parietal lobe. There is a stable chronic lacunar infarct involving the caudate head on the right. No new infarcts are identified. The surrounding soft tissues and bony structures are essentially unremarkable. IMPRESSION: 1.Evolving subacute hemorrhagic infarct involving the left basal ganglion with signs of insular laminar necrosis. 2.Multifocal encephalomalacia is stable. Electronically signed by Joseph Tirado 09/13/2019 10:04 PM
[2019-09-13] MEDS ORDERED: APRESOLINE IV ONE (22:53)
[2019-09-13] MEDS ORDERED: TYLENOL PO PRN (23:01)
[2019-09-14] MEDS: DUONEB (A & A) INH SCH ×6 (03:28→23:07)
[2019-09-14] MEDS: PROTONIX PO SCH (06:08)
[2019-09-14] MEDS: THERA M PLUS PO SCH (08:12)
[2019-09-14] MEDS: PRINIVIL PO SCH ×2 (08:12→21:19)
[2019-09-14] MEDS: NORVASC PO SCH ×2 (08:12→21:19)
[2019-09-14] MEDS: VITAMIN B-1 PO SCH (08:12)
[2019-09-14] MEDS: ROCEPHIN 2 GM in NS 50 ML IV SCH (08:12)
--- NOTE | 2019-09-14 10:38 | PROGRESS NOTE ---
DATE: 09/14/2019 SUBJECTIVE: Mr. Nieto is sleeping. He had eaten a good amount of his breakfast. He still has Berrios catheter in and we are going to take the Berrios catheter out. He has not much more motor activity in his right arm or leg. OBJECTIVE: Vital signs: Temperature 98.4 degrees, pulse 110, respirations 16, blood pressure 137/101. HEENT: Pupils are equal and round. Lungs: Clear in all lung shannon. Cardiovascular: Regular rhythm and rate without murmur or S3. Input and Output: Urine output is 1500 mL. IMAGING: Head CT done yesterday evolving subacute hemorrhagic infarct involving left basilar ganglia and signs of laminar necrosis, multifocal encephalomalacia which is stable. ASSESSMENT AND PLAN: He has a dominant left hemisphere infarction and subsequent images, a hemorrhage to the area of infarction. Stable course. We will take out his Berrios catheter. Discharge plans are going to be complicated. He really does not have much option but other than to go home and they may need to reconsider his anticoagulation. He does have dilated cardiomyopathy with a mural thrombus. The CT of his head was done yesterday and we may want to hold off on anticoagulation for another couple weeks. HIS ORDERS: I do not see any change. He has had hypertension, blood pressure seems to be coming down nice. cc: Mateusz Oleary MD
[2019-09-14] MEDS: ULTRAM PO PRN (10:56)
--- NOTE | 2019-09-14 13:40 | PROGRESS NOTE ---
DATE: 09/14/2019 Mr. Nieto looks about the same clinically. He remains awake, alert, attentive. He continues globally dysphasic. There is no new neurologic deficit. Follow-up CT yesterday showed stable findings regarding the recent ischemic infarction and hemorrhage. There is no evidence of new bleeding or of new infarction. There continues to be some evidence of mass effect, but that is a little bit improved. At this point, I think we can consider cautiously resuming his anticoagulation. I discussed with his bulk truck driver at the bedside (she identified herself as his ), and she understands the risk for bleeding with resumption of anticoagulation and the risk for recurrent ischemic stroke without anticoagulation. Thanks for asking Neurology to see Mr. Nieto. cc: MD SAUNDRA Borden III
[2019-09-14 15:25] LABS: ALLEN TEST YES; BE 0.7 mmoll (-3.0-3.0); BLOOD TYPE ARTERIAL; HCO3-(ACT) 25.4 mmoll (20.0-26.0); O2(CT) 22.1 mL/dL (15.0-23.0); O2HB 95.2 % (95.0-99.0); PCO2(98.6) 27 mmHg (35-45); PO2(98.6) 84 mmHg (60-100); SAMPLE BLOOD; SAO2 98.3 % (95.0-100.0); THB 16.5 g/dL (11.5-17.4); pH(98.6) 7.52 (7.35-7.45)
--- NOTE | 2019-09-14 15:25 | EKG Report ---
Test Performed on : 09/14/2019 3:16:40 PM Test Reason : CAT CALL Blood Pressure : / mmHG Vent. Rate : 108 BPM Atrial Rate : 108 BPM P-R Int : 160 ms QRS Dur : 096 ms QT Int : 372 ms P-R-T Axes : 070 -58 081 degrees QTc Int : 498 ms Sinus tachycardia. Biatrial enlargement Left axis deviation Inferior infarct (cited on or before 23-AUG-2019) Anterior infarct , age undetermined Abnormal ECG When compared with ECG of 01-SEP-2019 12:31, (Unconfirmed) ST no longer depressed in Lateral leads T wave inversion less evident in Lateral leads Confirmed by Jose Armando DANIEL, Erick Quintero ([id number]) on 09/15/2019 7:02:44 PM
[2019-09-14 15:29] LABS: MODALITY ROOM AIR
[2019-09-14 15:36] LABS: BASO# 0.06 X1000 (0.0-0.2); BASO% 0.2 % (0.0-0.8); EOS# 0.05 X1000 (0.0-0.7); EOS% 0.2 % (0.0-10.0); HEMATOCRIT 47.5 % (42.0-52.0); HEMOGLOBIN 15.6 g/dL (14.0-18.0); IMM GRAN# 0.12 X1000 (0.0-0.04); IMM GRAN% 0.4 % (0.0-0.5); LYMPH# 2.45 X1000 (1.2-3.4); LYMPH% 8.5 % (20.5-51.1); MCH 29.7 PG (27-31); MCHC 32.8 g/dL (33-37); MCV 90.3 FL (81-99); MONO# 2.67 X1000 (0.11-0.59); MONO% 9.2 % (1.7-9.3); MPV 9.8 FL (7.4-10.4); NEUT# 23.58 X1000 (1.4-6.5); NEUT% 81.5 % (42.2-75.2); PLT 244 X1000 (130-400); RBC 5.26 XMIL (4.7-6.1); RDW 15.6 % (11.5-14.5); WBC 28.93 X1000 (4.8-10.8)
[2019-09-14 15:59] LABS: LYMPHS 13 % (21-51); MONO 11 % (1-9); SEGS 76 % (42-75)
[2019-09-14 16:01] LABS: AGAP 13; BUN 24 mg/dL (8-22); CALCIUM 9.1 mg/dL (8.8-10.2); CHLORIDE 96 mmol/L (98-107); COSMO 270; CREATININE 0.9 mg/dL (0.7-1.2); ESTIMATED GFR > 60; GLUCOSE 122 mg/dL (70-104); POTASSIUM 4.2 mmol/L (3.5-5.1); SODIUM 132 mmol/L (136-145); TCO2 23 mmol/L (25-35)
--- NOTE | 2019-09-14 16:02 | Diag Imaging Result Doc PS360 ---
EXAM: CT HEAD W/O CONTRAST 09/14/2019 HISTORY: ams TECHNIQUE: This exam was performed using automated exposure control, adjustment of mA or kV according to patient size, and/or use of iterative reconstruction technique. COMMENT: There is an apparent evolving infarction involving the insula and basal ganglia on the left with cytotoxic edema and shift of the midline structures to the right. The shift is less than 3 mm currently which has decreased somewhat since the previous study of 09/13/2019 at which time it was over 3 mm. There is hyperdensity along the insular cortex and in the basal ganglia consistent with laminar necrosis and hemorrhagic infarct. This was also present at the time the previous study. There is chronic encephalomalacic change in the occipital lobe on the left and the posterior parietal lobe on the right. The visualized paranasal sinuses are clear. The calvarium is intact. IMPRESSION: Subacute infarction in the insula and basal ganglia on the left as described above with slightly improved mass effect compared to 09/13/2019. Electronically signed by Brenton Dey 09/14/2019 3:59 PM
--- NOTE | 2019-09-14 17:53 | PROGRESS NOTE ---
DATE: 09/14/2019 SUBJECTIVE: About 3:30 or 3:20 this afternoon he developed Kussmaul breathing. He appeared flaccid on his left side and he was lethargic, altered mental status. He has remained afebrile. We took him down for a CT scan without contrast and that was done, that was about 3:50 p.m., and he had a subacute infarction in the insula and basal ganglia of the left, as described above, slightly improved mass effect compared to 09/13/2019. My concern is that he has had more emboli, probably from the mural thrombus. He had a venous study done yesterday and apparently there is some venous thrombosis as well. OBJECTIVE: Neurologic: He is moving his left side again and he is answering yes or no and seems neurologically to be back to where he was this morning. Vital signs: Temp 99.5 degrees, pulse was 100, respirations 20, blood pressure 130/1104. HEENT: His pupils are equal. Neck: Supple. Lungs: Clear anterior and lateral. Cardiovascular: Regular rhythm and rate without murmur or S3. Abdomen: Soft. Skin: Warm and dry. ASSESSMENT AND PLAN: 1. CT scan yesterday showed some stable findings regarding recent ischemic infarction. No evidence of new bleeding or new infarction. This new CAT scan suggest improvement in the mass effect, but it suggests a subacute infarction in the insulin and basal ganglia on the left with slightly improved mass effect. I do not see new areas of involvement and nothing on the right. However, concerned that he has thrown emboli. I am going to put him on anticoagulant. I think we have to go ahead and treat, we have 2 reasons. One is the venous thrombus, but the other is the mural thrombus. 2. He has a severe dilated cardiomyopathy with a mural thrombus. 3. Blood pressures. We are going to tolerate higher pressures, but I have tried to get his diastolic down a little bit. I have him on Norvasc 5 mg twice a day and lisinopril 10 mg twice a day. I have explained the risks to the family. They understand that if he develops hemorrhagic stroke it could be very bad but also if he throws more emboli, it could also be a very bad situation and they understand the risk. I have also explained that we have called [facility] in [place] and they do not feel like they can do anything that we are not doing and have not wanted to transfer. One additional concern is that when we did the venous ultrasound, his arterial flow in his legs was not good and so I suspect he has significant peripheral vascular disease. LABORATORY: Review of his lab. His white count is still elevated. I do not see any infiltrate on x-ray, but I have had him on some antibiotics. We are concerned about aspiration. He is getting 2 g of ceftriaxone IV q.24 hours. I am going to continue his thiamine. cc: Mateusz Oleary MD
--- NOTE | 2019-09-14 18:11 | Extremity Venous Study ---
PROCEDURE NAME: Venous U/S Right Leg - 09/12/2019 GRAIN BROKER: Juan A. REQUESTING PHYSICIAN: LILIANA Gregg. INDICATIONS: Leg pain. GRAIN BROKER NOTE: 1. The patient was somewhat uncooperative with the exam, limiting the exam. 2. There was also some arterial abnormality that was incidentally noted. Dr. Oleary was notified. However, the patient refused dedicated arterial evaluation. FINDINGS: Examining the venous system of the right lower extremity, the vessels were compressible with forward flow with no evidence of intraluminal thrombus. SUMMARY: No deep or superficial venous thrombosis seen in the right lower extremity. cc: MD Adam Yeung CRNP
[2019-09-14] MEDS: LOVENOX SUBQ SCH (18:35)
[2019-09-14] MEDS: MORPHINE IV PRN (21:17)
[2019-09-15] MEDS: ULTRAM PO PRN ×2 (02:30→16:48)
[2019-09-15] MEDS: MORPHINE IV PRN ×3 (03:36→20:56)
[2019-09-15] MEDS: DUONEB (A & A) INH SCH ×6 (03:45→23:20)
[2019-09-15 04:39] LABS: BASO# 0.08 X1000 (0.0-0.2); BASO% 0.3 % (0.0-0.8); EOS# 0.11 X1000 (0.0-0.7); EOS% 0.4 % (0.0-10.0); HEMATOCRIT 46.5 % (42.0-52.0); HEMOGLOBIN 15.3 g/dL (14.0-18.0); IMM GRAN% 0.3 % (0.0-0.5); MCH 29.7 PG (27-31); MCHC 32.9 g/dL (33-37); MCV 90.3 FL (81-99); MONO# 2.58 X1000 (0.11-0.59); MONO% 8.6 % (1.7-9.3); MPV 10.8 FL (7.4-10.4); NEUT# 24.09 X1000 (1.4-6.5); NEUT% 80.4 % (42.2-75.2); PLT 265 X1000 (130-400); RBC 5.15 XMIL (4.7-6.1); RDW 16.3 % (11.5-14.5); WBC 29.96 X1000 (4.8-10.8)
[2019-09-15] MEDS: PROTONIX PO SCH ×2 (05:51→06:31)
[2019-09-15] MEDS: LOVENOX SUBQ SCH (05:51)
--- NOTE | 2019-09-15 07:06 | Diag Imaging Result Doc PS360 ---
EXAM: CHEST-PORTABLE 09/15/2019 HISTORY: aspiration TECHNIQUE: AP portable at 0453 COMMENT: There is cardiomegaly. Compared to 09/13/2019 there has been no significant change. IMPRESSION: Cardiomegaly. Electronically signed by Brenton Dey 09/15/2019 7:04 AM
[2019-09-15 09:11] LABS: BUN 19 mg/dL (8-22)
[2019-09-15 09:42] LABS: AGAP 16; CALCIUM 8.8 mg/dL (8.8-10.2); CHLORIDE 101 mmol/L (98-107); COSMO 278; CREATININE 0.8 mg/dL (0.7-1.2); GLUCOSE 100 mg/dL (70-104); MAGNESIUM 1.9 mg/dL (1.5-2.7); POTASSIUM 4.3 mmol/L (3.5-5.1); SODIUM 138 mmol/L (136-145); TCO2 21 mmol/L (25-35)
[2019-09-15] MEDS: VITAMIN B-1 PO SCH (10:12)
[2019-09-15] MEDS: PRINIVIL PO SCH ×2 (10:12→20:55)
[2019-09-15] MEDS: THERA M PLUS PO SCH (10:12)
[2019-09-15] MEDS: COREG PO SCH ×2 (10:12→20:54)
[2019-09-15] MEDS: ROCEPHIN 2 GM in NS 50 ML IV SCH (10:59)
--- NOTE | 2019-09-15 13:54 | PROGRESS NOTE ---
DATE: 09/15/2019 SUBJECTIVE: Mr. Niteo had been stable for a week or so and then yesterday seemed abruptly less attentive with some mouth puckering, teeth clenched, not using left arm spontaneously. reports this lasted for about 20 minutes. She believes that he was awake during the episode, but I cannot confirm alertness. He was transferred to ICU. Course has been stable since then with no further episodes. OBJECTIVE: On my exam now, he seems to be back to his baseline of yesterday before the episode. He is awake, alert, attentive, attempting to communicate, but unable to use language. He did not speak. He used his left arm and leg purposefully. He moved his left arm very well spontaneously. He mimicked with the left arm. He did not move his right arm purposefully. Neck is supple. DIAGNOSTIC DATA: Urgent noncontrast CT obtained after his clinical change yesterday looks about the same as scan from the day before. There is old right posterior encephalomalacia, more recent left sided infarction, continued improvement in the area of hemorrhage. IMPRESSION AND PLAN: 1. I do not have a definite explanation for episode yesterday. He might have had a seizure. There is concern for new right hemisphere infarction, but I do not see evidence of that now clinically or on CT. We might repeat imaging later, but that will not be urgent as long as he is stable and improving. EEG is ordered today. 2. Old dominant left hemisphere infarction and hemorrhage appear stable. 3. Dilemma remains regarding resuming anticoagulation or continuing to follow without anticoagulation. Yesterday, I thought resuming anticoagulation would be reasonable. Today, I am going to recommend that we wait a little bit longer and see what we find out about this episode yesterday. Thanks for asking Neurology to see Mr. Nieto. cc: MD SAUNDRA Borden III
--- NOTE | 2019-09-15 16:58 | PROGRESS NOTE ---
DATE: 09/15/2019 INTERVAL HISTORY: Patient with odd episodes yesterday of decreased responsiveness and possible flaccidity of his left side, which has been his good side thus far. This appeared to have resolved spontaneously. There was no clear seizure activity, and repeat CT head actually showed slightly improved edema with no other acute issue. This has not repeated itself. Otherwise, patient's mental status is approximately stable. REVIEW OF SYSTEMS: Unable to obtain secondary to patient's mental status. LABORATORY: WBC 29.9, hemoglobin 15.3, hematocrit 46.5, platelets 265,000. Sodium 138, potassium 4.3, BUN 19, creatinine 0.8. IMAGING: Chest x-ray with stable cardiomegaly, but no acute change. CT head yesterday with slightly improved edema and mass effect. Stable subacute infarction of the insula and basal ganglia, but no new process. VITALS: Temperature max 99.5 degrees, pulse 93, respirations 20, blood pressure 120/108, O2 saturation 97% on 2 L by nasal cannula. PHYSICAL EXAMINATION: General: No acute distress. Vitals: As above. HEENT: Normocephalic, atraumatic. Moist mucous membranes. No cervical adenopathy. Cardiovascular: Regular rate and rhythm. No murmurs noted. Pulmonary: Clear to auscultation bilaterally. No wheezing, rales, or rhonchi. Abdomen: Soft, nontender, nondistended. Bowel sounds positive. Extremities: Peripheral pulses intact. No clubbing or cyanosis. Neurologic: Patient with ongoing flaccid paralysis of the right side. Does move his left side fairly well. Will usually follow commands with the left hand, does not always, but it is unclear to me whether this is because he does not understand the command or just does not feel like following the command. Patient remains nonverbal. Face symmetric. No new focal deficits. Psychiatric: Patient awake, alert, follows commands fairly well, although not 100%. Remains nonverbal, so unable to assess orientation. ASSESSMENT AND PLAN: 1. Ischemic and hemorrhagic strokes. Patient initially with ischemic stroke, then later with a small intraparenchymal hemorrhage. All this is now stable, but odd episode yesterday with unresponsiveness and possible flaccidity of the opposite side of what he has had previously. Ongoing aphasia and right hemiparesis which is stable. Nothing that really sounds like seizure activity, but Neurology on board and getting EEG just to make sure that what he had yesterday was not some kind of partial seizure. Initially, Neurology recommended putting him back on his anticoagulation, but they now recommend holding that, so we will hold Lovenox and monitor. 2. Left ventricular thrombus. Off anticoagulation currently as above. We will restart anticoagulation once it is okay with Neurology. 3. Chronic systolic congestive heart failure, last ejection fraction 10%. The patient is on ANGEL inhibitor. We will restart Coreg and monitor. No sign of significant volume overload at this time. 4. Hypertension. Reasonable control thus far. Continue his heart failure medications and monitor. 5. Elevated troponin. Likely chronic from his severe systolic congestive heart failure, but no baseline to compare to. No pathologic EKG changes, but will repeat the troponin to make sure it is not trending up.
--- NOTE | 2019-09-15 23:18 | EEG REPORT ---
DATE: 09/15/2019 COMMENT: This is a digitally recorded EEG on a 38-year-old patient with recent dominant left hemisphere infarction, subsequent hemorrhagic conversion in that lesion, episode of decreased responsiveness yesterday, raising question of seizure. FINDINGS: During waking, polymorphic and rhythmic theta frequencies are present across the frontal and central regions bilaterally. Slowing into the delta range is more prominent on the left at 3 hertz. There is poorly sustained 7 Hz posterior rhythm on the right and posterior dominant rhythm is not identified on the left. There was no sleep recorded. Photic stimulation did not significantly alter the record. EKG and movement artifacts were present, but did not hinder interpretation. No definite epileptiform discharge was identified. INTERPRETATION: Abnormal EEG because of generalized slowing and more prominent slowing over the left hemisphere. CORRELATION: This is indicative of a diffuse encephalopathy with additional focal disturbance of electrical cortical activity in the left hemisphere correlating with the known recent infarction. The absence of epileptiform discharges on a single EEG does not exclude a clinical diagnosis of seizure, but there is nothing on this record to suggest increased tendency to seizure. cc: MD SAUNDRA Borden III
[2019-09-16] MEDS: DUONEB (A & A) INH SCH ×6 (03:15→23:17)
[2019-09-16] MEDS: PROTONIX PO SCH (06:00)
[2019-09-16] MEDS: ULTRAM PO PRN ×2 (06:00→20:26)
[2019-09-16 06:16] LABS: BASO# 0.04 X1000 (0.0-0.2); BASO% 0.2 % (0.0-0.8); EOS# 0.08 X1000 (0.0-0.7); EOS% 0.4 % (0.0-10.0); HEMATOCRIT 46.6 % (42.0-52.0); HEMOGLOBIN 15.2 g/dL (14.0-18.0); IMM GRAN# 0.07 X1000 (0.0-0.04); IMM GRAN% 0.3 % (0.0-0.5); LYMPH# 2.02 X1000 (1.2-3.4); LYMPH% 9.6 % (20.5-51.1); MCH 29.8 PG (27-31); MCHC 32.6 g/dL (33-37); MCV 91.4 FL (81-99); MONO# 1.54 X1000 (0.11-0.59); MONO% 7.3 % (1.7-9.3); NEUT# 17.26 X1000 (1.4-6.5); NEUT% 82.2 % (42.2-75.2); PLT 246 X1000 (130-400); RDW 15.4 % (11.5-14.5); WBC 21.01 X1000 (4.8-10.8)
[2019-09-16 06:41] LABS: AGAP 15; BUN 22 mg/dL (8-22); CALCIUM 8.7 mg/dL (8.8-10.2); CHLORIDE 98 mmol/L (98-107); COSMO 275; CREATININE 0.7 mg/dL (0.7-1.2); ESTIMATED GFR > 60; GLUCOSE 126 mg/dL (70-104); POTASSIUM 4.4 mmol/L (3.5-5.1); SODIUM 135 mmol/L (136-145); TCO2 22 mmol/L (25-35)
[2019-09-16 06:47] LABS: LYMPHS 10 % (21-51); MONO 2 % (1-9); SEGS 88 % (42-75)
[2019-09-16] MEDS: PRINIVIL PO SCH ×2 (09:23→20:27)
[2019-09-16] MEDS: VITAMIN B-1 PO SCH (09:23)
[2019-09-16] MEDS: COREG PO SCH ×2 (09:23→20:27)
[2019-09-16] MEDS: THERA M PLUS PO SCH (09:23)
[2019-09-16] MEDS: ROCEPHIN 2 GM in NS 50 ML IV SCH (09:23)
[2019-09-16] MEDS: MORPHINE IV PRN ×2 (11:28→17:47)
[2019-09-16] MEDS: LOVENOX SUBQ SCH (16:45)
--- NOTE | 2019-09-16 22:25 | PROGRESS NOTE ---
DATE: 09/16/2019 INTERVAL HISTORY: The patient is essentially stable. Still nonverbal with no movement of the right side. Still only intermittently following commands. Still with poor pulses in the right lower extremity. REVIEW OF SYSTEMS: Unable to obtain secondary to patient mental status. LABS: WBC 21.0, hemoglobin 15.2, hematocrit 46.6, platelets 246,000. Sodium 135, potassium 4.4, BUN 22, creatinine 0.7, glucose 126. Troponin 169, which is down from 202. VITALS: Temperature T-max 99.4 degrees, pulse 96, respirations 24, blood pressure 121/94, O2 saturation 97% on 2 L by nasal cannula. PHYSICAL EXAMINATION: General: No acute distress. Vitals: As above. HEENT: Normocephalic, atraumatic. Moist mucous membranes. No cervical adenopathy. Cardiovascular: Regular rate and rhythm. No murmurs noted. Pulmonary: Clear to auscultation bilaterally. No wheezing, rales, or rhonchi. Abdomen: Soft, nontender, nondistended. Bowel sounds positive. Extremities: Peripheral pulses intact on the left, markedly decreased on the right in the right foot. I cannot find a dorsalis pedis at all. Posterior tibial is quite weak. The right distal leg is cool, although capillary refill is okay. Trace pitting edema anteriorly but calf is quite tight on the right. Neurologic: The patient remains nonverbal. Occasional purposeful movement of the left side but not really following commands for me this morning. Right hemiparesis, stable. Psychiatric: The patient is asleep but arousable, not following commands for me quite as well today, but was reportedly doing fairly well with nursing earlier. ASSESSMENT AND PLAN: 1. Ischemic and hemorrhagic strokes. The patient initially with ischemic stroke, then later with small intraparenchymal hemorrhage. All this now stable and edema improving on last CT. One episode a couple days ago with unresponsiveness and possible flaccidity of the left side, which had been previously unaffected, but this resolved spontaneously. No clear cause was ever found. EEG performed and shows diffuse encephalopathy with no clear epileptiform discharges. Neurology on board and awaiting further recommendations from them. They were initially okay with putting back on his anticoagulation but they have now recommended holding that, so we are holding Lovenox currently. 2. Chronic systolic congestive heart failure, last ejection fraction 10%. The patient on ANGEL inhibitor and Coreg. No sign of significant volume overload so far. 3. Left ventricular thrombus. He is off anticoagulation currently. Restart anticoagulation once okay with Neurology. 4. Right calf swelling and poor pulses in the right foot. Initial concern was for deep venous thrombosis, but venous ultrasound showed no evidence of thrombus. There was an incidental note of some kind of arterial abnormality that was poorly defined. Patient was not cooperative at that time but, seeing as how he has little to no movement on the right, we will try to repeat an arterial ultrasound to see if we can better define what is going on with his right leg. 5. Hypertension. Reasonable control so far. Continue heart failure medications and monitor. 6. Elevated troponin, likely chronic from his severe systolic congestive heart failure and trended down. No sign of acute coronary syndrome. 7. Disposition. Given both ischemic and hemorrhagic stroke, as well as intracardiac thrombus, severe systolic heart failure, overall long-term prognosis is poor. We will see what he does over the next few days. addendum: due to cool R leg with poor/absent pulses, I ordered arterial doppler. called by vascular as apparently a arterial doppler was already done and showed extensive arterial and venous clots. on reassessment patient's leg cooler, capillary refill worse in the toes. discussed with surgery(Dr. Lara) who evaluated the patient and the ultrasound images. He thinks it is unlikely to be amenable to surgical intervention and will likely end up requiring amputation but will obtain CTA to better evaluate the vessels in the leg and will discuss with Dr. Westbrook. Discussed with family and patient placed back on anticoagulation. family aware of the risk regarding repeat intracranial bleed and in agreement. Patient's surgical risk would be quite high, especially for a vascular procedure. SAUNDRA
[2019-09-16 22:52] LABS: URINE SOURCE CATH
[2019-09-16 22:55] LABS: BILIRUBIN URINE NEGATIVE (NEGATIVE); BLOOD URINE MODERATE (NEGATIVE); COLOR YELLOW; GLUCOSE URINE NEGATIVE (NEGATIVE); KETONE URINE NEGATIVE (NEGATIVE); LEUKOCYTES URINE NEGATIVE (NEGATIVE); NITRITE URINE NEGATIVE (NEGATIVE); PH URINE 6.5; PROTEIN URINE 200 mg/dL (NEGATIVE); SP GRAVITY URINE 1.042; TURBIDITY URINE CLEAR (CLEAR); UROBILINOGEN URINE 6 mg/dL (NORMAL)
[2019-09-16 22:56] LABS: UR EPITHELIAL CELLS <10 /HPF (<10); URINE BACTERIA NEGATIVE /HPF; URINE RBC <10 /HPF (<10); URINE WBC <10 /HPF (<10)
[2019-09-17] MEDS: DUONEB (A & A) INH SCH ×2 (03:11→07:45)
--- NOTE | 2019-09-17 03:37 | GENERAL SURGERY CONSULTATION ---
DATE: 09/16/2019 REQUESTING PHYSICIAN: Dr. Sanno. CONSULT REQUEST: Cold leg. HISTORY OF PRESENT ILLNESS: A 38-year-old gentleman with a complicated past medical history, he was initially admitted on 09/01/2019 for being unresponsive. He has a known history of congestive heart failure with an EF of less than 20%, with some recording EF's of 10%. He has a strong family history of hypercoagulable issues and, apparently, came in with a stroke thought to be related to a mural thrombus in his ventricle. They started on anticoagulation and he converted to a hemorrhagic stroke and so they stopped anticoagulation. It has been noted that he started developing a cool right leg and this has progressed. He had an ultrasound done recently that showed an extensive arterial thrombus essentially from his iliac all the way down to his posterior tibial artery on the right, with associated venous thrombosis. I was asked to weigh an opinion. The patient's mental status is not there to give any further history. There is no current family at the bedside. I discussed the case with Dr. Sanon, who is the hospitalist seeing him right now. PAST MEDICAL HISTORY: 1. Severe nonischemic cardiomyopathy. 2. Congestive heart failure with a potential ejection fraction of 10%. 3. CVA with conversion to hemorrhagic stroke. 4. Hypertension. 5. Left ventricular thrombus. 6. History of ARDS. PAST SURGICAL HISTORY: Includes tracheostomy. SOCIAL HISTORY: Current smoker. Does report smoking marijuana. ALLERGIES: None. HOME MEDICATIONS: In the MAR and reviewed. FAMILY HISTORY: Positive for some kind of hypercoagulable state. REVIEW OF SYSTEMS: Unable to obtain secondary to patient's mental status. PHYSICAL EXAMINATION: Vital Signs: Patient is currently afebrile. Pulse 88, blood pressure 124/87, O2 saturation 98%. General: Exam minimally responsive, male, looks stated age. HEENT: Normocephalic, atraumatic. Pupils equal, round, reactive to light. Mucous membranes moist. Oropharynx benign. Neck: Supple. Trachea midline. Cardiovascular: Regular rate and rhythm. Lungs: Grossly clear. Abdomen: Soft, nontender. Extremities: Very minimal movement on the right side. The right leg is cool from the knee down. Vascular: Potentially monophasic femoral pulse by Doppler, but no signals noted in the foot on the right side. Neurologic: Residual defects noted. LABORATORY: White blood count is 21, hematocrit is normal, platelet count normal. Remainder of labs reviewed. IMAGING: Reviewed. ASSESSMENT AND PLAN: A 38-year-old gentleman with likely embolic disease to his leg in the setting of hemorrhagic stroke, congestive heart failure and active mural thrombus. Cold leg. At this time, the patient presents with a very complicated situation. I discussed the case with Dr. Sanon. At this point, patient has a very extensive arterial thrombus that likely precludes him from having a thrombectomy, it is likely subacute given the nature and the appearance on ultrasound. I am getting a CT angiography to evaluate the disease burden further, but I suspect this is even coming up into his common iliacs potentially. At this point, potentially the best option would be a try to anticoagulate him, although it puts him at high risk for his stroke getting worse given the hemorrhagic side secondary to his recent cerebrovascular accident. The patient has ejection fraction report of 10%, even in the setting if it is a 15% to 20%, makes him a very high risk surgical candidate, even do a thrombectomy and even consider an amputation so, at this point, we may have to just consider anticoagulation. If it continues to worsen or if he has acute decline, may even need to consider putting a filter in, although he has active mural thrombus in his left ventricle which the filter would not stop any arterial embolic disease. We will have to discuss further with family who is on their way in. Would even potentially offer them a transfer to a tertiary facility, but I am unsure what additional options he would have there. Overall, I am concerned that his prognosis is pretty poor. We will continue to follow. I appreciate the consult. cc: Mike Lara MD
[2019-09-17] MEDS: LOVENOX SUBQ SCH (05:40)
[2019-09-17] MEDS: PROTONIX PO SCH ×2 (05:40→06:07)
--- NOTE | 2019-09-17 05:59 | Diag Imaging Result Doc PS360 ---
EXAM: CT ANGIOGRAM AORTA W/RUNOFF HISTORY: cold right leg with arterial and venous thrombus TECHNIQUE: CT angiogram aorta with runoff. MIP images obtained. COMPARISON: None. FINDINGS: The heart is markedly enlarged. No calcified gallstones. No focal hepatic or splenic abnormality. Normal pancreas and adrenal glands. There is scarring and hypodensities within the left kidney. No hydronephrosis. No bowel obstruction. No ascites. Urinary bladder is moderately distended and appears normal. Axial images only extend into the upper calf. The mid and distal calf to the ankle are not included. Normal celiac artery. Normal superior mesenteric artery. Normal renal arteries. There are bilateral accessory renal arteries. Normal inferior mesenteric artery. Left: Normal common iliac and external iliac arteries. Normal common femoral artery. Normal superficial femoral artery. Normal popliteal artery. There is a three vessel trifurcation. Right: Normal common iliac artery. There is no flow within the external iliac artery, common femoral artery, and superficial femoral artery. There is flow in the deep femoral artery via collaterals. No flow in the popliteal artery. 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 A preliminary report was given at 10:18 PM on 09/16/2019 This exam was performed using automated exposure control, adjustment of mA or kV according to patient size, and/or use of iterative reconstruction technique. Electronically signed by Reynold Holley 09/17/2019 5:56 AM
[2019-09-17 06:35] LABS: BASO# 0.08 X1000 (0.0-0.2); BASO% 0.4 % (0.0-0.8); EOS% 0.5 % (0.0-10.0); HEMATOCRIT 49.3 % (42.0-52.0); HEMOGLOBIN 16.3 g/dL (14.0-18.0); IMM GRAN% 0.5 % (0.0-0.5); LYMPH# 2.18 X1000 (1.2-3.4); LYMPH% 10.2 % (20.5-51.1); MCHC 33.1 g/dL (33-37); MCV 90.6 FL (81-99); MONO# 1.66 X1000 (0.11-0.59); MONO% 7.8 % (1.7-9.3); MPV 9.9 FL (7.4-10.4); NEUT# 17.18 X1000 (1.4-6.5); NEUT% 80.6 % (42.2-75.2); PLT 306 X1000 (130-400); RBC 5.44 XMIL (4.7-6.1); RDW 15.5 % (11.5-14.5)
[2019-09-17 06:52] LABS: AGAP 13; BUN 22 mg/dL (8-22); CALCIUM 8.9 mg/dL (8.8-10.2); CHLORIDE 100 mmol/L (98-107); COSMO 274; CREATININE 0.9 mg/dL (0.7-1.2); ESTIMATED GFR > 60; GLUCOSE 115 mg/dL (70-104); POTASSIUM 4.5 mmol/L (3.5-5.1); SODIUM 135 mmol/L (136-145); TCO2 22 mmol/L (25-35)
--- NOTE | 2019-09-17 09:38 | CARDIOLOGY CONSULTATION ---
DATE: 09/17/2019 REASON FOR CONSULTATION: Cardiology was consulted for severe LV dysfunction. HISTORY OF PRESENT ILLNESS: The patient is admitted with stroke. He has LV thrombus, and he had a clot to his right lower extremity. A 38-year-old gentleman with a complicated medical history was admitted on 09/01/2019 for being unresponsive. He has a known history of congestive heart failure, severe LV dysfunction, ejection fraction of 20%, recent recording of 10%, with LV thrombus. He was admitted with stroke-like features, and he received IV heparin. Subsequently, he had worsening of his stroke, and it converted from a thrombotic to a hemorrhagic stroke. Anticoagulation was discontinued. The patient developed right lower extremity decrease in temperature, with a cool right leg, which has progressed, and he has had an ultrasound done, which showed extensive arterial thrombus from the iliac, all the way to the posterior tibial artery, associated with venous thrombosis. On 09/16/2019, he had a CT angiogram of the lower extremities with runoff, which shows occlusion of the right iliac artery, with no flow demonstrated in the common femoral artery, superficial femoral artery, and popliteal artery. REVIEW OF SYSTEMS: Could not be obtained from the patient. 1. The patient had a severe nonischemic cardiomyopathy with ejection fraction of 10% as mural thrombus. 2. CVA with thrombotic conversion to hemorrhagic stroke, on anticoagulation therapy. 3. History of history of CVA in the past as well, with an MRI of his brain on 04/24/2016. At that time, he had a large posterior cerebral acute territory stroke involving the left thalamus as well, which the patient apparently recovered from. 4. History of ARDS secondary to bronchitis at the age of 21. 5. Tracheostomy with reversal in the past. 6. He smokes recreational marijuana. History of alcohol abuse currently. PHYSICAL EXAMINATION: Vital Signs: Blood pressure 117/82. Neck: Jugular venous pressure could not be assessed. Heart: First and second heart sounds were heard. Respiratory: Normal air entry. Abdomen: Soft. Central Nervous System: The patient is aphasic. Right hemiparesis. Extremities: The right leg distally is cool. Trace edema, with pulses palpable only on the right femoral. ASSESSMENT AND PLAN: Mr. Kyle Nieto is a 38-year-old, gentleman, who has history of stroke, likely nonischemic cardiomyopathy with severe left ventricular dysfunction, ejection fraction of 10% with layered thrombus noted, history of strokes in the past, is admitted with an ischemic stroke, which was new this admission, was started on anticoagulation therapy given his left ventricular thrombus. The stroke progressed to a hemorrhagic stroke. Anticoagulation was discontinued. Neurology had been consulted. The patient has developed extensive arterial thrombus, which is likely embolic from the left ventricle to his right leg, involving the common the iliacs and lower. The patient, from a cardiac standpoint, is a high surgical risk. Regardless, he is currently not in heart failure, and would recommend proceeding with surgery as planned. He will be transferred to [facility] for further care. Thank you for the consult. cc: Damian Dos Santos MD [facility]
--- NOTE | 2019-09-17 09:55 | GENERAL SURGERY PROGRESS NOTE ---
DATE: 09/17/2019 SUBJECTIVE: Patient doing about the same. CT angiogram shows occlusion of the right external iliac all the way down the right leg with some collateralization to the thigh. Otherwise, the patient has been about the same per the nursing staff. OBJECTIVE: Vital Signs: Patient is currently afebrile. His vital signs are stable. General: No acute distress. Awake but nonresponsive. HEENT: Normocephalic, atraumatic. Pupils equal, round, reactive to light. Mucous membranes moist. Oropharynx benign. Neck: Supple. Cardiovascular: Regular rate and rhythm. Lungs: Grossly clear. Abdomen: Soft, nontender, nondistended. Extremities: Right leg still cool compared to the left but it is a little bit warmer. He has had a bear hug, vascular decreased signals and pulses on the right leg. Neurologic: Residual defects noted and persistent. LABORATORY DATA: White blood count 21, hematocrit is normal, platelet count normal. Remainder of labs reviewed. CT scan reviewed and noted. ASSESSMENT AND PLAN: A 38-year-old gentleman with subacute thrombus to the right leg. Subacute thrombus. At this time, reviewed CT angiography, discussed with my partner, Dr. Westbrook. The patient would certainly be high risk for surgical intervention. Discussed with Cardiology who will come in and see him, give us risk stratification. We will need to have an extensive discussion with the family about risks and benefits. I suspect we could potentially clean up some of the thrombus but unsure if we could keep his leg open. With his recent stroke, he would also be at increased risk. We will need to have an extensive discussion with the family but I will make him NPO in case they do want us to proceed. We will have Cardiology evaluate in case the family does want to proceed and potentially do this around mid day. I have discussed and updated with Dr. Sanon. cc: Mike Lara MD
[2019-09-17] MEDS: THERA M PLUS PO SCH (09:59)
[2019-09-17] MEDS: ROCEPHIN 2 GM in NS 50 ML IV SCH (09:59)
[2019-09-17] MEDS: COREG PO SCH (09:59)
[2019-09-17] MEDS: VITAMIN B-1 PO SCH (09:59)
[2019-09-17] MEDS: MORPHINE IV PRN (09:59)
[2019-09-17] MEDS: PRINIVIL PO SCH (09:59)
--- NOTE | 2019-09-17 10:02 | GENERAL SURGERY PROGRESS NOTE ---
DATE: 09/17/2019 I reached out to several colleagues to discuss the clinical case. I had a discussion with cardiology to come evaluate the patient and anesthesiology. Discussed again with Dr. Westbrook again this morning and a colleague of jassi, a vascular surgeon at an outside facility. Taking all these facts into play, the patient likely needs to go to a tertiary facility. I am concerned about the overall viability of his leg. He is likely going to have some degree of reperfusion injury with release of potassium, which may complicate his significant cardiac risk already. His ejection fraction of 10-15% makes him high risk for any surgery over here and he may need more invasive monitoring perioperatively than we can supply here at the hospital. After this discussion, we reached out to [facility]. We were able to talk with Dr. Mahoney with vascular surgery. He is willing to take the patient. We will make all arrangements to expedite his transfer over in a quick manner over to [facility]. The family was updated. The hospital is still trying to get in touch with the next of kin but there was a close relative at the bedside. cc: Mike Lara MD MTDD
[2019-09-17 11:27] VITALS: BP 100/80
--- NOTE | 2019-09-18 09:02 | DISCHARGE SUMMARY ---
ADMISSION DATE: 09/01/2019 DISCHARGE DATE: 09/17/2019 CONSULTATIONS: 1. Cardiology, Dr. Dos Santos. 2. General Surgery, Dr. Lara. 3. Neurology, Dr. Simon. PERTINENT STUDIES: Initial CT head age indeterminate lacunar infarct in the right caudate that was not present previously on 09/01. CT head 09/02 showing relatively large stroke in the left MCA territory. CT head 09/03 large left MCA territory stroke complicated by acute intraparenchymal hemorrhage. CT head 09/05 with diminished extent of hemorrhagic stroke and improved cytotoxic edema and mass effect. Head CT 09/14 showing subacute infarct in the insulin basal ganglia, which is slightly improved compared to previous. Less than 3 mm residual midline shift with improved edema involving hemorrhage proximally, stable from previous. Remains quite small. Venous ultrasound 09/12 with no venous clot and poorly defined arterial abnormality. That study was not completed because of patient refusal. Repeat ultrasound 09/14 full report not available, but reportedly showed extensive arterial and venous clot in the right lower extremity. Aorta with runoff CTA of the right leg showing occlusion in the right external iliac artery with no flow demonstrated in the common femoral, superficial femoral and popliteal arteries. Chest x- rays on 09/01 and 09/15 showing stable cardiomegaly, but no acute process. Last echocardiogram 09/03 showing EF 15 to 20 percent and ongoing intracardiac thrombus in the apical portion of the inferior wall of the left ventricle, which was quite dense and favored to be an old organized thrombus. It was similar to his previous echocardiogram in May. DISCHARGE DIAGNOSES: 1. Ischemic stroke. 2. Hemorrhagic stroke. 3. Extensive acute arterial thrombus in the right femoral. 4. Acute deep vein thrombosis in the right leg which is extensive. 5. Chronic systolic congestive heart failure last ejection fraction 10% to 20%. 6. Left ventricular thrombus. 7. Hypertension. 8. Chronically elevated and stable troponin. 9. Hyponatremia, mild. 10. History of medical noncompliance. HOSPITAL COURSE: The patient with history of severe systolic heart failure and intracardiac thrombus was brought in with altered mental status, aphasia. The patient was found to have an age- indeterminate lacunar infarct on the right and, on repeat imaging shortly thereafter, was also found to have a large right MCA territory stroke. It was thought this may have come from his left ventricular thrombus, so was started on a heparin drip, but subsequently had hemorrhagic transformation of the large stroke. This did cause some edema and mass effect. Heparin was stopped at that point. CT heads were followed serially and did show decreasing edema and resolving midline shift. The patient did wake up, but remained aphasic and with a fairly dense right hemiparesis. Mental status waxes and wanes somewhat, but for the most part for the last several days of his hospitalization, he was arousable and cooperative with his left side. On 09/12, he was noted to have some right leg swelling. Ultrasound at that point showed no venous clot and a poorly defined arterial abnormality, but the patient at that time refused further evaluation of the arterial circulation. On the , the patient had episode of further decreased responsiveness and possible flaccidity or flaccid paralysis of the left side as well. He was moved to the ICU. Repeat CT head did not show any change. Actually showed some improvement and this resolved spontaneously. While he was less responsive. Ultrasound was obtained and later showed extensive arterial and venous clot in the right lower leg. The full report on that is still pending. When this was found, Surgery was involved who evaluated the patient. Because of his recent strokes and severe congestive heart failure, he was thought to be a poor candidate for surgery, but it was discussed. A CTA was obtained which confirmed essentially no flow in the right external iliac, common femoral, superficial femoral and popliteal arteries. Dr. Lara, who was the original surgeon, consulted. Further discussed the case with Dr. Westbrook, who felt that surgery might be a possibility, but recommended discussing transfer to [place] for a dedicated vascular surgeon to evaluate and potentially treat. This was discussed with Dr. Mahoney at [facility]. He did accept the patient in transfer. DISCHARGE VITAL SIGNS: Temperature 97.9 degrees, pulse 97, respirations 29, blood pressure 115/90, O2 saturation 97% on 2 L by nasal cannula. DISCHARGE DIET: Ensure with each meal. Assistance with meals. Mechanical soft diet. FOLLOWUP AND PLAN: Patient transferring to [facility] for further evaluation by Vascular Surgery of extensive right lower extremity arterial and venous thrombosis with loss of blood flow to the limb. TIME SPENT: Greater than 30 minutes spent arranging discharge. [facility]
--- NOTE | 2019-09-19 18:09 | VASCULAR LAB ---
DATE: 09/14/2019 STUDY: Right lower extremity arterial ultrasound. REFERRING PHYSICIAN: Dr. Krause. PATIENT IDENTIFICATION: He is a 38-year-old male. He is in ICU 4. INDICATIONS: The patient underwent a vascular study two days ago and evidently there is a question of whether there was a clot in the arterial system, right lower extremity, at that time. We are asked to perform a right arterial ultrasound to further evaluate this. FINDINGS: There appears to be thrombus within the arteries of the right lower extremity. The thrombus extends from the right common femoral artery distally into the right superficial femoral artery, right popliteal artery, and into the right posterior tibial artery, extending into the distal calf. There is also venous thrombosis noted in the right superficial femoral artery, right popliteal artery, and right posterior tibial vein to the distal calf. The left leg imaging was limited secondary to the patient's agitation. INTERPRETATION: Two days ago the patient had a venous study and it was noted that there was thrombus within the right common femoral artery at that study. Evidently, the patient refused further study at that time and two days later we are asked to perform a right leg arterial ultrasound. There is evidence of arterial thrombus throughout the arteries of the right lower extremity as described above. There is also an acute deep venous thrombosis involving the right leg from the superficial femoral vein to the posterior tibial vein in the distal calf. Dr. Krause was notified at the time of this study. cc: MD Preston Aguayo MD
== END 2019-09-17 11:15 | disposition short-term general hospital (02) | DRG 64 ==
LOC: SUPCPDRO → EDBD → ED 10:32 → SUATTDRO 18:43 → ICU 18:43 → 3N 09-09 16:16 → ICU 09-14 15:49
PROVIDERS: ATTEND Internal Medicine

== ENCOUNTER 2019-09-29 07:12 | Inpatient (IN) ==
[2019-09-29] MEDS ORDERED: ZOFRAN IV PRN ×3 (10:19→18:49)
[2019-09-29] MEDS ORDERED: TYLENOL PO PRN ×3 (10:19→18:49)
[2019-09-29 10:51] LABS: BASO# 0.13 X1000 (0.0-0.2); BASO% 0.9 % (0.0-0.8); EOS# 0.31 X1000 (0.0-0.7); EOS% 2.2 % (0.0-10.0); HEMATOCRIT 31.4 % (42.0-52.0); HEMOGLOBIN 9.8 g/dL (14.0-18.0); IMM GRAN# 0.13 X1000 (0.0-0.04); IMM GRAN% 0.9 % (0.0-0.5); LYMPH# 1.76 X1000 (1.2-3.4); LYMPH% 12.4 % (20.5-51.1); MCH 28.6 PG (27-31); MCHC 31.2 g/dL (33-37); MCV 91.5 FL (81-99); MONO# 1.35 X1000 (0.11-0.59); MONO% 9.5 % (1.7-9.3); MPV 8.8 FL (7.4-10.4); NEUT% 74.1 % (42.2-75.2); PLT 423 X1000 (130-400); RBC 3.43 XMIL (4.7-6.1); RDW 17.6 % (11.5-14.5); WBC 14.18 X1000 (4.8-10.8)
[2019-09-29 11:05] LABS: HEMOGLOBIN A1C 5.5 % (4.8-6.0)
--- NOTE | 2019-09-29 11:06 | Diag Imaging Result Doc PS360 ---
EXAM: CHEST-1 VIEW HISTORY: dyspnea TECHNIQUE: Single view COMPARISON: 09/15/2019 FINDINGS: Poor inspiratory effort. The heart is enlarged. Mild vascular distention. No consolidation. There is a small left pleural effusion. IMPRESSION: Cardiomegaly with pulmonary edema. Electronically signed by Reynold Holley 09/29/2019 11:04 AM
[2019-09-29 11:08] LABS: AGAP 11; ALB/GLOB RATIO 0.7; ALBUMIN 2.5 g/dL (3.5-5.0); ALKALINE PHOSPHATASE 155 U/L (32-122); BUN 22 mg/dL (8-22); CALCIUM 8.7 mg/dL (8.8-10.2); CHLORIDE 106 mmol/L (98-107); COSMO 285; CREATININE 0.7 mg/dL (0.7-1.2); ESTIMATED GFR > 60; GLUCOSE 111 mg/dL (70-104); GOT 41 U/L (10-34); GPT 52 U/L (10-44); SODIUM 141 mmol/L (136-145); TCO2 24 mmol/L (25-35); TOTAL BILIRUBIN 0.84 mg/dL (0.20-1.00); TOTAL PROTEIN 5.9 g/dL (6.3-8.3)
--- NOTE | 2019-09-29 11:18 | EKG Report ---
Test Performed on : 09/29/2019 10:45:01 AM Test Reason : admission Blood Pressure : / mmHG Vent. Rate : 090 BPM Atrial Rate : 090 BPM P-R Int : 166 ms QRS Dur : 098 ms QT Int : 400 ms P-R-T Axes : 056 -53 105 degrees QTc Int : 489 ms Normal sinus rhythm. Biatrial enlargement Left axis deviation Left ventricular hypertrophy with repolarization abnormality Prolonged QT Abnormal ECG When compared with ECG of 14-SEP-2019 15:16, Criteria for Inferior infarct are no longer present ST now depressed in Lateral leads T wave inversion more evident in Lateral leads Confirmed by Jose Armando DANIEL, Erick Quintero ([id number]) on 10/02/2019 5:55:48 PM
[2019-09-29 11:23] LABS: CK PROFILE 310 U/L (24-204)
[2019-09-29 11:46] LABS: CK INDEX 0.6 (0.0-2.5); CK-MB 1.95 ng/mL (0.0-5.0)
[2019-09-29] MEDS: LOVENOX SUBQ SCH (17:39)
[2019-09-29 18:04] LABS: URINE SOURCE CATH
[2019-09-29 18:09] LABS: BILIRUBIN URINE NEGATIVE (NEGATIVE); BLOOD URINE TRACE (NEGATIVE); COLOR YELLOW; GLUCOSE URINE NEGATIVE (NEGATIVE); KETONE URINE NEGATIVE (NEGATIVE); LEUKOCYTES URINE NEGATIVE (NEGATIVE); NITRITE URINE NEGATIVE (NEGATIVE); PH URINE 7.5; PROTEIN URINE 30 mg/dL (NEGATIVE); SP GRAVITY URINE 1.022; TURBIDITY URINE TURBID (CLEAR); UROBILINOGEN URINE NORMAL (NORMAL)
[2019-09-29 18:24] LABS: UR EPITHELIAL CELLS <10 /HPF (<10); URINE BACTERIA NEGATIVE /HPF; URINE RBC <10 /HPF (<10); URINE WBC <10 /HPF (<10)
[2019-09-29 18:55] LABS: URINE CASTS NONE SEEN; URINE YEAST NONE SEEN
[2019-09-29 18:56] LABS: URINE CRYSTALS NONE SEEN
[2019-09-29 19:44] LABS: INR 1.16
[2019-09-29] MEDS: ENTRESTO 24 MG-26 MG TABLET PEG SCH (20:45)
[2019-09-29] MEDS: COREG PEG SCH (20:45)
[2019-09-29] MEDS ORDERED: ENTRESTO 24 MG-26 MG TABLET PO SCH (21:00)
[2019-09-29] MEDS: DUONEB (A & A) INH PRN (21:31)
--- NOTE | 2019-09-30 01:41 | HISTORY AND PHYSICAL ---
HISTORY OF PRESENT ILLNESS: This is a 38-year-old gentleman with a history of severe systolic heart failure, intracardiac thrombus, who was found with an ejection fraction of 10 to 20 percent. He was found to have a large right MCA territory stroke with an indeterminate lacunar infarct on the right 09/03/2019. He did have some edema and mass effect from this. CT of the head followed serially showed decreasing edema and resolving midline shift. He woke up but remained aphasic and he did have a right hemiparesis. On September 12, he was noted to have right leg swelling. Ultrasound showed extensive arterial and venous clot in the right lower leg. A CTA with runoff revealed occlusion of the right external iliac artery with no flow demonstrated in the common femoral artery, superficial femoral artery and popliteal artery. He was transferred to [facility] under the care of Dr. Mahoney for treatment. He returns today back to [facility] transfer from [facility] after having a right xshci-ydc-vplt amputation. At the time of my exam, there are no family members present. The patient remains aphasic so history is taken from the chart. PAST MEDICAL HISTORY: 1. Ischemic stroke. 2. Hemorrhagic stroke. 3. Extensive arterial thrombus in the right femoral status post right tqkff-yyc-hepm amputation. 4. Chronic systolic congestive heart failure with ejection fraction 10 to 20 percent. 5. Left ventricular thrombus. 6. Hypertension. 7. History of medical noncompliance. 8. History of ARDS secondary to bronchitis and pneumonia at the age of 21 requiring him to have a tracheostomy which has since been removed. SURGICAL HISTORY: Tracheostomy with reversal, right mqofd-tlt-blwe amputation. SOCIAL HISTORY: He has 4 children with a significant other with whom he lives. He smokes cigarettes. He smokes marijuana. He drinks alcohol. ALLERGIES: No known drug allergies documented in the chart. HOME MEDICATIONS: A list will be obtained from his [facility] records. REVIEW OF SYSTEMS: Unable to obtain. PHYSICAL EXAMINATION: GENERAL: This is a 38-year-old gentleman who is lying on the bed in no distress. VITAL SIGNS: Blood pressure is 118/80 with a heart rate of 87, respirations are 20, temperature is 98.2 degrees oral with room air saturations 98 to 99 percent. EYES: Pupils are equal, round, react to light. EOMs are intact. Sclerae anicteric. HENT: Head is normocephalic, atraumatic. Mucous membranes are moist. NECK: Supple with trachea midline. CARDIOVASCULAR: Regular rate and rhythm. S1 and S2 appreciated. He has no lower extremity edema to the left. Right is AKA with peripheral pulses palpable to left lower extremity and bilateral upper extremities. PULMONARY: Breath sounds are clear. No increased work of breathing noted. Chest rises and falls symmetric respiration. Chest wall is nontender to palpation. GASTROINTESTINAL: Abdomen is soft, nondistended, with bowel sounds in all 4 quadrants. GENITOURINARY: Berrios is patent to bedside bag with straw-colored urine draining. SKIN: Warm and dry. Right ltguh-mdo-ossv amputation is noted with incision intact and crystal clear and intact. LABORATORIES: There are no labs. No x-rays. ASSESSMENT AND PLAN: 1. Status post hemorrhagic and ischemic stroke with resulting aphasia and right sided weakness. 2. Status post right hdfpx-vdu-ppjo amputation secondary to arterial thrombus. 3. Chronic systolic heart failure with ejection fraction of 10 to 20 percent. 4. History of hypertension. PLAN: The patient has been admitted to the medical floor which we will continue. He will be placed on telemetry. We will get daily weights with strict I O. We will order to turn him every 2 hours. We will consult Coordinator Cardiopulmonary Services for discharge planning, dietitian for nutrition. We will review medications from [facility] and continue as appropriate. Tube feedings as directed. We will check a BMP, CBC, albumin along with ferritin and folate, magnesium, phosphorus, pre-albumin, iron and vitamin B12 in the morning. Lovenox q.12 hours. We will check INRs. PEG tube. Hypertension. PPI. Plan was discussed with Dr. Enriquez. Further treatments pending hospital course. Dictated by LILIANA Kenny for Alexa Enriquez MD cc: LILIANA Kenny MD
[2019-09-30] MEDS ORDERED: CALMOSEPTINE OINTMENT TOP PRN (05:15)
[2019-09-30] MEDS: LOVENOX SUBQ SCH ×2 (06:32→18:54)
[2019-09-30] MEDS: SODIUM CHLORIDE 0.9% INJ SCH (06:33)
[2019-09-30] MEDS: PROTONIX IV SCH (06:33)
[2019-09-30 08:13] LABS: HEMATOCRIT 33.2 % (42.0-52.0); HEMOGLOBIN 10.5 g/dL (14.0-18.0); MCH 29.2 PG (27-31); MCHC 31.6 g/dL (33-37); MCV 92.2 FL (81-99); MPV 9.2 FL (7.4-10.4); RBC 3.6 XMIL (4.7-6.1); RDW 17.7 % (11.5-14.5); WBC 14.79 X1000 (4.8-10.8)
[2019-09-30 08:21] LABS: INR 1.16
[2019-09-30 08:53] LABS: AGAP 12; BUN 15 mg/dL (8-22); CALCIUM 9.1 mg/dL (8.8-10.2); CHLORIDE 105 mmol/L (98-107); COSMO 280; CREATININE 0.7 mg/dL (0.7-1.2); ESTIMATED GFR > 60; GLUCOSE 103 mg/dL (70-104); IRON SATURATION 13 %; POTASSIUM 3.7 mmol/L (3.5-5.1); SODIUM 140 mmol/L (136-145); TCO2 23 mmol/L (25-35); TIBC 252 ug/dL; TOTAL IRON 32 ug/dL (53-167); UNBOUND IRON 220 ug/dL (112-346)
[2019-09-30 08:54] LABS: ALBUMIN 2.4 g/dL (3.5-5.0); CHOLESTEROL 161 mg/dL (0-200); HDL 33 mg/dL (35-55); LDL 108 mg/dL; MAGNESIUM 1.7 mg/dL (1.5-2.7); PHOSPHORUS 3.1 mg/dL (2.7-4.5); PREALBUMIN 16.1 mg/dL (20-40); TRIGLYCERIDES 99 mg/dL (39-160); VLDL 20 mg/dL
[2019-09-30 09:02] LABS: FERRITIN 229 ng/mL (30-400)
[2019-09-30] MEDS: COREG PEG SCH ×2 (09:46→23:30)
[2019-09-30] MEDS: ENTRESTO 24 MG-26 MG TABLET PEG SCH ×2 (09:47→23:30)
[2019-09-30] MEDS: PERCOCET-5 PEG PRN ×2 (13:47→18:54)
[2019-09-30] MEDS: NEURONTIN PO SCH ×2 (18:54→23:30)
--- NOTE | 2019-09-30 19:21 | PROGRESS NOTE ---
DATE: 09/30/2019 SUBJECTIVE: The patient is resting comfortably in bed. He complains of pain in his leg. OBJECTIVE: Vital Signs: Temperature 98.1 degrees, blood pressure 118/84, heart rate 83, respirations 20, O2 saturations 100% on room air. General: This is a young male lying in bed in no acute distress. Heart: S1, S2. Normal. Lungs: Equal air entry bilaterally. No wheezing. No rales. Abdomen: Positive bowel sounds. Soft, nontender, nondistended. Extremities: The right stump is wrapped in a clean dry dressing. Neurologic: The patient is alert and oriented x4 with right hemiplegia. LABS: White blood cell count 14, hemoglobin 10, hematocrit 33, platelets 447,000. Sodium 140, potassium 3.7, chloride 105, CO2 23, BUN 15, creatinine 0.7, glucose 103, magnesium 1.7. ASSESSMENT AND PLAN: 1. Status post right njdpr-hap-jpgj amputation. Continue with wound care. 2. History of ischemic stroke with right hemiplegia. We will consult physical therapy and occupational therapy. The patient and his family are requesting a rehab evaluation. 3. Constipation. We will start the patient on MiraLAX and Colace. 4. Left ventricular thrombus. The patient is on Lovenox plus warfarin. Will monitor the INR daily. 5. Chronic systolic CHF with an ejection fraction of 10 to 20 percent. Aware. 6. Hypertension. Controlled. Continue on the current antihypertensive regimen. 7. Iron deficiency anemia. We will start the patient on iron supplementation. 8. Neuropathy. We will start gabapentin. 9. Disposition. We will consult Principal Trainer for inpatient rehab placement. cc: Alexa Enriquez MD
[2019-09-30] MEDS ORDERED: COUMADIN PO SCH (21:00)
[2019-09-30] MEDS: COUMADIN PO SCH (23:30)
[2019-10-01] MEDS: PROTONIX IV SCH ×2 (05:55→06:06)
[2019-10-01] MEDS: LOVENOX SUBQ SCH ×2 (05:55→18:04)
[2019-10-01] MEDS: SODIUM CHLORIDE 0.9% INJ SCH (05:55)
[2019-10-01] MEDS: NEURONTIN PO SCH ×4 (06:09→21:18)
[2019-10-01] MEDS: PERCOCET-5 PEG PRN ×3 (06:54→18:04)
[2019-10-01 07:28] LABS: BASO# 0.07 X1000 (0.0-0.2); BASO% 0.6 % (0.0-0.8); EOS# 0.23 X1000 (0.0-0.7); HEMATOCRIT 34.5 % (42.0-52.0); HEMOGLOBIN 10.8 g/dL (14.0-18.0); IMM GRAN# 0.07 X1000 (0.0-0.04); IMM GRAN% 0.6 % (0.0-0.5); LYMPH# 2.41 X1000 (1.2-3.4); LYMPH% 20.8 % (20.5-51.1); MCH 28.8 PG (27-31); MCHC 31.3 g/dL (33-37); MONO% 9.5 % (1.7-9.3); NEUT% 66.5 % (42.2-75.2); PLT 470 X1000 (130-400); RBC 3.75 XMIL (4.7-6.1); RDW 17.4 % (11.5-14.5); WBC 11.58 X1000 (4.8-10.8)
[2019-10-01 07:37] LABS: INR 1.13; PROTIME 14.6 Seconds (11.0-16.0)
[2019-10-01 07:55] LABS: AGAP 11; ALBUMIN 2.5 g/dL (3.5-5.0); BUN 15 mg/dL (8-22); CALCIUM 9.1 mg/dL (8.8-10.2); CHLORIDE 105 mmol/L (98-107); COSMO 281; CREATININE 0.7 mg/dL (0.7-1.2); ESTIMATED GFR > 60; GLUCOSE 105 mg/dL (70-104); MAGNESIUM 1.7 mg/dL (1.5-2.7); PHOSPHORUS 3.1 mg/dL (2.7-4.5); POTASSIUM 3.9 mmol/L (3.5-5.1); SODIUM 140 mmol/L (136-145); TCO2 24 mmol/L (25-35)
[2019-10-01] MEDS ORDERED: MIRALAX PEG SCH (09:00)
[2019-10-01] MEDS: VITAMIN D PO SCH (09:43)
[2019-10-01] MEDS: ENTRESTO 24 MG-26 MG TABLET PEG SCH ×2 (09:50→21:18)
[2019-10-01] MEDS: COREG PEG SCH ×2 (09:50→21:18)
--- NOTE | 2019-10-01 21:07 | PROGRESS NOTE ---
DATE: 10/01/2019 SUBJECTIVE: The patient is resting comfortably. No acute events noted overnight. OBJECTIVE: Vital signs: Temperature 97.6 degrees, blood pressure 107/84, heart rate 78, respirations 20, O2 saturations 100% on room air. General: This is a young male lying in bed in no acute distress. Heart: S1, S2 normal. Regular rate and rhythm. Lungs: Equal air entry bilaterally. No wheezing. No rales. No rhonchi. Abdomen: Positive bowel sounds. Soft, nontender, nondistended. Extremities: No edema, no cyanosis. Neuro: The patient is alert and oriented x3 with right hemiplegia. LABS: White blood cell count 11, hemoglobin 10, hematocrit 34, platelets 470,000, magnesium 1.7, albumin 2.5, BUN 15, creatinine 0.7, glucose 105, vitamin D 11.6. ASSESSMENT AND PLAN: 1. Status post right nnrtk-wwf-royq amputation. Continue with wound care. 2. History of ischemic stroke with right hemiplegia. Physical therapy has been consulted and inpatient rehab evaluation has been requested. 3. Left ventricular thrombus. Continue on warfarin plus Lovenox. The INR is subtherapeutic at this time. 4. Chronic systolic congestive heart failure with an ejection fraction of 10 to 20 percent. Aware. 5. Constipation. Continue on MiraLAX and Colace via the percutaneous endoscopic gastrostomy tube. 6. Hypertension. Controlled. Continue on the current antihypertensive regimen. 7. Neuropathy. Continue on Neurontin. 8. Iron deficiency anemia. Continue on Icar C via the percutaneous endoscopic gastrostomy tube. 9. Disposition. Bead Inspector has been consulted for inpatient rehab placement. cc: Alexa Enriquez MD [facility]
[2019-10-01] MEDS: COUMADIN PO SCH (21:18)
[2019-10-01] MEDS: ICAR-C PEG SCH (21:20)
[2019-10-01] MEDS: MIRALAX PEG SCH (21:20)
[2019-10-02] MEDS: SODIUM CHLORIDE 0.9% INJ SCH (06:34)
[2019-10-02] MEDS: LOVENOX SUBQ SCH ×2 (06:34→17:42)
[2019-10-02] MEDS: PROTONIX IV SCH (06:34)
[2019-10-02] MEDS: NEURONTIN PO SCH ×3 (06:34→22:07)
[2019-10-02 06:54] LABS: BASO# 0.08 X1000 (0.0-0.2); BASO% 0.8 % (0.0-0.8); EOS# 0.27 X1000 (0.0-0.7); EOS% 2.8 % (0.0-10.0); HEMATOCRIT 35.2 % (42.0-52.0); HEMOGLOBIN 10.8 g/dL (14.0-18.0); IMM GRAN# 0.05 X1000 (0.0-0.04); IMM GRAN% 0.5 % (0.0-0.5); LYMPH# 2.59 X1000 (1.2-3.4); LYMPH% 26.5 % (20.5-51.1); MCH 28.3 PG (27-31); MCHC 30.7 g/dL (33-37); MCV 92.4 FL (81-99); MONO% 8.2 % (1.7-9.3); NEUT% 61.2 % (42.2-75.2); PLT 478 X1000 (130-400); RBC 3.81 XMIL (4.7-6.1); RDW 17.4 % (11.5-14.5); WBC 9.79 X1000 (4.8-10.8)
[2019-10-02 07:27] LABS: AGAP 11; BUN 15 mg/dL (8-22); CALCIUM 9.1 mg/dL (8.8-10.2); CHLORIDE 105 mmol/L (98-107); COSMO 281; CREATININE 0.7 mg/dL (0.7-1.2); ESTIMATED GFR > 60; GLUCOSE 110 mg/dL (70-104); POTASSIUM 4.2 mmol/L (3.5-5.1); SODIUM 140 mmol/L (136-145); TCO2 24 mmol/L (25-35)
[2019-10-02] MEDS: DUONEB (A & A) INH PRN (08:11)
[2019-10-02 11:30] LABS: INR 1.27; PROTIME 16.1 Seconds (11.0-16.0)
[2019-10-02] MEDS: ICAR-C PEG SCH ×2 (11:54→22:07)
[2019-10-02] MEDS: MIRALAX PEG SCH ×2 (11:54→22:06)
[2019-10-02] MEDS: ENTRESTO 24 MG-26 MG TABLET PEG SCH ×2 (11:54→22:06)
[2019-10-02] MEDS: COREG PEG SCH ×2 (11:54→22:07)
--- NOTE | 2019-10-02 16:00 | PROGRESS NOTE ---
DATE: 10/02/2019 SUBJECTIVE: The patient is resting comfortably in bed. No acute events noted overnight. OBJECTIVE: Vital Signs: Temperature 97.6 degrees, blood pressure 116/92, heart rate 85, respirations 18, O2 saturation 99% on room air. General: This is a young male lying in bed in no acute distress. Heart: S1, S2 normal. Lungs: Clear to auscultation bilaterally. No wheezing, no rales, no rhonchi. Abdomen: Positive bowel sounds, soft. There is a PEG tube in place. Extremities: No edema, no cyanosis. Neuro: The patient is alert and oriented x3. The patient has right hemiplegia. LABS: White blood cell count 9.7, hemoglobin 10, hematocrit 35, platelets 478,000. INR 1.2. Sodium 140, potassium 4.2, chloride 105, CO2 24, BUN 15, creatinine 0.7, glucose 110, calcium 9.1. ASSESSMENT AND PLAN: 1. Status post right above the knee amputation secondary to extensive arterial occlusion. Wound care has been consulted. 2. History of ischemic stroke with residual dysphagia and right hemiplegia. Continue with physical therapy. [facility] [employer] [employer] [facility] is working on inpatient rehab placement. 3. Dysphagia s/p peg tube. The patient passed the swallow evaluation today and was started on a mechanical soft diet. Strict aspiration precautions to be followed. If the patient can maintain his caloric intake the PEG tube can be removed prior to discharge. 4. Left ventricular thrombus. The INR is subtherapeutic. Continue on Lovenox and warfarin. 5. History of occlusion of the common femoral artery, superficial femoral artery and popliteal artery status post amputation. Aware. Continue with wound care. 6. Iron deficiency anemia. Continue with Icar C. 7. Neuropathy. Continue on Neurontin. 8. Hypertension. Controlled. 9. Constipation. Continue on MiraLAX, will add Colace and Dulcolax. 10. Chronic systolic congestive heart failure with an ejection fraction of 10 to 20 percent. Continue on Entresto, Coreg and Lipitor. 11. Vitamin D deficiency. Continue vitamin D replacement. 12. Oral candidiasis. Will order nystatin swish and swallow. 13. Disposition. The patient is medically stable for discharge. Would recommend continuing the Lovenox and warfarin combination until the patient's INR is therapeutic between 2 and 3. [facility] [employer] [facility] is working on inpatient rehab placement for the patient at [facility]. Continue with physical therapy. cc: Alexa Enriquez MD MTDD
--- NOTE | 2019-10-02 16:18 | Diag Imaging Result Doc PS360 ---
EXAM: ABDOMEN FLAT/UPRIGHT 10/02/2019 HISTORY: constipation TECHNIQUE: Flat and upright abdomen COMMENT: There is a gastrostomy tube. There is gas throughout the colon without evidence of dilatation. There is no evidence of bowel obstruction organomegaly or mass. There are multiple surgical skin clips over the right inguinal region. IMPRESSION: Nonspecific abdomen. Electronically signed by Brenton Dey 10/02/2019 4:16 PM
[2019-10-02] MEDS: PERCOCET-5 PEG PRN (18:32)
[2019-10-02] MEDS: COUMADIN PO SCH (22:06)
[2019-10-02] MEDS: COLACE LIQUID PEG SCH (22:06)
[2019-10-02] MEDS: LIPITOR PO SCH (22:07)
[2019-10-02] MEDS: MYCOSTATIN SUSP PO SCH (22:42)
[2019-10-03] MEDS: PROTONIX IV SCH (06:39)
[2019-10-03] MEDS: LOVENOX SUBQ SCH ×2 (06:39→22:40)
[2019-10-03] MEDS: NEURONTIN PO SCH ×3 (06:40→22:39)
[2019-10-03] MEDS: SODIUM CHLORIDE 0.9% INJ SCH (06:40)
[2019-10-03 07:42] LABS: HEMATOCRIT 35.4 % (42.0-52.0); HEMOGLOBIN 10.8 g/dL (14.0-18.0); MCH 28.2 PG (27-31); MCHC 30.5 g/dL (33-37); MCV 92.4 FL (81-99); RBC 3.83 XMIL (4.7-6.1); WBC 7.7 X1000 (4.8-10.8)
[2019-10-03 07:45] LABS: INR 1.36
[2019-10-03 08:11] LABS: AGAP 11; BUN 13 mg/dL (8-22); CALCIUM 8.8 mg/dL (8.8-10.2); CHLORIDE 105 mmol/L (98-107); COSMO 280; CREATININE 0.7 mg/dL (0.7-1.2); ESTIMATED GFR > 60; GLUCOSE 100 mg/dL (70-104); POTASSIUM 3.9 mmol/L (3.5-5.1); SODIUM 140 mmol/L (136-145); TCO2 24 mmol/L (25-35)
[2019-10-03] MEDS: COREG PEG SCH ×2 (09:15→22:42)
[2019-10-03] MEDS: COLACE LIQUID PEG SCH ×2 (09:15→22:39)
[2019-10-03] MEDS: MIRALAX PEG SCH ×2 (09:15→22:37)
[2019-10-03] MEDS: ENTRESTO 24 MG-26 MG TABLET PEG SCH ×2 (09:15→22:39)
[2019-10-03] MEDS: ICAR-C PEG SCH ×2 (09:16→22:42)
[2019-10-03] MEDS: MYCOSTATIN SUSP PO SCH ×4 (09:16→22:39)
[2019-10-03] MEDS: PERCOCET-5 PEG PRN (12:13)
--- NOTE | 2019-10-03 20:44 | PROGRESS NOTE ---
DATE: 10/03/2019 INTERVAL HISTORY: No acute events overnight. SUBJECTIVE: Mr. Nieto has aphagia and he is not able to verbalize if he had any complaints. VITALS: Temperature 97.9 degrees, pulse 93, respiratory rate 18, blood pressure 120/82, saturating 100% room air. PHYSICAL EXAMINATION: Does not appear in acute distress. Oral cavity is moist. Air entry bilaterally equal. No wheeze, rhonchi. S1, S2 normal. No murmur or gallop.Abdomen: Soft. He has a PEG tube. He has a urine catheter. Right lower extremity above-knee amputation. He is able to lift left upper and lower extremity above ground level. His pupils are bilaterally equal, reactive to light. He is able to follow both sides of midline with his eyes. He did not have facial asymmetry. He is not verbalizing at the moment. Sensations are intact to right upper extremity and right lower extremity as he was able to tell when I was pinching. LABORATORY AND DIAGNOSTIC DATA: Hemoglobin 10.8, WBC 7.7, platelet 470,000. INR 1.3, BUN 13, creatinine 0.7. No microbiological data. Abdominal x-ray performed for constipation did not have any constipation. ASSESSMENT AND PLAN: 1. History of multiple cerebrovascular accidents as well as hemorrhagic cerebrovascular accident since 2016, the latest being in September 2019. Status post dysphagia, PEG tube, and right hemiplegia. Continue physical therapy, high-dose statin. He is not listed to be taking aspirin as he is on therapeutic anticoagulation. Pending rehab transfer. He cleared his swallow evaluation, and I will continue him on mechanical soft diet and advance diet as tolerated. I will continue PEG tube for now. 2. Right external iliac, common femoral, and popliteal arterial thrombosis, likely due to embolization from left ventricular thrombus, status post right above-knee amputation. Continue local wound care. 3. Left ventricular thrombus due to chronic systolic congestive heart failure and low ejection fraction of 10 to 15 percent. Continue enoxaparin therapeutic with warfarin. My plan is to stop enoxaparin once INR is between 2 and 3 for at least 24 hours. 4. History of nonischemic cardiomyopathy with ejection fraction of 10 to 15 percent. Continue carvedilol, atorvastatin, and Entresto. 5. Other. Continue docusate for constipation, vitamin D supplementation for deficiency, gabapentin for neuropathic pain, Percocet as needed for pain as well. DISPOSITION: We will continue to monitor patient inside the hospital as we await rehab bed availability. Plan of care discussed with the patient. There are no family members available. cc: Tate Francisco MD
[2019-10-03] MEDS: LIPITOR PO SCH (22:42)
[2019-10-03] MEDS: COUMADIN PO SCH (22:42)
[2019-10-04] MEDS: PRILOSEC PO SCH (06:26)
[2019-10-04] MEDS: NEURONTIN PO SCH ×3 (06:27→21:25)
[2019-10-04 07:32] LABS: BASO# 0.07 X1000 (0.0-0.2); BASO% 0.8 % (0.0-0.8); EOS# 0.18 X1000 (0.0-0.7); EOS% 2.2 % (0.0-10.0); HEMATOCRIT 36.4 % (42.0-52.0); HEMOGLOBIN 11.2 g/dL (14.0-18.0); IMM GRAN# 0.02 X1000 (0.0-0.04); IMM GRAN% 0.2 % (0.0-0.5); LYMPH# 2.34 X1000 (1.2-3.4); LYMPH% 28.1 % (20.5-51.1); MCH 28.5 PG (27-31); MCHC 30.8 g/dL (33-37); MCV 92.6 FL (81-99); MONO% 8.4 % (1.7-9.3); MPV 9.2 FL (7.4-10.4); NEUT# 5.01 X1000 (1.4-6.5); NEUT% 60.3 % (42.2-75.2); PLT 456 X1000 (130-400); RBC 3.93 XMIL (4.7-6.1); RDW 16.7 % (11.5-14.5); WBC 8.32 X1000 (4.8-10.8)
[2019-10-04 07:39] LABS: INR 1.51; PROTIME 18.5 Seconds (11.0-16.0)
[2019-10-04 07:58] LABS: AGAP 13; BUN 17 mg/dL (8-22); CALCIUM 8.9 mg/dL (8.8-10.2); CHLORIDE 102 mmol/L (98-107); COSMO 276; CREATININE 0.6 mg/dL (0.7-1.2); ESTIMATED GFR > 60; GLUCOSE 110 mg/dL (70-104); MAGNESIUM 1.7 mg/dL (1.5-2.7); POTASSIUM 4.1 mmol/L (3.5-5.1); SODIUM 137 mmol/L (136-145); TCO2 22 mmol/L (25-35)
[2019-10-04] MEDS: ENTRESTO 24 MG-26 MG TABLET PEG SCH ×2 (09:18→21:25)
[2019-10-04] MEDS: MYCOSTATIN SUSP PO SCH ×4 (09:18→21:25)
[2019-10-04] MEDS: COLACE LIQUID PEG SCH ×2 (09:18→21:24)
[2019-10-04] MEDS: COREG PEG SCH ×2 (09:18→21:25)
[2019-10-04] MEDS: MIRALAX PEG SCH ×2 (09:18→21:24)
[2019-10-04] MEDS: LOVENOX SUBQ SCH ×2 (09:18→21:24)
[2019-10-04] MEDS: ICAR-C PEG SCH ×2 (09:18→21:25)
[2019-10-04] MEDS: PERCOCET-5 PEG PRN ×2 (09:41→14:41)
[2019-10-04] MEDS ORDERED: MIRALAX PEG SCH (15:00)
--- NOTE | 2019-10-04 16:37 | PROGRESS NOTE ---
DATE: 10/04/2019 INTERVAL HISTORY: No acute events overnight. SUBJECTIVE: Mr. Nieto does not appear in acute distress. He states he was able to eat his lunch. According to nursing report, he usually answers yes or no, most of the times appropriately. When I ask him if he had any suicidal or homicidal ideation, he refuses very clearly. When I asked him if he was feeling comfortable, he states yes. VITAL SIGNS: Temperature 98.1 degrees, pulse 95, respiratory 18, blood pressure 115/77 saturating 100% on room air. PHYSICAL EXAMINATION: General: He is not in any acute distress. HEENT: Oral cavity is moist. Lungs: Air entry bilaterally equal. No wheeze, rhonchi, or crackles. Cardiovascular: S1, S2 normal. No murmur or gallop. Abdomen: Soft, nontender. He has a PEG tube. : He has urine catheter. Extremities: He has a right lower extremity above-knee amputation. The stump is dressed. He has some crystal of the right groin. He is able to lift left upper and lower extremity above ground level. His pupils are bilaterally equal, reacting to light. He is following commands like opening mouth and answering questions by yes and no. Input and output: He was able to consume all of his meals. LABS: Suggestive of WBC of 8,000 hemoglobin 11,000, platelet 446,000. He does have BUN 17, creatinine 0.6. MICROBIOLOGY: No data. IMAGING: No new data. ASSESSMENT AND PLAN: 1. History of multiple ischemic cerebrovascular accidents as well as hemorrhagic cerebrovascular accident since 2016, the latest being in September 2019. State status post dysphagia, PEG tube, and right-sided hemiplegia. Continue physical therapy, high-dose statin. He is on therapeutic anticoagulation and so not on any aspirin considering prior intracranial hemorrhage. Pending rehab transfer. Continue oral diet as patient had passed a swallow study. I will keep PEG tube for now. 2. Right-sided external iliac, common femoral, and popliteal arterial thrombosis due to embolization from left ventricular thrombus, status post right above-knee amputation at [facility] in September 2019. Continue local wound care. I advised the nurse to apply wet-to-dry dressings. Surgical team on board. 3. Left ventricular thrombus due to chronic systolic congestive heart failure and nonischemic cardiomyopathy with ejection fraction of 10 to 15%. Continue therapeutic enoxaparin and warfarin until INR becomes more than 2. 4. History of nonischemic cardiomyopathy with ejection fraction of 10 to 15%. Continue carvedilol, atorvastatin, and Crestor. 5. Others. Continue MiraLAX and docusate for constipation, vitamin D for vitamin D deficiency, gabapentin for neuropathic pain, and Percocet as needed. DISPOSITION: Continue monitor patient inside the hospital as we await rehab bed placement. I tried to reach out to his girlfriend, but I was not able to reach out and there was no option to leave a voice message. I will keep her informed as I get in touch with her. cc: Tate Francisco MD MTDD
[2019-10-04] MEDS: COUMADIN PO SCH (21:25)
[2019-10-04] MEDS: LIPITOR PO SCH (21:25)
[2019-10-05] MEDS: NEURONTIN PO SCH ×3 (06:33→13:32)
[2019-10-05] MEDS: PRILOSEC PO SCH (06:33)
[2019-10-05] MEDS: ICAR-C PEG SCH ×2 (08:44→21:33)
[2019-10-05] MEDS: ENTRESTO 24 MG-26 MG TABLET PEG SCH ×2 (08:44→21:32)
[2019-10-05] MEDS: COLACE LIQUID PEG SCH ×2 (08:44→21:32)
[2019-10-05] MEDS: COREG PEG SCH ×2 (08:45→21:33)
[2019-10-05] MEDS: MYCOSTATIN SUSP PO SCH ×4 (08:45→21:33)
[2019-10-05] MEDS: LOVENOX SUBQ SCH ×2 (08:45→21:33)
[2019-10-05] MEDS: MIRALAX PEG SCH ×2 (08:46→21:33)
[2019-10-05] MEDS: PERCOCET-5 PEG PRN (12:54)
--- NOTE | 2019-10-05 17:57 | PROGRESS NOTE ---
DATE: 10/05/2019 INTERVAL HISTORY: No acute events overnight. SUBJECTIVE: Mr. Nieto does not appear in acute distress. He is not able to verbalize though he is able to answer simple questions. VITALS: Temperature 97.9 degrees, pulse 93, respiratory rate 12, blood pressure 123/77. He is saturating 100% on room air. PHYSICAL EXAMINATION: General: Not in any acute distress. Oral cavity is moist. Lungs: Air entry bilaterally equal. No wheeze, rhonchi, crackles. Cardiovascular: S1, S2 normal. No murmur or gallop. Abdomen: Soft. He has a PEG tube. Nontender. Active bowel sounds. Extremities: He does not have any left lower extremity. Right lower extremity, he has a below- knee amputation. He has crystal at the stump and there are some spots of blood around it, though no active oozing at the moment. He also has crystal in his right groin, which is dressed and healing well. There is no sign of pus at the moment. LABORATORY DATA: No CBC, BMP or INR today. Microbiology: No data. No new imaging. ASSESSMENT AND PLAN: 1. 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 The latest being in September 2019 status post PEG tube and right-sided hemiplegia. On current neurological examination he has a left-sided facial droop. He has a right-sided deviation of his tongue. His sensation and power are intact on left upper and lower extremity. His sensation is intact in right upper and lower extremity. Power is 0/5. Continue anticoagulation and with enoxaparin and warfarin and atorvastatin. He is able to take diet by mouth, which I will continue. 2. Right-sided iliac common femoral popliteal arterial thrombosis due to embolization from left ventricular thrombus, status post right above-knee amputation at [facility] in September 2019. Continue local wound care. He does have mild oozing of his wound but otherwise it appears healthy and healing well. Continue to apply dressing. 3. Left ventricular thrombus due to chronic systolic congestive heart failure and nonischemic cardiomyopathy with an ejection fraction of 10 to 15 percent. Continue therapeutic enoxaparin and warfarin until INR becomes more than 2. 4. History of nonischemic cardiomyopathy with ejection fraction of 10 to 15 percent. Continue carvedilol, atorvastatin and Entresto. 5. Others. Continue MiraLAX and docusate for constipation, vitamin D for supplementation, gabapentin for the neuropathic pain and Percocet as needed. DISPOSITION: Awaiting rehab bed. Plan of care discussed with the patient. I have not been able to get in touch with his family. I again conveyed to the nurse about informing me when the family comes back. cc: Tate Francisco MD
[2019-10-05] MEDS: LIPITOR PO SCH (21:33)
[2019-10-05] MEDS: COUMADIN PO SCH (21:35)
[2019-10-06] MEDS: NEURONTIN PO SCH ×4 (07:01→20:37)
[2019-10-06] MEDS: PRILOSEC PO SCH (07:01)
[2019-10-06 07:35] LABS: BASO# 0.09 X1000 (0.0-0.2); EOS# 0.25 X1000 (0.0-0.7); EOS% 2.7 % (0.0-10.0); HEMATOCRIT 38.4 % (42.0-52.0); HEMOGLOBIN 12.1 g/dL (14.0-18.0); IMM GRAN# 0.02 X1000 (0.0-0.04); IMM GRAN% 0.2 % (0.0-0.5); LYMPH# 2.86 X1000 (1.2-3.4); LYMPH% 30.9 % (20.5-51.1); MCH 29.1 PG (27-31); MCHC 31.5 g/dL (33-37); MCV 92.3 FL (81-99); MONO# 1.02 X1000 (0.11-0.59); NEUT# 5.02 X1000 (1.4-6.5); NEUT% 54.2 % (42.2-75.2); PLT 432 X1000 (130-400); RBC 4.16 XMIL (4.7-6.1); RDW 16.9 % (11.5-14.5); WBC 9.26 X1000 (4.8-10.8)
[2019-10-06 07:44] LABS: INR 1.74; PROTIME 20.7 Seconds (11.0-16.0)
[2019-10-06 08:00] LABS: AGAP 12; BUN 13 mg/dL (8-22); CALCIUM 9.3 mg/dL (8.8-10.2); CHLORIDE 104 mmol/L (98-107); COSMO 278; CREATININE 0.7 mg/dL (0.7-1.2); ESTIMATED GFR > 60; GLUCOSE 111 mg/dL (70-104); MAGNESIUM 1.6 mg/dL (1.5-2.7); POTASSIUM 4.3 mmol/L (3.5-5.1); SODIUM 139 mmol/L (136-145); TCO2 23 mmol/L (25-35)
[2019-10-06] MEDS: ENTRESTO 24 MG-26 MG TABLET PEG SCH ×2 (09:48→20:37)
[2019-10-06] MEDS: MYCOSTATIN SUSP PO SCH ×4 (09:48→20:37)
[2019-10-06] MEDS: ICAR-C PEG SCH ×2 (09:48→20:37)
[2019-10-06] MEDS: COREG PEG SCH ×2 (09:48→20:43)
[2019-10-06] MEDS: COLACE LIQUID PEG SCH ×2 (09:48→20:37)
[2019-10-06] MEDS: MIRALAX PEG SCH ×2 (09:49→20:37)
[2019-10-06] MEDS: LOVENOX SUBQ SCH ×2 (09:49→20:38)
[2019-10-06] MEDS: MAGNESIUM SULFATE 2 GM/S.W.I. 2 GM/50 ML IVPB IV SCH ×2 (16:57→20:36)
--- NOTE | 2019-10-06 17:29 | PROGRESS NOTE ---
DATE: 10/06/2019 INTERVAL HISTORY: No acute events overnight. SUBJECTIVE: Mr. Nieto does not appear in any acute distress. He did have a bowel movement. OBJECTIVE: Vitals: Temperature 98.2 degrees, pulse 98.2, respiratory 12, blood pressure 120 systolic , saturating 98% on room air. Input and output suggests he had a bowel movement. General: Not in acute distress. HEENT: Oral cavity is moist. Lungs: Air entry bilaterally equal. No wheeze. Cardiovascular: S1, S2 normal. No murmur, rub or gallop. Abdomen: Soft. He has a PEG tube. Nontender. Active bowel sounds. Extremities: He does not have left lower extremity edema. He has right lower extremity above-knee amputation. The stump is dressed with minimal blood soakage. He has crystal at the stump and some spots of blood around it. He also has crystal on the right groin region, which is not oozing. Neurologic: He is alert. He is nonverbal except occasional mumble. His tongue is deviating towards her right. When he smile, it is more prominent on the left side. He is not able to move right upper and lower extremities, though his sensations are intact. LABORATORY DATA: Suggestive of hemoglobin of 12.1, platelet 432,000. INR of 1.7. He has a BUN of 13, creatinine 0.7, magnesium of 1.6, which is being repleted. MICROBIOLOGY: No data. IMAGING: No new data. ASSESSMENT AND PLAN: 1. History of multiple ischemic as well as hemorrhagic cerebrovascular accidents since 2016, latest being in September 2019 status post percutaneous endoscopic gastrostomy tube and right- sided hemiplegia. Continue warfarin and enoxaparin as anticoagulation. He has been able to take by mouth and on mechanical soft diet. He is not listed to be taking any statin. His LDL cholesterol level was 108. I will continue him on atorvastatin at nighttime high dose. 2. Right-sided iliac, common femoral, popliteal arterial thrombosis due to embolization from left ventricular thrombus status post right above-knee amputation in [facility] in September 2019. Continue local wound care. His dressings appear to be healing well. His mild oozing is likely related to current anticoagulation. I discussed with the nurse about applying a firm dressing. 3. Left ventricular thrombus due to chronic systolic congestive heart failure and nonischemic cardiomyopathy with an ejection fraction of 10 to 15 percent. Continue therapeutic enoxaparin and warfarin until INR becomes more than 2. 4. History of nonischemic cardiomyopathy with ejection fraction of 10% to 15%. Continue carvedilol, atorvastatin, and Crestor. 5. Other: Continue MiraLAX and docusate for constipation; vitamin D for vitamin D deficiency and gabapentin for neuropathic pain as well as Percocet as needed. DISPOSITION: Awaiting rehab bed availability. Plan of care discussed with the nursing team. I had requested Brand Director to provide me contact information of the patient's girlfriend, but I am yet to receive that information. I have written on the patient's room board to let me know whenever the patient's family comes by so that I could update them. cc: Tate Francisco MD MTDD
[2019-10-06] MEDS: COUMADIN PO SCH (20:37)
[2019-10-06] MEDS: LIPITOR PO SCH (20:37)
[2019-10-07] MEDS: PERCOCET-5 PEG PRN (03:34)
[2019-10-07] MEDS: PRILOSEC PO SCH (06:40)
[2019-10-07] MEDS: NEURONTIN PO SCH ×2 (06:43→13:18)
[2019-10-07 07:45] LABS: INR 1.5; PROTIME 18.4 Seconds (11.0-16.0)
[2019-10-07] MEDS: MIRALAX PEG SCH (08:44)
[2019-10-07] MEDS: COREG PEG SCH (08:45)
[2019-10-07] MEDS: ENTRESTO 24 MG-26 MG TABLET PEG SCH (08:45)
[2019-10-07] MEDS: ICAR-C PEG SCH (08:45)
[2019-10-07] MEDS: COLACE LIQUID PEG SCH (08:45)
[2019-10-07] MEDS: MYCOSTATIN SUSP PO SCH ×4 (08:45→21:53)
[2019-10-07] MEDS: LOVENOX SUBQ SCH ×2 (08:45→21:53)
--- NOTE | 2019-10-07 17:24 | PROGRESS NOTE ---
DATE: 10/07/2019 INTERVAL HISTORY: No acute events overnight. SUBJECTIVE: Mr. Nieto does not appear in acute distress. His girlfriend is at bedside. VITALS: Temperature 98.1 degrees, pulse 95, respiratory rate 16, blood pressure 111/65, saturating 98% room air. PHYSICAL EXAMINATION: Not in any acute distress. Oral cavity is moist. He is not able to protrude his tongue today as he becomes confused and not able to follow that particular command. Air entry bilaterally equal. No wheeze, rhonchi, crackles. S1, S2 normal. No murmur, rub, or gallop.Abdomen: Soft, nontender. PEG tube is present. He has active bowel sounds. Does not have any lower extremity edema. Right lower extremity above-knee amputation, the stump is bleeding which is dressed. He also has some crystal in the right groin with some mucoid discharge. He is not able to verbalize. He is able to say yes or no intermittently. LABORATORY DATA: No CBC today. INR 1.5. MICROBIOLOGY: No data. IMAGING: No data. ASSESSMENT AND PLAN: 1. History of multiple ischemic as well as hemorrhagic cerebrovascular accident since 2016, latest being in September 2019. Status post percutaneous endoscopic gastrostomy tube and right- sided hemiplegia. Continue warfarin and enoxaparin until it is bridged with INR more than 2. Continue mechanical soft diet. Continue atorvastatin. 2. Right-sided iliac, common femoral, popliteal arterial thromboses due to embolization from left ventricular thrombus, status post right above-knee amputation in [facility] in September 2019. I will consult General Surgery team for wound evaluation considering minor bleeding at the stump and mucoid discharge at the right groin. 3. Left ventricular thrombus due to chronic systolic congestive heart failure and nonischemic cardiomyopathy with an ejection fraction of 10 to 15 percent. Continue therapeutic enoxaparin and warfarin until INR becomes more than 2, carvedilol, atorvastatin, and Entresto. 4. Others. Continue MiraLAX and docusate for constipation; vitamin D for vitamin D deficiency anemia; gabapentin for neuropathic pain, and Percocet as needed. DISPOSITION: Continue to monitor patient on surgical floor. The patient's girlfriend is at bedside, and I had a detailed discussion with her about the patient's medical condition, need for Berrios catheter considering risk associated with incontinence, risk of wound infection associated with incontinence. I also discussed with her about urinary tract infection associated with Berrios catheter. I discussed with her about risk versus benefit of Eliquis versus warfarin, and I answered all of her questions. She is in agreement with current plan. I will also consult General Surgery for right-sided groin and stump wound evaluation. I discussed the plan with the nurse. cc: Tate Francisco MD MTDD
--- NOTE | 2019-10-07 20:01 | GENERAL SURGERY CONSULTATION ---
DATE: 10/07/2019 CHIEF COMPLAINT: Right groin wound and right AK stump. I have been asked to see it regarding possible infection. HISTORY OF PRESENT ILLNESS: This is an unfortunate, 38-year-old, male who was admitted in August with what appeared to be stroke in the left hemisphere. He was found to have severe systolic congestive heart failure apparently from cardiomyopathy. He apparently had embolized clot to his brain and then also to his right leg. He ultimately was transferred to [facility] where he underwent AK amputation. He was transferred back here and has been back here for the remainder of his hospitalization apparently for the past 8 or 9 days. He has a history of a tracheostomy in the past as a result of ARDS when he was 21. SOCIAL HISTORY: He is and has children. He smokes cigarettes. He smokes marijuana. He does drink alcohol. MEDICATIONS: Listed. ALLERGIES: He has no known drug allergies. REVIEW OF SYSTEMS: Extensive as noted in his history and past history. It involves his cardiac system, respiratory system, and neurologic system. PHYSICAL EXAMINATION TODAY: vital signs: He is afebrile, heart rate 95, blood pressure 111/65. general: He is awake and alert. He has limited speech. pulmonary: Bilateral breath sounds. Abdomen: Soft. Extremities: He has an incision in his right groin with crystal. He has an AK stump with crystal. His left leg is without swelling. LABORATORIES: White count is 9300 as of yesterday. ProTime is 18.4 with an INR 1.5. He is on therapeutic Lovenox. He has been transferred to warfarin or Coumadin. PLAN: The plan will be to remove his crystal. Since he is essentially 3 weeks out now, he can probably heal his wound in his groin with appropriate enzymatic ointment like Santyl. cc: Daniele Westbrook MD
[2019-10-07] MEDS: ENTRESTO 24 MG-26 MG TABLET PO SCH (21:52)
[2019-10-07] MEDS: LIPITOR PO SCH (21:52)
[2019-10-07] MEDS: COUMADIN PO SCH (21:52)
[2019-10-07] MEDS: COREG PO SCH (21:53)
[2019-10-07] MEDS: COLACE LIQUID PO SCH (21:53)
[2019-10-07] MEDS: MIRALAX PO SCH (21:54)
[2019-10-08] MEDS: NEURONTIN PO SCH ×3 (00:32→15:07)
[2019-10-08] MEDS: PERCOCET-5 PO PRN (00:32)
[2019-10-08] MEDS: PRILOSEC PO SCH (06:42)
--- NOTE | 2019-10-08 07:09 | GENERAL SURGERY PROGRESS NOTE ---
DATE: 10/08/2019 He is afebrile. The plan will be to remove his crystal today and we will order some Santyl for his groin. cc: Daniele Westbrook MD
[2019-10-08 07:42] LABS: BASO# 0.04 X1000 (0.0-0.2); BASO% 0.2 % (0.0-0.8); EOS# 0.29 X1000 (0.0-0.7); EOS% 1.7 % (0.0-10.0); HEMATOCRIT 35.6 % (42.0-52.0); HEMOGLOBIN 11.1 g/dL (14.0-18.0); IMM GRAN# 0.02 X1000 (0.0-0.04); IMM GRAN% 0.1 % (0.0-0.5); LYMPH% 15.2 % (20.5-51.1); MCHC 31.2 g/dL (33-37); MONO# 1.41 X1000 (0.11-0.59); MONO% 8.2 % (1.7-9.3); MPV 9.2 FL (7.4-10.4); NEUT% 74.6 % (42.2-75.2); PLT 352 X1000 (130-400); RBC 3.83 XMIL (4.7-6.1); WBC 17.16 X1000 (4.8-10.8)
[2019-10-08 07:57] LABS: INR 1.3; PROTIME 16.4 Seconds (11.0-16.0)
[2019-10-08 08:21] LABS: AGAP 12; BUN 21 mg/dL (8-22); CALCIUM 9.4 mg/dL (8.8-10.2); CHLORIDE 103 mmol/L (98-107); COSMO 282; CREATININE 0.7 mg/dL (0.7-1.2); ESTIMATED GFR > 60; GLUCOSE 94 mg/dL (70-104); MAGNESIUM 1.4 mg/dL (1.5-2.7); SODIUM 140 mmol/L (136-145); TCO2 25 mmol/L (25-35)
[2019-10-08] MEDS: MIRALAX PO SCH (10:08)
[2019-10-08] MEDS: ENTRESTO 24 MG-26 MG TABLET PO SCH ×2 (10:08→20:30)
[2019-10-08] MEDS: VITAMIN D PO SCH (10:08)
[2019-10-08] MEDS: ICAR-C PO SCH (10:08)
[2019-10-08] MEDS: COREG PO SCH ×2 (10:08→20:30)
[2019-10-08] MEDS: MYCOSTATIN SUSP PO SCH ×4 (10:09→20:30)
[2019-10-08] MEDS: COLACE LIQUID PO SCH ×2 (10:09→20:30)
[2019-10-08] MEDS: LOVENOX SUBQ SCH ×2 (10:09→20:31)
[2019-10-08] MEDS: DUONEB (A & A) INH PRN (10:26)
[2019-10-08] MEDS ORDERED: ROCEPHIN 1 GM in NS 50 ML IV SCH (10:45)
--- NOTE | 2019-10-08 11:26 | Diag Imaging Result Doc PS360 ---
EXAM: CHEST-1 VIEW INDICATION: positive sepsis screen TECHNIQUE: One view COMPARISON: 09/29/2019 FINDINGS: The lungs are grossly clear. There is no discrete pleural fluid collection or pneumothorax. There is stable cardiomegaly. Central vasculature is unremarkable. IMPRESSION: Stable cardiomegaly. No definite acute chest pathology by plain radiograph. Electronically signed by Joseph Tirado 10/08/2019 11:24 AM
[2019-10-08 11:52] LABS: URINE SOURCE CATH
[2019-10-08 11:54] LABS: BILIRUBIN URINE NEGATIVE (NEGATIVE); BLOOD URINE MODERATE (NEGATIVE); COLOR YELLOW; GLUCOSE URINE NEGATIVE (NEGATIVE); KETONE URINE NEGATIVE (NEGATIVE); LEUKOCYTES URINE LARGE (NEGATIVE); NITRITE URINE NEGATIVE (NEGATIVE); PH URINE 6.5; PROTEIN URINE 200 mg/dL (NEGATIVE); TURBIDITY URINE TURBID (CLEAR); UROBILINOGEN URINE NORMAL (NORMAL)
[2019-10-08 12:07] LABS: UR EPITHELIAL CELLS <10 /HPF (<10); URINE BACTERIA 1+ /HPF; URINE RBC TNTC /HPF (<10); URINE WBC TNTC /HPF (<10)
[2019-10-08 12:08] LABS: URINE CASTS NONE SEEN; URINE YEAST NONE SEEN
[2019-10-08] MEDS ORDERED: ROCEPHIN 1 GM in NS 50 ML IV ONE (15:18)
[2019-10-08] MEDS ORDERED: LR 500 ML IV ONE (15:19)
[2019-10-08] MEDS ORDERED: LR 1,000 ML IV ONE (15:19)
--- NOTE | 2019-10-08 16:06 | PROGRESS NOTE ---
DATE: 10/08/2019 INTERVAL HISTORY: The patient had started becoming tachycardic and he also had leukocytosis, so sepsis protocol was started. The patient will be given intravenous fluid resuscitation and intravenous antibiotics. SUBJECTIVE: Mr. Nieto appears slightly lethargic than his usual self, though he denies any particular complaints. OBJECTIVE: Vital Signs: He has been afebrile. Temperature of 98.8 degrees, pulse 52, though on bedside monitor, it is 112, respiratory rate 14, blood pressure 103/56. He is saturating 98% on room air. General: Slightly lethargic. HEENT: Oral cavity is moist. Lungs: Air entry bilaterally equal. No wheezes, rhonchi, or crackles. Cardiovascular: S1, S2 normal. Tachycardic. No murmur or gallop. Abdomen: Soft. PEG tube site appears noninflamed. Active bowel sounds. Extremities: No lower extremity edema. Right lower extremity, above-knee amputation. The stump has slight bleeding with sutures on. He also has crystal in the right groin with some mucoid discharge. Neurologic: He is not able to verbalize. He is able to say yes or no intermittently. LABS: Suggestive of leukocytosis of 17,000, hemoglobin 11.8, platelet 352,000. His electrolytes are normal except magnesium of 1.4, BUN 21, creatinine 0.7. Lactate has been normal. Urinalysis; too many WBCs. Microbiology; blood culture and urine culture are pending. Chest x-ray did not have any acute cardiopulmonary process. ASSESSMENT AND PLAN: 1. Sepsis likely due to catheter-associated urinary tract infection. His urine catheter has been changed. Unfortunately, considering his incontinence and multiple strokes, would likely need urine catheter to prevent contamination of his right groin and right lower extremity wound. His catheter has been changed. I will give him 1.5 L of intravenous fluid boluses and start him on intravenous lactated Ringer's continuously. I will also give him intravenous ceftriaxone. Follow up with blood culture urine culture data. 2. History of multiple ischemic as well as hemorrhagic cerebrovascular accidents since 2016, latest being September 2019. 3. Status post PEG tube and right-sided hemiplegia. Increase the dose of warfarin and continue enoxaparin until INR is more than 2. Continue mechanical soft diet and atorvastatin. 4. Right-sided iliac, common femoral, popliteal arterial thrombosis due to embolization from left ventricular thrombus, status post right above-knee amputation at [facility] in September 2019. Continue local wound dressing with Santyl. His crystal on the right groin have been removed. His bleeding at the right stump has been stable. He has sutures on the right stump. 5. Left ventricular thrombus due to chronic systolic congestive heart failure and nonischemic cardiomyopathy with ejection fraction of 10% to 15%. Continue therapeutic enoxaparin and warfarin until INR becomes more than 2, carvedilol atorvastatin, and Entresto. 6. Others; continue MiraLAX and docusate for constipation; vitamin D for vitamin D deficiency; gabapentin for neuropathic pain; Percocet for chronic pain; magnesium intravenously for hypomagnesemia. DISPOSITION: Continue to monitor patient on surgical floor. Plan of care extensively discussed with the patient and nursing team. All of their questions have been answered. cc: Tate Francisco MD
[2019-10-08] MEDS: MAGNESIUM SULFATE 2 GM/S.W.I. 2 GM/50 ML IVPB IV SCH ×2 (18:18→20:30)
[2019-10-08] MEDS: LR 1,000 ML IV SCH (18:18)
[2019-10-08] MEDS: SANTYL OINT TOP SCH (18:18)
[2019-10-08] MEDS: COUMADIN PO SCH (20:31)
[2019-10-08] MEDS: LIPITOR PO SCH (20:31)
[2019-10-09] MEDS: NEURONTIN PO SCH ×3 (06:07→22:22)
[2019-10-09] MEDS: PRILOSEC PO SCH (06:08)
[2019-10-09 08:44] LABS: BASO# 0.06 X1000 (0.0-0.2); BASO% 0.4 % (0.0-0.8); EOS# 0.17 X1000 (0.0-0.7); HEMATOCRIT 35.5 % (42.0-52.0); HEMOGLOBIN 11.1 g/dL (14.0-18.0); IMM GRAN# 0.05 X1000 (0.0-0.04); IMM GRAN% 0.3 % (0.0-0.5); LYMPH# 2.72 X1000 (1.2-3.4); LYMPH% 16.2 % (20.5-51.1); MCH 28.9 PG (27-31); MCHC 31.3 g/dL (33-37); MCV 92.4 FL (81-99); MONO# 1.56 X1000 (0.11-0.59); MONO% 9.3 % (1.7-9.3); MPV 9.5 FL (7.4-10.4); NEUT# 12.24 X1000 (1.4-6.5); NEUT% 72.8 % (42.2-75.2); PLT 307 X1000 (130-400); RBC 3.84 XMIL (4.7-6.1); RDW 17.1 % (11.5-14.5)
[2019-10-09 09:08] LABS: INR 1.37; PROTIME 17.1 Seconds (11.0-16.0)
[2019-10-09 09:09] LABS: AGAP 12; BUN 11 mg/dL (8-22); CALCIUM 9.2 mg/dL (8.8-10.2); CHLORIDE 103 mmol/L (98-107); COSMO 278; CREATININE 0.6 mg/dL (0.7-1.2); ESTIMATED GFR > 60; GLUCOSE 93 mg/dL (70-104); MAGNESIUM 1.8 mg/dL (1.5-2.7); POTASSIUM 3.7 mmol/L (3.5-5.1); SODIUM 140 mmol/L (136-145); TCO2 25 mmol/L (25-35)
[2019-10-09] MEDS: ROCEPHIN 2 GM in NS 50 ML IV SCH (09:17)
[2019-10-09] MEDS: LR 1,000 ML IV SCH (09:25)
[2019-10-09] MEDS: COLACE LIQUID PO SCH ×2 (09:25→22:21)
[2019-10-09] MEDS: ENTRESTO 24 MG-26 MG TABLET PO SCH ×2 (09:25→22:22)
[2019-10-09] MEDS: LOVENOX SUBQ SCH ×2 (09:25→22:22)
[2019-10-09] MEDS: MYCOSTATIN SUSP PO SCH ×4 (09:25→22:21)
[2019-10-09] MEDS: COREG PO SCH ×2 (09:25→22:22)
[2019-10-09] MEDS: MIRALAX PO SCH ×3 (09:25→22:23)
[2019-10-09] MEDS: ICAR-C PO SCH (09:25)
[2019-10-09] MEDS: SANTYL OINT TOP SCH (09:26)
--- NOTE | 2019-10-09 11:11 | GENERAL SURGERY PROGRESS NOTE ---
DATE: 10/09/2019 We removed the crystal from Mr. Nieto's groin and stump. We will start using Santyl on his right groin. cc: Daniele Westbrook MD
[2019-10-09] MEDS ORDERED: VANCOMYCIN IV PER PHARMACY MISC SCH (16:15)
[2019-10-09] MEDS ORDERED: VANCOMYCIN 2,000 MG in NS 500 ML IV ONE (17:00)
[2019-10-09] MEDS: LIPITOR PO SCH (22:21)
[2019-10-09] MEDS: COUMADIN PO SCH (22:22)
--- NOTE | 2019-10-09 22:36 | PROGRESS NOTE ---
DATE: 10/09/2019 INTERVAL HISTORY: No acute events overnight. He was started on intravenous fluids for suspected sepsis following which his heart rate improved. He also had an episode of fever. SUBJECTIVE: Mr. Nieto appears much more awake and alert today. Denies any complaints. VITALS: Currently temperature of 98.2 degrees, He had a T-max of 101 degrees yesterday night. Pulse of a 94, respiratory 20, blood pressure 108/68. He is saturating 100% room air. PHYSICAL EXAMINATION: General: He is not in acute distress. Oral cavity is moist. Lungs: Air entry bilaterally equal. No wheeze, rhonchi, crackles. Cardiovascular: S1, S2 normal. No murmur or gallop. Abdomen: Soft. PEG tube site appears noninflamed. He has active bowel sounds. Genitourinary: He has a urine catheter. Extremities: No lower extremity edema. Right lower extremity has above-knee amputation. The stump has sutures with mild oozing of blood. His crystal in the right groin have been removed. There was some mucoid discharge, which is growing gram-positive cocci. Neurologic: He is alert. He is not able to verbalize, though he does have deviation of his tongue towards the right. He has left-sided facial droop. He is able to lift upper and lower extremity above ground level. He has a right-sided hemiparesis. LABS: Suggestive of WBC of 16,000, hemoglobin 11.1, platelet 307,000, INR 1.3, BUN 11, creatinine 0.6. Microbiology: Groin culture growing gram-positive cocci. Urine culture growing gram- negative cris. ASSESSMENT AND PLAN: 1. Sepsis due to catheter associated urinary tract infection with gram-negative cris. Considering his urine incontinence, would likely need a urine catheter to prevent contamination of his right groin and right lower extremity wound. His urine catheter has been changed. Continue intravenous fluids for another 24 hours. Intravenous ceftriaxone. Follow up final culture data. 2. Gram-positive bacteria growing from the right groin. I have added intravenous vancomycin. His right groin wound does have some mucoid discharge. It does not look grossly infected. Follow up final culture sensitivity data. After discussion with surgical team, I may decide to discontinue gram-positive coverage. 3. History of multiple ischemic as well as hemorrhagic cerebrovascular accidents since 2016, latest being in 2020 status post percutaneous endoscopic gastrostomy tube and right-sided hemiplegia. Continue current dose of warfarin and enoxaparin until INR becomes more than 2. Continue mechanical soft diet and atorvastatin. 4. Right-sided iliac common femoral popliteal arterial thrombosis due to embolization from left ventricular thrombus, status post right above-knee amputation at [facility] in September 2019. Continue local wound dressing with Santyl. 5. Left ventricular thrombus due to chronic systolic congestive heart failure and nonischemic cardiomyopathy with an ejection fraction of 10 to 15 percent. Continue therapeutic enoxaparin and warfarin until INR becomes more than 2, carvedilol atorvastatin, and Entresto. 6. Others: Continue MiraLAX and docusate for constipation and vitamin D for vitamin D deficiency; gabapentin for neuropathic pain; Percocet for chronic pain. He received magnesium intravenously for hypomagnesemia. 7. Disposition: The patient does not have any insurance and social secretary have been working with [facility] to see if he could be availed a special rehab bed. I had detailed discussion with plan of care with the patient's girlfriend on 10/07/2019. All of her questions were answered. cc: Tate Francisco MD MTD
[2019-10-10] MEDS: LR 1,000 ML IV SCH ×3 (01:53→08:22)
[2019-10-10] MEDS: PERCOCET-5 PO PRN ×2 (04:15→10:30)
[2019-10-10] MEDS: VANCOMYCIN 1,500 MG in NS 250 ML IV SCH ×2 (06:12→17:12)
[2019-10-10] MEDS: PRILOSEC PO SCH (06:15)
[2019-10-10] MEDS: NEURONTIN PO SCH ×3 (06:15→20:22)
[2019-10-10 07:33] LABS: INR 1.36
[2019-10-10] MEDS: ROCEPHIN 2 GM in NS 50 ML IV SCH (08:04)
[2019-10-10] MEDS: ENTRESTO 24 MG-26 MG TABLET PO SCH ×2 (08:05→20:22)
[2019-10-10] MEDS: LOVENOX SUBQ SCH ×2 (08:05→20:24)
[2019-10-10] MEDS: COLACE LIQUID PO SCH ×3 (08:05→20:25)
[2019-10-10] MEDS: MIRALAX PO SCH ×3 (08:06→20:25)
[2019-10-10] MEDS: ICAR-C PO SCH (08:06)
[2019-10-10] MEDS: MYCOSTATIN SUSP PO SCH ×4 (08:06→20:21)
[2019-10-10] MEDS: COREG PO SCH ×2 (08:06→20:22)
[2019-10-10] MEDS: SANTYL OINT TOP SCH (08:07)
[2019-10-10] MEDS: LIPITOR PO SCH (20:22)
[2019-10-10] MEDS: COUMADIN PO SCH (20:22)
--- NOTE | 2019-10-10 20:38 | PROGRESS NOTE ---
DATE: 10/10/2019 SUBJECTIVE: The patient is resting comfortably in bed. He has no complaints at this time. He denies having any pain, nausea, or vomiting. He was afebrile overnight. OBJECTIVE: Vital Signs: Temperature 97.9 degrees blood pressure 145/83, heart rate 104, respirations 20, O2 saturation 97% on room air, intake 4.9 L. Output 1.3 L. General: This is a young male lying in bed in no acute distress. Heart: S1, S2 normal. Tachycardic. Lungs: Clear to auscultation bilaterally. Abdomen: Positive bowel sounds. Soft, nontender, nondistended. Extremities: The patient has a right AKA. No edema noted in the left leg. Groin: The patient has a wound with mild yellowish discharge. Neurologic: The patient is alert and oriented x4 with right hemiplegia. LABS: INR 1.3. ASSESSMENT AND PLAN: 1. Sepsis secondary to right groin wound and urinary tract infection. The wound culture is growing MRSA and a gram-negative cris. The patient is currently on vancomycin and Rocephin. We will continue with wound care to the groin area. 2. Right groin wound. Continue with vancomycin. We will await the results of the gram-negative cris in the culture. The patient is currently on Rocephin. 3. 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 The patient's INR remains subtherapeutic. We will continue on Lovenox and warfarin. Will monitor the INR daily. 4. Left ventricular thrombus. Aware. Continue on the anticoagulation as ordered. 5. Chronic systolic congestive heart failure with an ejection fraction of 10 to 15 percent. The patient is not in exacerbation. Continue on Entresto, Coreg and atorvastatin. 6. Constipation. Improved. The patient is having daily bowel movements. 7. Urinary tract infection. The urine culture is growing a gram-negative cris. We will continue on Rocephin pending culture results. 8. Disposition. Continue with physical therapy. Technical Program Manager is working on rehab placement. cc: Alexa Enriquez MD [facility]
[2019-10-11] MEDS: LR 1,000 ML IV SCH (01:19)
[2019-10-11] MEDS: PRILOSEC PO SCH (06:58)
[2019-10-11] MEDS: NEURONTIN PO SCH ×5 (06:58→21:19)
--- NOTE | 2019-10-11 07:32 | INFECTIOUS DISEASE CONSULT REP ---
DATE: 10/11/2019 CONCLUSION: The patient has a right postoperative groin infection with methicillin-resistant Staphylococcus aureus and a gram-negative cris which has not yet been identified. The patient also has a gram-negative cris urinary tract infection. RECOMMENDATIONS: The patient is on vancomycin and Rocephin. I think this is a reasonable combination pending the results of cultures. Some of the side effects of the antibiotics, including rash, diarrhea, renal toxicity, and ototoxicity, were explained to the patient. DISCUSSION: The patient has had a stroke large right-sided stroke, and he is unable to answer any question I asked him, and he has right-sided paralysis and expressive aphasia, and he also cannot answer any question I offer by shaking his head yes or no. According to the information in the computer, the patient the patient had swelling of the right leg. He was found to have extensive arterial and venous clots in his right lower leg. He was sent to [facility] under the care of Dr. Mahoney who appears to have tried to do a vascular procedure on the leg and then he did do an [id number] amputation. The patient has in the right groin he has an infection in one of the operative incisions made. The cultures from the leg and the urine are as mentioned above. PAST MEDICAL HISTORY: 1. Positive for ischemic stroke. 2. Hemorrhagic stroke. 3. Extensive arterial thrombus in the right femoral artery. 4. Chronic systolic congestive heart failure with an ejection fraction of 10% to 20%. 5. Left ventricular thrombus. 6. Hypertension. 7. History of medical noncompliance. 8. History of ARDS secondary to bronchitis and pneumonia at age 21. He had to have a tracheostomy, which has since been removed. PAST SURGICAL HISTORY: Positive for tracheostomy with reversal. He has had a right above-the- knee amputation, and he has had vascular surgery on the right leg. SOCIAL HISTORY: The patient lives with his significant other. He has 4 children. He smokes cigarettes and marijuana. He drinks alcoholic beverages. ALLERGIES: His chart lists no known drug allergies. MEDICATIONS: The patient's home medications include Coreg, Lasix, and Entresto, and Coumadin. PHYSICAL EXAMINATION: Vital Signs: Temperature is 98.5 degrees, pulse 107, respirations 19, blood pressure 134/87. Height and Weight: The patient is 5 feet 7 inches tall and weighs 160 pounds. General: This is an ill-appearing young male. He is in no acute distress. Head/Eyes/Ears/Nose/Throat: He appears to be able to hear my spoken words and see near objects. I did not see any white patches in his mouth. There was no drainage from his nose or ears. Neck: The patient did not seem to have any pain when I moved his neck in multiple positions. Lungs: Clear to auscultation. Cardiovascular: Heart rate is regular. Abdomen: Soft and apparently not tender. In the right groin area, there is an incision that has a partial opening. There is no purulence coming from the incision site at this time. This is the site, however, where the patient's culture was taken and it grew methicillin-resistant Staphylococcus aureus and a gram- negative cris. The patient's incision on the right leg is intact. There is no drainage coming from the incision. Neurologic: The patient is awake. He did follow 1 request I made of him and that was to move his left arm. He did not move his left leg when I asked him to, and he does have a right-sided hemiparalysis. Thank you for the consultation. cc: Edy Sandhu MD
[2019-10-11 07:41] LABS: BASO# 0.03 X1000 (0.0-0.2); BASO% 0.3 % (0.0-0.8); EOS% 2.9 % (0.0-10.0); HEMATOCRIT 35.4 % (42.0-52.0); HEMOGLOBIN 11.1 g/dL (14.0-18.0); IMM GRAN# 0.02 X1000 (0.0-0.04); IMM GRAN% 0.2 % (0.0-0.5); LYMPH# 2.57 X1000 (1.2-3.4); LYMPH% 24.8 % (20.5-51.1); MCH 28.8 PG (27-31); MCHC 31.4 g/dL (33-37); MCV 91.7 FL (81-99); MONO# 0.96 X1000 (0.11-0.59); MONO% 9.3 % (1.7-9.3); MPV 9.4 FL (7.4-10.4); NEUT# 6.47 X1000 (1.4-6.5); NEUT% 62.5 % (42.2-75.2); PLT 301 X1000 (130-400); RBC 3.86 XMIL (4.7-6.1); RDW 16.4 % (11.5-14.5); WBC 10.35 X1000 (4.8-10.8)
[2019-10-11 07:48] LABS: INR 1.55; PROTIME 18.9 Seconds (11.0-16.0)
[2019-10-11 07:57] LABS: AGAP 10; BUN 12 mg/dL (8-22); CALCIUM 9.3 mg/dL (8.8-10.2); CHLORIDE 101 mmol/L (98-107); COSMO 274; CREATININE 0.6 mg/dL (0.7-1.2); ESTIMATED GFR > 60; GLUCOSE 112 mg/dL (70-104); MAGNESIUM 1.3 mg/dL (1.5-2.7); POTASSIUM 3.9 mmol/L (3.5-5.1); SODIUM 137 mmol/L (136-145); TCO2 26 mmol/L (25-35)
[2019-10-11] MEDS: ROCEPHIN 2 GM in NS 50 ML IV SCH (09:28)
[2019-10-11] MEDS: VANCOMYCIN 1,800 MG in NS 250 ML IV SCH ×2 (10:24→22:15)
[2019-10-11] MEDS: COREG PO SCH ×2 (10:27→21:20)
[2019-10-11] MEDS: LOVENOX SUBQ SCH ×2 (10:27→21:20)
[2019-10-11] MEDS: COLACE LIQUID PO SCH ×2 (10:27→21:19)
[2019-10-11] MEDS: ENTRESTO 24 MG-26 MG TABLET PO SCH ×2 (10:27→21:20)
[2019-10-11] MEDS: MYCOSTATIN SUSP PO SCH ×5 (10:27→21:20)
[2019-10-11] MEDS: ICAR-C PO SCH (10:27)
[2019-10-11] MEDS: MIRALAX PO SCH ×3 (10:27→21:20)
[2019-10-11] MEDS: SANTYL OINT TOP SCH (10:33)
[2019-10-11] MEDS ORDERED: MAGNESIUM SULFATE 2 GM/S.W.I. 2 GM/50 ML IVPB IV ONE (20:00)
[2019-10-11] MEDS: LIPITOR PO SCH (21:20)
[2019-10-11] MEDS: COUMADIN PO SCH (21:20)
[2019-10-12] MEDS: PRILOSEC PO SCH (06:34)
[2019-10-12] MEDS: NEURONTIN PO SCH ×3 (06:34→21:45)
[2019-10-12 08:14] LABS: INR 1.76; PROTIME 20.9 Seconds (11.0-16.0)
[2019-10-12 08:17] LABS: HEMATOCRIT 35.2 % (42.0-52.0); HEMOGLOBIN 11.3 g/dL (14.0-18.0); MCH 29.6 PG (27-31); MCHC 32.1 g/dL (33-37); MCV 92.1 FL (81-99); MPV 9.7 FL (7.4-10.4); RBC 3.82 XMIL (4.7-6.1); RDW 16.8 % (11.5-14.5); WBC 8.67 X1000 (4.8-10.8)
[2019-10-12 09:13] LABS: AGAP 13; BUN 10 mg/dL (8-22); CHLORIDE 103 mmol/L (98-107); COSMO 280; CREATININE 0.6 mg/dL (0.7-1.2); ESTIMATED GFR > 60; GLUCOSE 98 mg/dL (70-104); MAGNESIUM 1.6 mg/dL (1.5-2.7); PHOSPHORUS 4.9 mg/dL (2.7-4.5); POTASSIUM 3.8 mmol/L (3.5-5.1); SODIUM 141 mmol/L (136-145); TCO2 25 mmol/L (25-35)
[2019-10-12] MEDS ORDERED: INVANZ 1 GM/NS 1 GM/50 ML IVPB IV SCH (09:30)
[2019-10-12] MEDS: ICAR-C PO SCH (10:53)
[2019-10-12] MEDS: MYCOSTATIN SUSP PO SCH ×4 (10:53→21:44)
[2019-10-12] MEDS: COLACE LIQUID PO SCH ×2 (10:53→21:44)
[2019-10-12] MEDS: ENTRESTO 24 MG-26 MG TABLET PO SCH ×2 (10:53→21:45)
[2019-10-12] MEDS: LOVENOX SUBQ SCH ×2 (10:53→21:45)
[2019-10-12] MEDS: COREG PO SCH ×2 (10:53→21:45)
[2019-10-12] MEDS: LEVAQUIN PO SCH (10:53)
[2019-10-12] MEDS: DOXYCYCLINE PO SCH ×2 (10:53→21:44)
[2019-10-12] MEDS: SANTYL OINT TOP SCH (10:54)
[2019-10-12] MEDS: MIRALAX PO SCH ×2 (10:54→21:43)
--- NOTE | 2019-10-12 11:26 | GENERAL SURGERY PROGRESS NOTE ---
DATE: 10/12/2019 Mr. Nieto's groin is inspected. He needs some Santyl on it. The stitches are removed from his stump. No further intervention is needed. He will need simply long-term wound care with Santyl on his groin until it completely heals, which it should do. cc: Daniele Westbrook MD
[2019-10-12] MEDS: PERCOCET-5 PO PRN ×2 (11:33→21:54)
--- NOTE | 2019-10-12 12:01 | INFECTIOUS DISEASE PROGRESS NO ---
DATE: 10/12/2019 The patient has a methicillin-resistant Staphylococcus aureus and Escherichia coli infection of his right groin wound, and he also has an extended-spectrum beta-lactamase producing Klebsiella urinary tract infection. The patient's methicillin-resistant Staphylococcus aureus is susceptible to doxycycline, and the patient's Escherichia coli and Klebsiella are susceptible to Levaquin. Therefore, the patient is going to go home on doxycycline 100 mg p.o. every 12 hours and Levaquin 500 mg p.o. daily. Both of these will be for 2 weeks, and I have written orders for both antibiotics to be discontinued on October 26 at 12 noon. Some of the side effects of the antibiotics, including rash, diarrhea, seizures, tendon rupture, and photosensitivity have been explained to the patient. I am signing off of the patient's case now. cc: Edy Sandhu MD MTDD
--- NOTE | 2019-10-12 20:46 | PROGRESS NOTE ---
DATE: 10/12/2019 SUBJECTIVE: The patient is resting comfortably in bed. He has no complaints. OBJECTIVE: Vital signs: Temperature 98.6 degrees, blood pressure 119/92, heart rate 73, respirations 18, O2 saturations 100% on room air.General: This is a young male lying in bed in no acute distress. Heart: S1, S2 normal. Regular rate and rhythm. Lungs clear to auscultation bilaterally. Abdomen: Positive bowel sounds. Soft, nontender, nondistended. Extremities: The patient has a right AKA stump. Neurologic: The patient is alert and oriented x3. The patient has right-sided hemiplegia. LABORATORY DATA: INR 1.7. ASSESSMENT AND PLAN: 1. Sepsis secondary to right groin wound and urinary tract infection. The sepsis has resolved. 2. Right groin infection secondary to Escherichia coli and methicillin-resistant Staphylococcus aureus. The wound appears to be healing. The case was discussed with Dr. Sandhu, and he has now switched the patient to oral doxycycline and oral Levaquin. Continue with wound care. 3. Urinary tract infection secondary to Klebsiella. Continue with Levaquin. 4. Left ventricular thrombus. Continue on warfarin and Lovenox. The INR is slowly increasing. 5. Chronic systolic congestive heart failure. Stable. Continue on Entresto, Coreg and atorvastatin. 6. Ischemic cardiomyopathy with an ejection fraction of 10% to 15%. Aware. 7. 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 Continue on the current anticoagulation. Continue with physical therapy. 8. Constipation, improved. The patient is having daily bowel movements. 9. Disposition. [facility] have stated that they would not have a scholarship bed available for the patient, so the patient will likely be discharged home with home health services, to include physical therapy and wound care once the INR is therapeutic. cc: Alexa Enriquez MD
[2019-10-12] MEDS: COUMADIN PO SCH (21:45)
[2019-10-12] MEDS: LIPITOR PO SCH (21:45)
[2019-10-13] MEDS: PRILOSEC PO SCH (07:44)
[2019-10-13] MEDS: NEURONTIN PO SCH ×3 (07:44→22:34)
[2019-10-13 08:05] LABS: INR 1.87
[2019-10-13 11:23] LABS: AGAP 13; BUN 16 mg/dL (8-22); CALCIUM 9.5 mg/dL (8.8-10.2); CHLORIDE 103 mmol/L (98-107); COSMO 280; CREATININE 0.7 mg/dL (0.7-1.2); ESTIMATED GFR > 60; GLUCOSE 96 mg/dL (70-104); MAGNESIUM 1.4 mg/dL (1.5-2.7); POTASSIUM 3.9 mmol/L (3.5-5.1); SODIUM 140 mmol/L (136-145); TCO2 24 mmol/L (25-35)
[2019-10-13] MEDS: MYCOSTATIN SUSP PO SCH ×4 (11:51→23:17)
[2019-10-13] MEDS: ICAR-C PO SCH (11:51)
[2019-10-13] MEDS: ENTRESTO 24 MG-26 MG TABLET PO SCH ×2 (11:51→22:34)
[2019-10-13] MEDS: COLACE LIQUID PO SCH ×2 (11:51→22:34)
[2019-10-13] MEDS: LEVAQUIN PO SCH (11:51)
[2019-10-13] MEDS: DOXYCYCLINE PO SCH ×2 (11:51→22:35)
[2019-10-13] MEDS: MIRALAX PO SCH ×2 (11:51→22:34)
[2019-10-13] MEDS: COREG PO SCH ×2 (11:52→22:34)
[2019-10-13] MEDS: LOVENOX SUBQ SCH ×2 (11:52→22:35)
[2019-10-13] MEDS ORDERED: MAGNESIUM SULFATE 2 GM/S.W.I. 2 GM/50 ML IVPB IV ONE (14:00)
--- NOTE | 2019-10-13 19:06 | PROGRESS NOTE ---
DATE: 10/13/2019 SUBJECTIVE: The patient is resting comfortably in bed. He has no complaints. OBJECTIVE: Vital Signs: Temperature 98.1 degrees, blood pressure 124/89, heart rate 100, respirations 20, O2 saturation is 99% on room air. General: This is a young male lying in bed in no acute distress. Heart: S1, S2 normal. Tachycardic. Lungs: Clear to auscultation bilaterally. Abdomen: Positive bowel sounds. Soft, nontender, nondistended. Extremities: Right AKA. Neurologic: Alert and oriented x3. The patient has right-sided hemiplegia. LABORATORY DATA: INR 1.87. ASSESSMENT AND PLAN: 1. Sepsis secondary to right groin wound and urinary tract infection. The sepsis has resolved. 2. Right groin infection secondary to Escherichia coli and methicillin-resistant Staphylococcus aureus. The patient is now on Levaquin and doxycycline, which he will continue upon discharge. Continue with wound care. 3. Urinary tract infection secondary to Klebsiella. Continue on Levaquin. 4. Left ventricular thrombus. The INR is slowly approaching a therapeutic range. Continue on warfarin and Lovenox. 5. Chronic systolic congestive heart failure. Continue on Entresto, Coreg, and atorvastatin. 6. Ischemic cardiomyopathy with an ejection fraction of 10 to 15 percent. Aware. 7. 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 Aware. Continue with physical therapy. 8. Constipation. Improved. 9. Disposition. Discussed this with the patient, his girlfriend, and [employer]. The patient will be discharged with supplies to include a bed, bedside commode, and other necessary supplies, once the INR is therapeutic. The patient and his family are in agreement with the discharge plan. cc: Alexa Enriquez MD [facility]
[2019-10-13] MEDS: LIPITOR PO SCH (22:34)
[2019-10-13] MEDS: COUMADIN PO SCH (22:35)
[2019-10-13] MEDS: SANTYL OINT TOP SCH (23:16)
[2019-10-14] MEDS: PERCOCET-5 PO PRN ×2 (02:07→15:34)
[2019-10-14] MEDS: NEURONTIN PO SCH ×3 (06:34→21:30)
[2019-10-14] MEDS: PRILOSEC PO SCH (06:34)
[2019-10-14 07:38] LABS: INR 1.77
[2019-10-14 08:20] LABS: AGAP 11; BUN 15 mg/dL (8-22); CALCIUM 9.2 mg/dL (8.8-10.2); CHLORIDE 105 mmol/L (98-107); COSMO 286; CREATININE 0.7 mg/dL (0.7-1.2); ESTIMATED GFR > 60; GLUCOSE 104 mg/dL (70-104); MAGNESIUM 1.5 mg/dL (1.5-2.7); POTASSIUM 3.7 mmol/L (3.5-5.1); SODIUM 143 mmol/L (136-145); TCO2 27 mmol/L (25-35)
[2019-10-14] MEDS ORDERED: MAGNESIUM SULFATE 2 GM/S.W.I. 2 GM/50 ML IVPB IV ONE (08:31)
[2019-10-14] MEDS: SANTYL OINT TOP SCH (09:15)
[2019-10-14] MEDS: ENTRESTO 24 MG-26 MG TABLET PO SCH ×2 (09:15→21:30)
[2019-10-14] MEDS: LEVAQUIN PO SCH (09:15)
[2019-10-14] MEDS: COREG PO SCH ×2 (09:15→21:30)
[2019-10-14] MEDS: ICAR-C PO SCH (09:15)
[2019-10-14] MEDS: MYCOSTATIN SUSP PO SCH ×4 (09:15→21:30)
[2019-10-14] MEDS: DOXYCYCLINE PO SCH ×2 (09:15→21:30)
[2019-10-14] MEDS: COLACE LIQUID PO SCH ×2 (09:15→21:29)
[2019-10-14] MEDS: LOVENOX SUBQ SCH ×2 (09:15→21:29)
[2019-10-14] MEDS: MIRALAX PO SCH ×2 (09:15→21:17)
[2019-10-14] MEDS: LIPITOR PO SCH (21:30)
[2019-10-14] MEDS: COUMADIN PO SCH (21:30)
--- NOTE | 2019-10-14 22:21 | PROGRESS NOTE ---
DATE: 10/14/2019 SUBJECTIVE: The patient is resting comfortably in bed. No acute events noted overnight. OBJECTIVE: Vital Signs: Temperature 98.1 degrees, blood pressure 123/83, heart rate 95, respirations 20, O2 saturation 99% on room air. General: This is a young male lying in bed in no acute distress. Heart: S1, S2 normal, regular rate and rhythm. Lungs: Clear to auscultation bilaterally. Abdomen: Positive bowel sounds, soft, nontender, nondistended. Extremities: The patient has a right groin wound that appears to be healing. The patient also has a right lower extremity [id number] amputation stump. Neurologic: The patient is alert and oriented x3. He will answer with yes or no. He does have right hemiplegia. LABS: INR 1.77, sodium 143, potassium 3.7, chloride 105, CO2 27. ASSESSMENT AND PLAN: 1. Sepsis secondary to right groin wound and urinary tract infection. 2. Right groin infection secondary to Escherichia coli and methicillin-resistant Staphylococcus aureus. Continue on Levaquin and doxycycline. Continue with wound care. 3. Urinary tract infection secondary to Klebsiella. Continue on Levaquin. 4. Left ventricular thrombus. The INR is 1.7. Continue on Lovenox and Coumadin until the INR is therapeutic. 5. Chronic systolic congestive heart failure. Continue on entrance to Coreg and atorvastatin. 6. Ischemic cardiomyopathy with ejection fraction of 10 to 15 percent. Aware. The patient will need to follow up with Dr. Dos Santos as outpatient. 7. 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 Continue with physical therapy. 8. Constipation. Resolved. 9. Disposition. The patient will be discharged home once his INR is therapeutic. Administrative Liaison has made arrangements for the patient to have the required equipment at home and the patient's medications will be provided through [facility]. cc: Alexa Enriquez MD
[2019-10-15] MEDS: NEURONTIN PO SCH ×3 (06:22→22:01)
[2019-10-15] MEDS: PRILOSEC PO SCH (06:22)
[2019-10-15 07:36] LABS: HEMATOCRIT 35.5 % (42.0-52.0); HEMOGLOBIN 10.9 g/dL (14.0-18.0); MCHC 30.7 g/dL (33-37); MCV 94.4 FL (81-99); MPV 9.5 FL (7.4-10.4); RBC 3.76 XMIL (4.7-6.1); RDW 16.5 % (11.5-14.5); WBC 8.6 X1000 (4.8-10.8)
[2019-10-15 07:39] LABS: INR 1.87; PROTIME 21.9 Seconds (11.0-16.0)
[2019-10-15] MEDS: COLACE LIQUID PO SCH ×2 (09:37→22:01)
[2019-10-15] MEDS: DOXYCYCLINE PO SCH ×2 (09:39→22:02)
[2019-10-15] MEDS: SANTYL OINT TOP SCH (09:40)
[2019-10-15] MEDS: LEVAQUIN PO SCH (09:41)
[2019-10-15] MEDS: VITAMIN D PO SCH (09:41)
[2019-10-15] MEDS: ICAR-C PO SCH (09:42)
[2019-10-15] MEDS: ENTRESTO 24 MG-26 MG TABLET PO SCH ×2 (09:42→22:01)
[2019-10-15] MEDS: LOVENOX SUBQ SCH ×2 (09:43→22:01)
[2019-10-15] MEDS: MIRALAX PO SCH ×2 (09:43→22:02)
[2019-10-15] MEDS: MYCOSTATIN SUSP PO SCH ×4 (09:44→22:01)
[2019-10-15] MEDS: COREG PO SCH ×2 (11:09→22:02)
[2019-10-15] MEDS: PERCOCET-5 PO PRN (17:10)
[2019-10-15] MEDS: LIPITOR PO SCH (22:02)
[2019-10-15] MEDS: COUMADIN PO SCH (22:03)
--- NOTE | 2019-10-16 03:24 | PROGRESS NOTE ---
DATE: 10/15/2019 SUBJECTIVE: The patient is resting comfortably in bed. He has no complaints. OBJECTIVE: Vital Signs: Temperature 97.9 degrees, blood pressure 137/95, heart rate 111, respirations 18, O2 saturation is 100% on room air. General: This is a young male lying in bed in no acute distress. Heart: S1, S2 normal. Tachycardic. Lungs: Equal air entry bilaterally. No wheezing. No rales. No rhonchi. Abdomen: Positive bowel sounds. Soft, nontender, nondistended. Extremities: The patient has a right lower extremity [id number] amputation stump. The wound on the right groin appears to be healing. Neurologic: The patient is alert and oriented x3. The patient has right hemiplegia. LABORATORY DATA: INR 1.87. ASSESSMENT AND PLAN: 1. Sepsis secondary to a right groin wound and urinary tract infection. The patient is on oral antibiotics. 2. Right groin infection secondary to Escherichia coli and methicillin-resistant Staphylococcus aureus. Continue on Levaquin and doxycycline. Continue with wound care. 3. Urinary tract infection secondary to Klebsiella. Continue on Levaquin. 4. Left ventricular thrombus. The INR is 1.8. Continue on Lovenox and Coumadin. 5. Chronic systolic congestive heart failure. Stable. Continue on Entresto, Coreg and atorvastatin. 6. Ischemic cardiomyopathy with an ejection fraction of 10% to 15%. Aware. The patient will need to follow up with Dr. Dos Santos as outpatient. 7. 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 Continue with physical therapy. 8. Disposition. The patient will be discharged home once the INR is therapeutic. [employer] has arranged for the equipment that the patient will need at home and the patient's medications will be provided through the [facility]. cc: Alexa Enriquez MD MTDD
[2019-10-16] MEDS: NEURONTIN PO SCH ×2 (06:17→13:40)
[2019-10-16] MEDS: PRILOSEC PO SCH (06:17)
[2019-10-16] MEDS: SANTYL OINT TOP SCH (09:22)
[2019-10-16] MEDS: MYCOSTATIN SUSP PO SCH ×2 (09:30→13:40)
[2019-10-16] MEDS: COLACE LIQUID PO SCH (09:31)
[2019-10-16] MEDS: LOVENOX SUBQ SCH (09:31)
[2019-10-16] MEDS: ICAR-C PO SCH (09:31)
[2019-10-16] MEDS: ENTRESTO 24 MG-26 MG TABLET PO SCH (09:31)
[2019-10-16] MEDS: LEVAQUIN PO SCH (09:31)
[2019-10-16] MEDS: COREG PO SCH (09:31)
[2019-10-16] MEDS: DOXYCYCLINE PO SCH (09:31)
[2019-10-16] MEDS: MIRALAX PO SCH (09:32)
[2019-10-16 11:05] LABS: INR 2.09
[2019-10-16 11:07] VITALS: BP 125/86
== END 2019-10-16 16:23 | disposition home or self-care (01) | DRG 56 ==
LOC: DIRADM 07:12 → SUATTDRO 07:12 → 4N 09:42
PROVIDERS: ATTEND Internal Medicine

== ENCOUNTER 2019-11-17 11:12 | Inpatient (IN) ==
--- NOTE | 2019-11-17 12:10 | Diag Imaging Result Doc PS360 ---
EXAM: CHEST-2 VIEWS 11/17/2019 HISTORY: cp TECHNIQUE: PA and lateral chest COMMENT: There is cardiomegaly. There is apparent atelectasis in the left lower lobe. Compared to 10/08/2019 there has been no appreciable change. IMPRESSION: Cardiomegaly. Electronically signed by Brenton Dey 11/17/2019 12:08 PM
--- NOTE | 2019-11-17 12:59 | EKG Report ---
Test Performed on : 11/17/2019 11:32:43 AM Test Reason : chest pain Blood Pressure : / mmHG Vent. Rate : 087 BPM Atrial Rate : 087 BPM P-R Int : 186 ms QRS Dur : 106 ms QT Int : 424 ms P-R-T Axes : 049 -47 103 degrees QTc Int : 510 ms Normal sinus rhythm. Biatrial enlargement Left axis deviation Pulmonary disease pattern Left ventricular hypertrophy Inferior infarct , age undetermined ST & T wave abnormality, consider lateral ischemia Prolonged QT Abnormal ECG When compared with ECG of 29-SEP-2019 10:45, Inferior infarct is now present T wave inversion less evident in Lateral leads Unconfirmed Result
[2019-11-17] MEDS ORDERED: MORPHINE IV ONE (14:27)
[2019-11-17] MEDS ORDERED: ASPIRIN PO ONE (14:27)
[2019-11-17 15:22] LABS: BASO# 0.05 X1000 (0.0-0.2); BASO% 0.7 % (0.0-0.8); EOS# 0.12 X1000 (0.0-0.7); EOS% 1.8 % (0.0-10.0); HEMATOCRIT 36.1 % (42.0-52.0); HEMOGLOBIN 11.4 g/dL (14.0-18.0); LYMPH# 3.24 X1000 (1.2-3.4); LYMPH% 47.4 % (20.5-51.1); MCH 28.8 PG (27-31); MCHC 31.6 g/dL (33-37); MCV 91.2 FL (81-99); MONO# 0.62 X1000 (0.11-0.59); MONO% 9.1 % (1.7-9.3); MPV 10.1 FL (7.4-10.4); PLT 256 X1000 (130-400); RBC 3.96 XMIL (4.7-6.1); WBC 6.83 X1000 (4.8-10.8)
--- NOTE | 2019-11-17 15:24 | PROVIDER DOCUMENTATION ---
HPI-General Adult - General Chief Complaint: Shortness of Breath Stated Complaint: CHEST PAIN,SOB,RIGHT ARM PAIN,NOT EATING Time Seen by Provider: 11/17/19 14:20 Source: patient Allergies/Adverse Reactions: Patient Allergies Allergy/AdvReac Type Severity Reaction Status Date / Time No Known Allergies Allergy Verified 11/17/19 14:20 Home Medications: Home Medication List Medication Instructions Recorded Confirmed Last Taken Type Sacubitril/Valsartan [Entresto 24 1 ea PO BID 09/29/19 11/17/19 Unknown History mg-26 mg Tablet] ATORVAstatin [Lipitor] 40 mg PO QHS #30 tab 10/16/19 11/17/19 Unknown Rx Carvedilol [Coreg] 3.125 mg PO BID #60 tab 10/16/19 11/17/19 Unknown Rx Doxycycline 100 mg PO BID #20 tab 10/16/19 11/17/19 Unknown Rx Ergocalciferol (Vitamin D2) 50,000 unit PO Q7D #8 cap 10/16/19 11/17/19 Unknown Rx [Vitamin D] Gabapentin [Neurontin] 100 mg PO TID@0700,1400,2100 #90 10/16/19 11/17/19 Unknown Rx cap Oxycodone/APAP 5 mg/325 mg 1 ea PO Q4H PRN PRN #20 10/16/19 11/17/19 Unknown Rx [Percocet-5] Warfarin Sodium [Coumadin] 7.5 mg PO QHS #30 tab 10/16/19 11/17/19 Unknown Rx - History of Present Illness -Gen Adult Nature of Presenting Problems: Patient comes in with complaint of chest pain and SOB. He has recently had a CVA and has residual right sided that is flaccid with a right lower BKA. He is also for the most part nonverbal. Family at the bedside provided ROS. He seems some what anxious and short of breath despite his O2 saturation being 96-98%. Review of Systems - Adult - REVIEW OF SYSTEMS - ADULT Constitutional: reports: no symptoms reported. denies: chills, fever, fatique, night sweats, weight gain Eyes: reports: no symptoms reported. denies: discharge, dry eyes, decreased vision, redness Ears, Nose, Mouth & Throat: reports: no symptoms reported. denies: ear discharge, hearing loss, tinnitus, epistaxis, nose pain, mouth/dental pain, mouth swelling, hoarseness, throat swelling Cardiovascular: reports: see HPI, chest pain, edema. denies: heart murmur, irregular heart rate, orthopnea, poor circulation, PND, syncope Respiratory: reports: see HPI, shortness of breath, wheezing. denies: chronic cough, cough, dyspnea on exertion, excessive sputum production, pleurisy Gastrointestinal: reports: no symptoms reported. denies: abdominal pain, hematemesis, constipation, diarrhea, difficulty swallowing, poor appetite, rectal bleeding Genitourinary: reports: no symptoms reported. denies: dysuria, discharge, hemat uria, hesitency, urinary retention, urgency Musculoskeletal: reports: no symptoms reported. denies: bone pain, back pain, frequent leg cramps, joint pain, joint swelling, muscle weakness, neck pain Integumentary: reports: no symptoms reported. denies: hives, hair loss, itching, mole changes, nail changes, rash, skin sores/ulcer Neurological: reports: no symptoms reported. denies: ataxia, dizziness/vertigo, loss of balance, numbness, seizure, syncope, tremors Psychiatric: reports: no symptoms reported. denies: anxiety, anti-depressant use, alcohol/drug dependence, emotional problems, insomnia, panic attacks, suicidal thoughts Endocrine: reports: no symptoms reported. denies: change in skin pigment, excessive sweating, goiter, cold intolerance, heat intolerance, increased hunger, increased thirst, polyuria Hematologic/Lymphatic: reports: no symptoms reported. denies: blood clots, easy bruising, low blood count, lymphedema, prolonged bleeding, swollen lymph nodes, transfusions Allergic/Immunologic: reports: no symptoms reported. denies: allergic reactions, allergic rhinitis, eczema, frequent infections, hay fever, hives, positive PPD, urticaria All Other Systems: Reviewed and Negative Past History - Adult - PAST MEDICAL HISTORY-ADULT Review of Records: reports: Old Records Reviewed, Nursing Assessment Review, Medications Reviewed, Social history reviewed & non-contributory. Major Childhood Illnesses: reports: denies history Cardiovascular: reports: cardiac disease, CAD, CHF, PVD Respiratory: reports: denies history Gastrointestinal: reports: denies history Obstetrical/Gynecological: reports: denies history Genitourinary: reports: denies history Musculoskeletal: reports: denies history Neurological: reports: CVA Endocrine/Immune: reports: denies history Other Conditions: reports: denies history - PRIOR SURGERIES/PROCEDURES Surgical/Procedure History: reports: reviewed, not pertinent - PRIOR HOSPITALIZATIONS Prior Hospitalizations: reports: none - IMMUNIZATION STATUS Childhood Immunizations: UTD Flu Vaccine: See Nurse Assessment - FAMILY HISTORY Family History: reviewed, not pertinent - SOCIAL HISTORY Smoking: denies Substance Use: none/never Alcohol Use Frequency: never Living Situation: family Physical Exam-General - PHYSICAL EXAM-ADULT Initial Vital Signs Reviewed: Yes - CONSTITUTIONAL General Appearance: appears well, alert, no apparent distress - EYES Eyes: PERRL/EOMI, pink conjunctivae, anisocoria - HEAD, EARS, NOSE, MOUTH & THROAT HENMT: normocephalic/atraumatic, moist mucous membranes, normal ENT inspection - NECK Neck: non-tender, full range of motion - RESPIRATORY Respiratory: chest non-tender, crackles, wheezing - CARDIOVASCULAR Cardiovascular: normal peripheral pulses, regular rate, rhythm - GASTROINTESTINAL (ABDOMEN) Abdominal Exam: normal bowel sounds, non tender, soft - LYMPHATIC Lymphatic: no adenopathy - MUSCULOSKELETAL Back Exam: normal inspection, no CVA tenderness, no vertebral tenderness Extremity: normal range of motion, non-tender, normal gait - SKIN Integumentary: normal color, normal turgor, warm/dry - NEUROLOGIC Neurologic: abnormal hand plug shaper II-XII - PSYCHIATRIC Psych/Mental Status: anxious, other (nonverbal had to eval) Progress - PLAN OF CARE/RESULTS Progress/Plan/Lab Results: Vital Signs - 8 hr 11/17/19 11:22 Temperature 98.5 F Pulse Rate 87 Respiratory Rate 16 Blood Pressure 115/92 O2 Sat by Pulse Oximetry 100 Laboratory Results - last 24 hr 11/17/19 15:10 WBC 6.83 RBC 3.96 L Hgb 11.4 L Hct 36.1 L MCV 91.2 MCH 28.8 MCHC 31.6 L RDW Std Deviation 17.0 H Plt Count 256 MPV 10.1 Immature Gran % (Auto) 0.0 Neut % (Auto) 41.0 L Lymph % (Auto) 47.4 Lawrence % (Auto) 9.1 Eos % (Auto) 1.8 Baso % (Auto) 0.7 Immature Gran # (Auto) 0.00 Neut # (Auto) 2.80 Lymph # (Auto) 3.24 Lawrence # (Auto) 0.62 H Eos # (Auto) 0.12 Baso # (Auto) 0.05 Orders Category Date Time Status If abnormal EKG, order: NOW Care 11/17/19 11:39 Active CHEST-2 VIEWS [RAD] Stat Exams 11/17/19 11:39 Completed CBC WITH DIFF [HEME] Stat Lab 11/17/19 15:10 Completed CK PROFILE [SP CHEM] Stat Lab 11/17/19 15:10 Received CMP [COMPREHENSIVE METABOLIC PANEL] [CHEM] Stat Lab 11/17/19 15:10 Received PRO B-NATRIURETIC PEPTIDE Stat Lab 11/17/19 15:10 Received PROTIME WITH INR [COAG] Stat Lab 11/17/19 15:10 Received PTT [COAG] Stat Lab 11/17/19 15:10 Received TROPONIN T HIGH SENSITIVITY Stat Lab 11/17/19 15:10 Received UA NIMS W/REFLEX CULT [URINALYSIS] Stat Lab 11/17/19 14:34 Uncollected Aspirin Med 11/17/19 14:27 Discontinued 325 mg PO NOW ONE Morphine Med 11/17/19 14:27 Discontinued 2 mg IV NOW ONE CP/Palp <45 No Known Cardiac Hx Stat Oth 11/17/19 11:38 Ordered EKG [EKG] Stat Ther 11/17/19 11:39 Draft Result Diagrams: 11/17/19 15:10 11/17/19 15:10 - XRAY 1 XRAY Study: Chest Impression: Abnormal, See EMR Report XRAY Interpretation: cardiomegaly mildly increased pulm vascular - CONSULTS/PCP/HOSPITALIST Notification #1 *Consult/PCP/Hospitalist*: benavides Time Discussed: 17:10 Consult Disposition: Will see in ED, Admit Departure - Departure Date of Disposition Decision: 11/17/19 Time of Disposition Decision: 17:10 DIAGNOSIS: Supratherapeutic international normalized ratio (INR) CHF exacerbation Qualifiers: Heart failure type: combined systolic and diastolic Qualified Code(s): I50.43 - Acute on chronic combined systolic (congestive) and diastolic (congestive) heart failure Chest pain Qualifiers: Chest pain type: other chest pain Qualified Code(s): R07.89 - Other chest pain Disposition: ADMITTED INPATIENT 09 Certified Medical Emergency: Emergent Condition: Good Referrals and Follow-Ups: Chapo Ward MD [Primary Care Provider] - - Critical Care Note This patient required my direct & personal management of CC.: No Attestation - Physician/ HOANG Attestation Patient care was provided by Advanced Practice Provider:: Yes Advanced Practice Provider:: Dom Pacheco Advanced Practice Provider documentation review:: The Mid-level provider documentation, treatment plan and medical decision making was reviewed by the physician who agrees with all treatment and medical decision making by the MLP. The physician spent face to face time with patient:: No Advanced Practice Provider documentation review:: Supervising physician onsite and consulted in the evaluation and care of this patient. The physician did not have a face to face encounter with the patient.
[2019-11-17 15:30] LABS: PTT 56.6 Seconds (22.3-41.8)
[2019-11-17 15:42] LABS: PROTIME 60.3 Seconds (11.0-16.0)
[2019-11-17 15:51] LABS: AGAP 14; ALB/GLOB RATIO 1.2; ALBUMIN 3.6 g/dL (3.5-5.0); ALKALINE PHOSPHATASE 127 U/L (32-122); BUN 20 mg/dL (8-22); CHLORIDE 109 mmol/L (98-107); CK PROFILE 152 U/L (24-204); COSMO 290; ESTIMATED GFR > 60; GLUCOSE 112 mg/dL (70-104); GOT 29 U/L (10-34); GPT 30 U/L (10-44); POTASSIUM 3.7 mmol/L (3.5-5.1); SODIUM 144 mmol/L (136-145); TCO2 21 mmol/L (25-35); TOTAL BILIRUBIN 1.64 mg/dL (0.20-1.00); TOTAL PROTEIN 6.5 g/dL (6.3-8.3)
[2019-11-17] MEDS: LASIX IV ONE ×2 (16:57→17:00)
--- NOTE | 2019-11-17 18:49 | HISTORY AND PHYSICAL ---
CHIEF COMPLAINT: Shortness of breath and chest discomfort. SOURCE OF HISTORY: Medical records and ER records. The patient's family has already left. I would again try and get in touch with them, I could not find them in the waiting area. 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 The patient was recently discharged from the hospital on 10/15/2019 where he had a prolonged course with right lower extremity groin and stump wound infection, and was discharged on oral antibiotics with his family. His family was taking care of him. He came in with chief complaint of chest pain and shortness of breath. He also on emergency room visit was found to be anxious, short of breath, and his oxygen saturation was around 96 to 97 percent. On presentation, his vitals were temperature of 98.5 degrees, pulse 87, respiratory 16, blood pressure 115/92 and saturating 100% on room air. Though he was hemodynamically stable, he had profound lab abnormality with supratherapeutic INR of 6.6, [place] [address]. Chest x-ray had on my review, pulmonary vascular congestion. He was given a dose of aspirin and intravenous Lasix, and hospitalist team was consulted for further management. At the time of my evaluation, the patient appears short of breath, and is in mild distress because of that. He states yes to questions related to shortness of breath. He states no to cough. However, the history is slightly unreliable considering he is nonverbal at baseline. REVIEW OF SYSTEMS: I could not obtain in detail. PAST MEDICAL HISTORY: 1. History of multiple ischemic as well as hemorrhagic CVA since 2016, latest being in September 2019 status post percutaneous endoscopic gastrostomy tube and right-sided hemiplegia. 2. Right iliac, common femoral, popliteal arterial thrombosis due to embolization from left ventricular thrombus status post right above-knee amputation at [facility] in September of 2019. 3. Right amputation site wound infection with MRSA in October of 2019. 4. History of left ventricular thrombus. 5. History of chronic systolic congestive heart failure due to nonischemic cardiomyopathy with ejection fraction of 10 to 15 percent. 6. History of essential hypertension. 7. History of medical noncompliance. 8. History of ARDS secondary to bronchitis and pneumonia at the age of 21, requiring to have a tracheostomy. PAST SURGICAL HISTORY: 1. Tracheostomy with reversal. 2. PEG tube placement. 3. Right above-knee amputation. ALLERGIES: No known allergies. FAMILY HISTORY: I could not obtain family history. MEDICATIONS: He is listed to be takin. Entresto 24/26 mg 1 tablet b.i.d. 2. Warfarin 7.5 mg at nighttime. 3. Atorvastatin 40 mg at nighttime. 4. Carvedilol 3.125 mg b.i.d. 5. Doxycycline 100 mg b.i.d. He must have completed a course of it. 6. Gabapentin 100 mg t.i.d. 7. Percocet 5 one tablet every 4 hours as needed. 8. Vitamin 50,000 units every 7 days. PHYSICAL EXAMINATION: VITAL SIGNS: Temperature 98.5 degrees, pulse 87, respiratory 16, blood pressure 115/92, and saturating 100% on room air. GENERAL: Mr. Nieto is not in any acute distress. HEENT: Oral cavity is moist. LUNGS: Air entry bilaterally equal. No wheeze or rhonchi. Mild infra axillary crackles. HEART: S1, S2 normal. Regular. No murmur or gallop. ABDOMEN: Soft. There is a PEG tube. There is some tenderness around the PEG tube site, though there are no signs of inflammation. Active bowel sounds. EXTREMITIES: He has left lower extremity edema extending up to midshin level. Right lower extremity has above-knee amputation. Right groin site has about 1 cm wound which is healing. There was no active oozing except only trace serous scab. He has intact dorsalis pedis and posterior tibial pulses on the left lower extremity. LABORATORY: Labs are suggestive of WBC 6.8, hemoglobin 11.4, and platelets 256,000. INR 6.6. BUN 20, creatinine 1, and sodium 144. His total bilirubin [place] 1[place] [address]. MICROBIOLOGICAL: No microbiological data. DIAGNOSTIC: Chest x-ray on presentation had cardiomegaly. ASSESSMENT AND PLAN: 1. Acute on chronic systolic congestive heart failure exacerbation based on clinical examination, elevated proBNP, and symptoms. 2. Supratherapeutic INR in the setting of warfarin use. 3. History of multiple ischemic and hemorrhagic CVA latest in September 2019. 4. History of PEG tube placement though the patient is taking by mouth. 5. History of right above-knee amputation and amputation site wound infection status post antibiotics. 6. History of left ventricular thrombus. 7. History of right iliac, common femoral, and popliteal artery thrombosis, status post above- knee amputation. PLAN: 1. The patient received intravenous dose of Lasix. I will start him on oral Lasix which he was not listed to be taking by mouth starting tomorrow. I will follow up with serial kidney function, electrolytes, and proBNP. I will resume his home medication for congestive heart failure. 2. Management of his supratherapeutic INR is going to be challenging. It is more than 5 without any active signs of bleeding. I would just watch it without giving him any vitamin K since previously he has had thrombosis of left ventricle as well as the right lower extremity requiring extensive surgery. Of note, the patient also had intracranial hemorrhage in the past. DISPOSITION: I will monitor patient under telemetry unit. I will again try and reach out to patient's family to update them on plan of care. cc: Tate Francisco MD
[2019-11-17] MEDS: NEURONTIN PO SCH (21:32)
[2019-11-17] MEDS: ENTRESTO 24 MG-26 MG TABLET PO SCH (21:32)
[2019-11-17] MEDS: COREG PO SCH (21:32)
[2019-11-17] MEDS: LIPITOR PO SCH (21:32)
[2019-11-17] MEDS ORDERED: APRESOLINE IV PRN (23:09)
[2019-11-17] MEDS: PERCOCET-5 PO PRN (23:40)
[2019-11-18 01:50] LABS: URINE SOURCE CLEAN CATCH
[2019-11-18 01:54] LABS: BILIRUBIN URINE NEGATIVE (NEGATIVE); BLOOD URINE NEGATIVE (NEGATIVE); COLOR YELLOW; GLUCOSE URINE NEGATIVE (NEGATIVE); KETONE URINE NEGATIVE (NEGATIVE); LEUKOCYTES URINE NEGATIVE (NEGATIVE); NITRITE URINE NEGATIVE (NEGATIVE); PH URINE 7.5; PROTEIN URINE 50 mg/dL (NEGATIVE); TURBIDITY URINE CLEAR (CLEAR); UROBILINOGEN URINE NORMAL (NORMAL)
[2019-11-18 01:56] LABS: UR EPITHELIAL CELLS <10 /HPF (<10); URINE BACTERIA NEGATIVE /HPF; URINE RBC <10 /HPF (<10); URINE WBC <10 /HPF (<10)
[2019-11-18 02:59] LABS: INR 6.61
[2019-11-18] MEDS: PERCOCET-5 PO PRN ×2 (03:10→22:04)
[2019-11-18] MEDS: APRESOLINE IV PRN (03:10)
[2019-11-18] MEDS: NEURONTIN PO SCH ×3 (06:13→22:07)
[2019-11-18] MEDS: LASIX PO SCH ×2 (06:13→22:03)
[2019-11-18 07:59] LABS: BASO# 0.05 X1000 (0.0-0.2); BASO% 0.7 % (0.0-0.8); EOS# 0.17 X1000 (0.0-0.7); EOS% 2.3 % (0.0-10.0); HEMATOCRIT 38.5 % (42.0-52.0); HEMOGLOBIN 12.4 g/dL (14.0-18.0); IMM GRAN# 0.02 X1000 (0.0-0.04); IMM GRAN% 0.3 % (0.0-0.5); LYMPH# 2.95 X1000 (1.2-3.4); LYMPH% 40.6 % (20.5-51.1); MCHC 32.2 g/dL (33-37); MONO# 0.76 X1000 (0.11-0.59); MONO% 10.5 % (1.7-9.3); MPV 10.4 FL (7.4-10.4); NEUT# 3.32 X1000 (1.4-6.5); NEUT% 45.6 % (42.2-75.2); PLT 285 X1000 (130-400); RBC 4.28 XMIL (4.7-6.1); RDW 16.7 % (11.5-14.5); WBC 7.27 X1000 (4.8-10.8)
[2019-11-18 08:17] LABS: INR 4.51; PROTIME 44.4 Seconds (11.0-16.0)
[2019-11-18 08:21] LABS: AGAP 14; BUN 15 mg/dL (8-22); CHLORIDE 107 mmol/L (98-107); COSMO 282; ESTIMATED GFR > 60; GLUCOSE 94 mg/dL (70-104); MAGNESIUM 1.7 mg/dL (1.5-2.7); POTASSIUM 3.3 mmol/L (3.5-5.1); SODIUM 141 mmol/L (136-145); TCO2 20 mmol/L (25-35)
--- NOTE | 2019-11-18 12:00 | PROGRESS NOTE ---
DATE: 11/18/2019 INTERVAL HISTORY: No acute events overnight. His INR decreased to less than 5 overnight. SUBJECTIVE: I am seeing him in his room, no family member is around. He does not appear in any acute distress. He is comfortable. He answers some simple questions, but he does have baseline inability to answer, baseline nonverbal status, so he could not contribute to the history meaningfully. VITALS: Temperature 98 degrees, pulse 85, respiratory rate 19, blood pressure 130/100, he is saturating 97% on room air. PHYSICAL EXAMINATION: General: Mr. Nieto is not in acute distress. HEENT: Oral cavity is moist. Lungs: Air entry bilaterally equal. No wheeze or rhonchi, mild crackles infrascapular region. Cardiovascular: S1, S2 normal. No murmur or gallop. Abdomen: Soft. There is a PEG tube. Extremities: His left lower extremity edema has slightly improved. Right lower extremity has amputation. The amputation incision site is well healed. The groin incision is healing. There is no discharge. Neurologic: He is alert, he is following commands. He is moving his left upper and left lower extremities spontaneously. He is also able to move right lower extremity. He is not able to move his right upper extremity. His speech, he is able to answer simple questions by yes and no, but has been inconsistent. LABS: WBC 7.2, hemoglobin 12.4, platelet 285,000. INR 4.5, potassium 3.3 which is currently being repleted. BUN 15, creatinine 1. His magnesium is 1.7. No positive microbiological or new imaging data. ASSESSMENT AND PLAN: 1. Mild acute on chronic systolic congestive heart failure exacerbation. Continue oral Lasix, carvedilol, Entresto and atorvastatin. He previously had history of nonischemic cardiomyopathy. He would need outpatient cardiology followup. 2. Supratherapeutic INR. I am holding his warfarin tonight and would plan on resuming it on November 18 onwards. 3. History of multiple ischemic and hemorrhagic CVA, latest in September 2019, history of PEG tube placement, though he has been able to take by mouth, history of right above- knee amputation with amputation site wound MRSA infection. 4. Right iliac common femoral and popliteal artery thrombosis, history of left ventricular thrombus, aware. 5. I will keep him on Percocet as needed. DISPOSITION: Continue monitor patient inside the hospital. Plan of care discussed with the patient. I discussed with the nurse about paging me whenever the family comes by so that I could talk with her in person. ADDENDUM: I went back to talk with his fiancee at bedside. I discussed with her about Mr. Nieto's CHF, supratherapeutic INR and management plan and I answered all of her questions. Later on I was informed by the mmd unit teacher that she had also requested if you we could take Mr. Nieto's PEG tube out. cc: Tate Francisco MD MTDD
[2019-11-18] MEDS: ENTRESTO 24 MG-26 MG TABLET PO SCH ×2 (12:23→22:04)
[2019-11-18] MEDS: COREG PO SCH ×2 (12:23→22:04)
[2019-11-18] MEDS: KLOR-CON PO SCH ×2 (12:28→22:03)
[2019-11-18] MEDS: MAGNESIUM SULFATE 2 GM/S.W.I. 2 GM/50 ML IVPB IV SCH ×2 (13:11→15:54)
[2019-11-18] MEDS: LIPITOR PO SCH (22:03)
[2019-11-19] MEDS: APRESOLINE IV PRN (04:24)
[2019-11-19] MEDS: PERCOCET-5 PO PRN ×2 (04:25→13:34)
[2019-11-19] MEDS: NEURONTIN PO SCH ×3 (06:27→22:44)
[2019-11-19] MEDS: LASIX PO SCH ×2 (06:27→17:24)
[2019-11-19 07:06] LABS: INR 2.91; PROTIME 31.3 Seconds (11.0-16.0)
[2019-11-19 07:23] LABS: AGAP 11; BUN 12 mg/dL (8-22); CALCIUM 9.3 mg/dL (8.8-10.2); CHLORIDE 107 mmol/L (98-107); COSMO 281; ESTIMATED GFR > 60; GLUCOSE 135 mg/dL (70-104); POTASSIUM 3.7 mmol/L (3.5-5.1); SODIUM 140 mmol/L (136-145); TCO2 22 mmol/L (25-35)
[2019-11-19 07:58] LABS: BASO# 0.04 X1000 (0.0-0.2); BASO% 0.5 % (0.0-0.8); EOS# 0.27 X1000 (0.0-0.7); EOS% 3.3 % (0.0-10.0); HEMATOCRIT 44.5 % (42.0-52.0); HEMOGLOBIN 14.6 g/dL (14.0-18.0); LYMPH# 2.54 X1000 (1.2-3.4); LYMPH% 31.2 % (20.5-51.1); MCHC 32.8 g/dL (33-37); MCV 88.5 FL (81-99); MONO# 0.68 X1000 (0.11-0.59); MONO% 8.4 % (1.7-9.3); MPV 10.4 FL (7.4-10.4); NEUT# 4.61 X1000 (1.4-6.5); NEUT% 56.6 % (42.2-75.2); PLT 327 X1000 (130-400); RBC 5.03 XMIL (4.7-6.1); RDW 16.8 % (11.5-14.5); WBC 8.14 X1000 (4.8-10.8)
[2019-11-19] MEDS: COREG PO SCH ×2 (09:12→22:44)
[2019-11-19] MEDS: ENTRESTO 24 MG-26 MG TABLET PO SCH ×2 (09:12→22:44)
--- NOTE | 2019-11-19 12:31 | PROGRESS NOTE ---
DATE: 11/19/2019 INTERVAL HISTORY: No acute events overnight. He did have slightly high diastolic blood pressure. SUBJECTIVE: He was asleep. He woke up to strong verbal stimuli. He was able to follow commands. VITALS: Temperature 97.9 degrees, pulse 86, respiratory 18, blood pressure currently 108/69. He is saturating 99% on room air. Subjective: Mr. Nieto denies new complaints, however exam is limited. PHYSICAL EXAMINATION: Not in acute distress.HEENT: Oral cavity is moist. Lungs: Air entry bilaterally equal. No wheeze, rhonchi, crackles. Cardiovascular: S1, S2 normal. No murmur or gallop. Abdomen: Soft. He has a PEG tube. Mild tenderness around it without any signs of inflammation, erythema or pus. Active bowel sounds. Extremities: Resolved left lower extremity edema. Neurologically: He becomes awake and alert during encounter. He follows simple commands like opening mouth, shaking hand with his left hand. He is moving his left upper and lower extremities spontaneously. He is also able to move right lower extremity stump which is well healed. His right groin wound is also healing well. I could see very healthy scar tissue. I could not see any scab or oozing today. LABORATORY: WBC 8.1, hemoglobin 14.6, platelets 327,000. INR 2.9, BUN 12, creatinine 1. No positive microbiological data. No new imaging. ASSESSMENT AND PLAN: 1. Mild acute on chronic systolic congestive heart failure exacerbation. Continue oral Lasix, carvedilol, Entresto, atorvastatin. He had history of nonischemic cardiomyopathy. He would need outpatient cardiology followup. 2. Supratherapeutic INR, now resolved after holding warfarin. I will resume his oral warfarin tonight and follow up with INR tomorrow. 3. History of multiple ischemic and hemorrhagic cerebrovascular accident, latest in September 2019 and status post percutaneous endoscopic gastrostomy tube, though he is able to take by mouth. The percutaneous endoscopic gastrostomy tube was placed in [facility]. I would advise him to have outpatient follow up with the surgeon doctor at [facility]. 4. History of right lower extremity arterial thrombosis, status post right above-knee amputation, which was complicated by Methicillin resistant staphylococcus aureus and Escherichia coli wound infection, now appears to be healing well. 5. He also had history of left ventricular thrombus for which he is on warfarin. 6. Others continue Percocet as needed for pain. DISPOSITION: Monitor patient inside the floor. If his INR is within acceptable range, my plan is to discharge him home in next 24 hours. cc: Tate Francisco MD
[2019-11-19] MEDS: MIRALAX PO SCH (17:24)
[2019-11-19] MEDS ORDERED: COUMADIN PO SCH (21:00)
[2019-11-19] MEDS: LIPITOR PO SCH (22:44)
[2019-11-19] MEDS: DULCOLAX PR SCH (22:46)
[2019-11-20] MEDS: LASIX PO SCH (05:47)
[2019-11-20] MEDS: NEURONTIN PO SCH ×3 (05:47→13:16)
[2019-11-20 07:32] LABS: BASO# 0.04 X1000 (0.0-0.2); BASO% 0.5 % (0.0-0.8); EOS# 0.35 X1000 (0.0-0.7); EOS% 4.2 % (0.0-10.0); HEMATOCRIT 48.8 % (42.0-52.0); HEMOGLOBIN 15.6 g/dL (14.0-18.0); LYMPH# 3.22 X1000 (1.2-3.4); LYMPH% 38.3 % (20.5-51.1); MCH 28.3 PG (27-31); MCV 88.4 FL (81-99); MONO# 0.99 X1000 (0.11-0.59); MONO% 11.8 % (1.7-9.3); MPV 10.2 FL (7.4-10.4); NEUT# 3.81 X1000 (1.4-6.5); NEUT% 45.2 % (42.2-75.2); PLT 342 X1000 (130-400); RBC 5.52 XMIL (4.7-6.1); RDW 16.6 % (11.5-14.5); WBC 8.41 X1000 (4.8-10.8)
[2019-11-20 07:34] LABS: INR 2.09
[2019-11-20 07:48] LABS: AGAP 13; BUN 14 mg/dL (8-22); CALCIUM 9.5 mg/dL (8.8-10.2); CHLORIDE 103 mmol/L (98-107); COSMO 276; CREATININE 1.1 mg/dL (0.7-1.2); ESTIMATED GFR > 60; GLUCOSE 102 mg/dL (70-104); MAGNESIUM 1.9 mg/dL (1.5-2.7); POTASSIUM 3.5 mmol/L (3.5-5.1); SODIUM 138 mmol/L (136-145); TCO2 22 mmol/L (25-35)
[2019-11-20] MEDS: COREG PO SCH (08:19)
[2019-11-20] MEDS: ENTRESTO 24 MG-26 MG TABLET PO SCH (08:19)
[2019-11-20] MEDS: MIRALAX PO SCH (08:19)
[2019-11-20] MEDS: DULCOLAX PR SCH ×2 (08:19→08:25)
[2019-11-20 15:35] VITALS: BP 92/71
--- NOTE | 2019-11-20 19:28 | DISCHARGE SUMMARY ---
ADMISSION DATE: 11/17/2019 DISCHARGE DATE: 11/20/2019 DISCHARGE DISPOSITION: Home with family. DISCHARGE CONDITION: Hemodynamically stable. Mr. Nieto is not in acute respiratory distress. His INR has become therapeutic and his proBNP has decreased. DISCHARGE DIAGNOSES: 1. Mild acute on chronic systolic congestive heart failure exacerbation. 2. Supratherapeutic INR. 3. Hypokalemia. OTHER DIAGNOSES: 1. History of multiple ischemic and hemorrhagic cerebrovascular accidents since 2016, latest one in September 2019. Status post PEG tube, though patient is now able to take by mouth with residual right upper extremity weakness. 2. History of right lower extremity femoral, popliteal and iliac arterial thrombosis, status post right above-knee amputation. 3. History of methicillin-resistant Staphylococcus aureus and Escherichia coli wound infection of right lower extremity amputation stump. 4. History of left ventricular thrombus. DISCHARGE MEDICATIONS: 1. Entresto 24/26 mg 1 tablet b.i.d. 2. Warfarin 7.5 mg at nighttime. 3. Atorvastatin 40 mg at nighttime. 4. Carvedilol 3.125 mg b.i.d. 5. Furosemide 40 mg daily, 60 tablets have been prescribed. 6. Gabapentin 100 mg t.i.d. 7. Percocet 5 mg, one tablet every 4 hours as needed. 8. Vitamin D2 50,000 units every 7 days. PHYSICAL EXAMINATION: Vital Signs: At the time of discharge, temperature 98.1 degrees, pulse 83, respiratory 14, blood pressure 119/71. He is saturating 98% on room air. HEENT: At time of discharge, oral cavity is moist. Lungs: Air entry bilaterally equal. No wheeze, rhonchi or crackles. Cardiovascular: Normal. No gallop. Abdomen: Soft, nontender. He has a PEG tube. Active bowel sounds. Extremities: No left lower extremity edema. Right lower extremity has above-knee amputation. The stump is well healed. The groin wound has almost healed up with dry scab. Neurologic: He is alert. He was occasionally able to answer questions with yes and no. He has a right upper extremity weakness. His strength is 5/5 on left upper and lower extremity, as well as he was also able to move his right lower extremity above-knee stump. He was not able to verbalize properly, though he was able to make sounds next. LABS: At the time of admission/discharge: Hemoglobin was 11.4, which improved to 15.6 at the time of discharge, platelet 342,000. INR was 6.61 on presentation which improved to 2.09 at the time of discharge. BUN 14, creatinine 1.1. ProBNP is 2700 which improved from 13,000 on the time of presentation. No microbiological data. IMAGIN. During hospital admission chest x-ray on presentation had cardiomegaly. 2. Electrocardiogram on presentation had normal sinus rhythm, biatrial enlargement, left axis deviation, pulmonary disease pattern and left ventricle hypertrophy. HOSPITAL COURSE SUMMARY: Mr. Nieto is 39 years man with a complicated past medical history including ischemic and hemorrhagic CVAs, left ventricular thrombus and right lower extremity arterial thrombus requiring amputation in [facility] and on chronic anticoagulation on warfarin since then. He came in on 11/17/2019 with chief complaints of shortness of breath and chest discomfort. In the emergency room his temperature was 98.5 degrees, pulse of 87, respiratory rate of 16, and blood pressure of 115/92. He was saturating 100% on room air. However, he did appear in respiratory distress. On physical examination, he was also found to have an elevated INR of 6.6 and proBNP of 13,013. Considering his prior history of intracranial hemorrhages, it was decided to keep him in the hospital for further management. The patient was initially started on IV Lasix which was changed to oral Lasix as it was thought that his shortness of breath, lower extremity edema and elevated proBNP was related to acute on chronic systolic congestive heart failure. Previously, he did have history of nonischemic cardiomyopathy with ejection fraction of 10% to 15% and with Lasix his clinical condition improved, including decrease in proBNP, decrease in lower extremity edema and symptoms. It was decided to discharge him on oral Lasix. His Coumadin was held for a couple of nights following which his INR decreased from over 6 to close to 2.9 at which point the Coumadin was restarted. He should follow up with his senior management consultant. At the time of discharge, the patient was provided detailed discharge instructions including following up with Dr. Ward who is his primary senior management consultant who manages his Coumadin to let him know about the recent admission. Though patient's fiancee had requested PEG tube removal during this hospital admission, it was actually placed in [facility] and the patient was able to tolerate food by mouth since the last several weeks. It was decided to get the PEG tube out electively as an outpatient, preferably at [facility], though [facility] physician contact information was provided to her as well. TIME SPENT: There were 35 minutes spent in discharging this patient. PLAN OF CARE: Plan of care was discussed with the patient's nurse. I tried to reach out to patient's fiancee on phone, but there was no option to leave a voice message. I provided detailed discharge instructions in written. cc: Tate Francisco MD
== END 2019-11-20 17:48 | disposition home or self-care (01) | DRG 292 ==
LOC: ED 11:12 → 4N 18:03
PROVIDERS: ATTEND Internal Medicine